=== PATIENT | female | born 1935 | race Caucasian/White ===

== ENCOUNTER → 2016-12-01 | Outpatient (CLI) | payer MEDICARE, OTHER ==
[~2016-12-01] VITALS: Ht 162.6 cm; Wt 56.7 kg
[~2016-12-01] MED LIST: ALPR0.25 PO; ASPI81CH43 PO; CLOP75TA28 PO; ESOM40CA39 PO; FURO20TA3 PO; LEVO25TA49 PO; MAGN400T23 PO; NITR0.4S29 SL; POTA-167 PO
== END | disposition home or self-care (01) ==
LOC: Rad HDHVI 10:00
PROVIDERS: ATTEND Internal Medicine Cardiovascular Disease
DX: I25.10 Atherosclerotic heart disease of native coronary artery without angina pectoris (principal); I10 Essential (primary) hypertension; I25.2 Old myocardial infarction; Z95.1 Presence of aortocoronary bypass graft; E78.00 Pure hypercholesterolemia, unspecified
CPT/HCPCS: 78452; 93017; 96374; A9500

== ENCOUNTER 2017-03-14 20:52 | Emergency (ER) | payer MEDICARE, OTHER ==
[~2017-03-14] VITALS: Ht 165.1 cm; Wt 56.7 kg
[2017-03-14 21:02] VITALS: BP 161/57
[2017-03-14 22:24] LABS: Basophils # (auto) 0 uL; Basophils % (auto) 0.2 % (0.0-2.0); Eosinophils # (auto) 0.1 uL; Eosinophils % (auto) 0.6 % (0.0-7.0); Hematocrit 41.7 % (36.0-46.0); Lymphocytes # (auto) 1.4 uL; Lymphocytes % (auto) 11.4 % (10.0-50.0); Mean Corpuscular Hemoglobin 30.8 pg (28.0-32.0); Mean Corpuscular Hgb Conc. 33.5 g/dL (32.0-36.0); Mean Corpuscular Volume 91.8 fL (80.0-100.0); Mean Platelet Volume 9.2 fL (7.4-10.4); Monocytes # (auto) 1.1 uL; Monocytes % (auto) 9.1 % (0.0-12.0); Neutrophils # (auto) 9.4 uL; Neutrophils % (auto) 78.7 % (37.0-80.0); Platelet Count (auto) 197 10^3/uL (140-450); Red Cell Distribution Width 14.2 % (11.6-16.0); SUSPECT VIEW TRANSMISSION; White Blood Cell 11.9 10^3/uL (4.4-10.8)
[2017-03-14 22:30] LABS: Chloride 106 mmol/L (98-107); Potassium 4.5 mmol/L (3.5-5.1); Sodium 143 mmol/L (136-145)
[2017-03-14 22:35] LABS: Albumin 4.3 g/dL (3.4-5.0); Alkaline Phosphatase 124 U/L (45-117); Anion Gap 14 (5-15); Aspartate Aminotransferase 32 U/L (15-37); BUN/Creatinine Ratio 21.8; Bilirubin, Total 0.4 mg/dL (0.2-1.0); Blood Urea Nitrogen 27 mg/dL (7-18); Calcium 9.3 mg/dL (8.5-10.1); Carbon Dioxide 23 mmol/L (21-32); GFR African American 53 mL/min; GFR Non-African American 44 mL/min; Glucose 87 mg/dL (74-106); INR 0.99 (0.9-1.15); Partial Thromboplastin Time 21.9 sec (22.64-33.71); Prothrombin Time 10.8 sec (9.37-12.3); Total Protein 8.4 g/dL (6.4-8.2)
[2017-03-14 23:47] LABS: B-Type Natriuretic Peptide 372.87 pg/mL (0-100)
== END 2017-03-15 01:12 | disposition left against medical advice (07) ==
LOC: ER 20:54
DX: R07.9 Chest pain, unspecified (principal); Z53.21 Procedure and treatment not carried out due to patient leaving prior to being seen by health care provider
CPT/HCPCS: 36415; 80053; 83880; 84443; 84484; 85025; 85610; 85730; 93005

== ENCOUNTER → 2017-03-16 | Outpatient (CLI) | payer MEDICARE, OTHER ==
[~2017-03-16] MED LIST changes: +CYANOCOBALAMIN (B-12) 1000 MCG/1 ML VIAL IM ONE; +CYANOCOBALAMIN (B-12) 1000 MCG/1 ML VIAL ONE; +KETOROLAC TROMETH 60MG/2ML VIAL IM ONE
[2017-03-16 16:50] VITALS: BP 178/87
[2017-03-16 17:35] VITALS: BP 173/73
== END | disposition home or self-care (01) ==
LOC: CHF HDHVI 16:31
PROVIDERS: ATTEND Internal Medicine Cardiovascular Disease
DX: D64.9 Anemia, unspecified (principal); M19.90 Unspecified osteoarthritis, unspecified site
CPT/HCPCS: 72131; 96372; G0463; J1885; J3420

== ENCOUNTER → 2017-03-20 | Outpatient (CLI) | payer MEDICARE, OTHER ==
[~2017-03-20] MED LIST changes: -CYANOCOBALAMIN (B-12) 1000 MCG/1 ML VIAL IM ONE; -CYANOCOBALAMIN (B-12) 1000 MCG/1 ML VIAL ONE; -KETOROLAC TROMETH 60MG/2ML VIAL IM ONE
== END | disposition home or self-care (01) ==
LOC: Rad HDHVI 12:09
PROVIDERS: ATTEND Internal Medicine Cardiovascular Disease
DX: M47.812 Spondylosis without myelopathy or radiculopathy, cervical region (principal); M48.02 Spinal stenosis, cervical region
CPT/HCPCS: 72125

== ENCOUNTER → 2017-04-08 | Outpatient (CLI) | payer MEDICARE, OTHER ==
[~2017-04-08] MED LIST changes: +BUMETANIDE (0.25MG/ML) 4 ML VIAL IV ONE; +BUMETANIDE (0.25MG/ML) 4 ML VIAL ONE; +CYANOCOBALAMIN (B-12) 1000 MCG/1 ML VIAL IM ONE; +CYANOCOBALAMIN (B-12) 1000 MCG/1 ML VIAL ONE; +KETOROLAC TROMETH 60MG/2ML VIAL IM ONE; +POTASSIUM CHL 10 Meq TABLET PO ONE
[2017-04-08 10:00] VITALS: BP 168/68
[2017-04-08 12:45] VITALS: BP 154/66
[2017-04-08 16:35] LABS: Basophils # (auto) 0 uL; Basophils % (auto) 0.3 % (0.0-2.0); CONDITION Y; Eosinophils # (auto) 0.1 uL; Eosinophils % (auto) 1.2 % (0.0-7.0); Hemoglobin 12.7 g/dL (12.2-16.2); Lymphocytes # (auto) 1.4 uL; Lymphocytes % (auto) 14.8 % (10.0-50.0); Mean Corpuscular Hemoglobin 30.7 pg (28.0-32.0); Mean Corpuscular Hgb Conc. 33.3 g/dL (32.0-36.0); Mean Platelet Volume 8.6 fL (7.4-10.4); Monocytes # (auto) 0.9 uL; Monocytes % (auto) 9.6 % (0.0-12.0); Neutrophils # (auto) 6.8 uL; Neutrophils % (auto) 74.1 % (37.0-80.0); Platelet Count (auto) 312 10^3/uL (140-450); Red Cell Distribution Width 14.6 % (11.6-16.0); White Blood Cell 9.2 10^3/uL (4.4-10.8)
[2017-04-08 16:47] LABS: Urine Bilirubin Negative (Negative); Urine Blood Negative /uL (Negative); Urine Color Colorless (Yellow); Urine Glucose Normal (Normal); Urine Ketone Negative (Negative); Urine Nitrite Negative (Negative); Urine RBC <1 /hpf (0 - 4); Urine Urobilinogen Normal (Negative); Urine pH 6.5 (5.0-8.0)
[2017-04-08 17:14] LABS: BUN/Creatinine Ratio 18.9; Calcium 8.7 mg/dL (8.5-10.1); Magnesium 3.3 mg/dL (1.6-2.6); Potassium 3.7 mmol/L (3.5-5.1)
== END | disposition home or self-care (01) ==
LOC: CHF HDHVI 10:44
PROVIDERS: ATTEND Internal Medicine Cardiovascular Disease
DX: I10 Essential (primary) hypertension (principal); E83.42 Hypomagnesemia; D64.9 Anemia, unspecified; N39.0 Urinary tract infection, site not specified
CPT/HCPCS: 36415; 80048; 81001; 83735; 85025; 87086; 93005; 96372; 96374; G0463; J1885; J3420; 96375

== ENCOUNTER → 2017-07-08 | Outpatient (CLI) | payer MEDICARE, OTHER ==
[~2017-07-08] MED LIST changes: -ASPI81CH43 PO; -BUMETANIDE (0.25MG/ML) 4 ML VIAL IV ONE; -BUMETANIDE (0.25MG/ML) 4 ML VIAL ONE; -CYANOCOBALAMIN (B-12) 1000 MCG/1 ML VIAL IM ONE; -CYANOCOBALAMIN (B-12) 1000 MCG/1 ML VIAL ONE; -ESOM40CA39 PO; -KETOROLAC TROMETH 60MG/2ML VIAL IM ONE; -POTASSIUM CHL 10 Meq TABLET PO ONE
[2017-07-08 12:31] LABS: BUN/Creatinine Ratio 19.6; Calcium 9.5 mg/dL (8.5-10.1); Potassium 3.8 mmol/L (3.5-5.1)
== END | disposition home or self-care (01) ==
LOC: Rad HDHVI 10:40
PROVIDERS: ATTEND Internal Medicine Cardiovascular Disease
DX: I10 Essential (primary) hypertension (principal); R06.01 Orthopnea
CPT/HCPCS: 36415; 80048; 93306

== ENCOUNTER → 2017-07-31 | Outpatient (CLI) | payer MEDICARE, OTHER ==
[~2017-07-31] MED LIST changes: +ASPI81TA27 PO; +CHOL20004 PO; +HYDR-4683 PO; +ISOS30TA4 PO; +MULT-902 OR; +TELM80TA PO; +TRAV0.00 EACHEYE; +UBIQ100C3 PO
[2017-07-31 11:25] VITALS: BP 147/66
[2017-07-31 12:58] LABS: Basophils # (auto) 0.1 uL; Basophils % (auto) 0.9 % (0.0-2.0); Eosinophils # (auto) 0.2 uL; Eosinophils % (auto) 3.2 % (0.0-7.0); Hematocrit 40.5 % (36.0-46.0); Hemoglobin 13.4 g/dL (12.2-16.2); Lymphocytes # (auto) 1.4 uL; Lymphocytes % (auto) 19.7 % (10.0-50.0); Mean Corpuscular Hemoglobin 31.2 pg (28.0-32.0); Mean Corpuscular Hgb Conc. 33.2 g/dL (32.0-36.0); Mean Corpuscular Volume 93.9 fL (80.0-100.0); Mean Platelet Volume 9.3 fL (6.9-10.8); Monocytes # (auto) 0.7 uL; Monocytes % (auto) 9.7 % (0.0-12.0); Neutrophils # (auto) 4.8 uL; Neutrophils % (auto) 66.5 % (37.0-80.0); Platelet Count (auto) 230 10^3/uL (140-450); Red Cell Distribution Width 13.7 % (11.8-14.3); White Blood Cell 7.3 10^3/uL (4.4-10.8)
[2017-07-31 13:05] LABS: BUN/Creatinine Ratio 26.5; Calcium 9.1 mg/dL (8.5-10.1); Potassium 3.8 mmol/L (3.5-5.1)
[2017-07-31 13:06] LABS: INR 1.02 (0.9-1.15); Partial Thromboplastin Time 23.9 sec (22.64-33.71); Prothrombin Time 11.1 sec (9.37-12.3)
== END | disposition home or self-care (01) ==
LOC: Rad HDHVI 11:04
PROVIDERS: ATTEND Internal Medicine Cardiovascular Disease
DX: Z01.818 Encounter for other preprocedural examination (principal); I51.7 Cardiomegaly; I70.0 Atherosclerosis of aorta; I10 Essential (primary) hypertension; R91.8 Other nonspecific abnormal finding of lung field; M48.54XA Collapsed vertebra, not elsewhere classified, thoracic region, initial encounter for fracture; M81.0 Age-related osteoporosis without current pathological fracture; R79.1 Abnormal coagulation profile; D64.9 Anemia, unspecified; Z95.1 Presence of aortocoronary bypass graft
CPT/HCPCS: 36415; 71020; 80048; 85025; 85610; 85730; 93005; G0463

== ENCOUNTER → 2017-08-11 | Outpatient (CLI) | payer MEDICARE, OTHER ==
[~2017-08-11] MED LIST changes: -MAGN400T23 PO
[2017-08-11 09:30] VITALS: BP 157/64
[2017-08-11 11:15] VITALS: BP 144/64
[2017-08-11 13:04] LABS: Magnesium 3.8 mg/dL (1.6-2.6); Potassium 4.3 mmol/L (3.5-5.1)
== END | disposition home or self-care (01) ==
LOC: CHF HDHVI 09:35
PROVIDERS: ATTEND Internal Medicine Cardiovascular Disease
DX: E87.6 Hypokalemia (principal); I11.0 Hypertensive heart disease with heart failure; I50.9 Heart failure, unspecified; I25.10 Atherosclerotic heart disease of native coronary artery without angina pectoris; R94.4 Abnormal results of kidney function studies; E83.42 Hypomagnesemia
CPT/HCPCS: 36415; 82565; 83735; 84132; 84520; 93701; 94620; G0463

== ENCOUNTER → 2017-08-31 | Outpatient (CLI) | payer MEDICARE, OTHER ==
[2017-08-31 11:00] VITALS: BP 157/60
[2017-08-31 12:20] VITALS: BP 155/65
== END | disposition home or self-care (01) ==
LOC: CHF HDHVI 10:58
PROVIDERS: ATTEND Internal Medicine Cardiovascular Disease
DX: I11.0 Hypertensive heart disease with heart failure (principal); I50.9 Heart failure, unspecified; E78.5 Hyperlipidemia, unspecified; E07.9 Disorder of thyroid, unspecified; Z95.1 Presence of aortocoronary bypass graft
CPT/HCPCS: G0463

== ENCOUNTER → 2017-09-10 | Outpatient (CLI) | payer MEDICARE, OTHER ==
[~2017-09-10] VITALS: Ht 33 cm; Wt 0.5 kg
[~2017-09-10] MED LIST changes: +FUROSEMIDE 40 MG/4 ML VIAL IV ONE; +FUROSEMIDE 40 MG/4 ML VIAL ONE; +POTASSIUM CHL 10 Meq TABLET PO ONE; +POTASSIUM CHL 20 Meq TABLET PO ONE
[2017-09-10 09:30] VITALS: BP 154/50
[2017-09-10 12:08] LABS: Basophils # (auto) 0.1 uL; Basophils % (auto) 1.2 % (0.0-2.0); Eosinophils # (auto) 0.2 uL; Eosinophils % (auto) 2.4 % (0.0-7.0); Hematocrit 40.1 % (36.0-46.0); Hemoglobin 13.2 g/dL (12.2-16.2); Lymphocytes # (auto) 1.5 uL; Mean Corpuscular Hemoglobin 30.7 pg (28.0-32.0); Mean Corpuscular Volume 93.1 fL (80.0-100.0); Mean Platelet Volume 8.7 fL (6.9-10.8); Monocytes # (auto) 0.9 uL; Monocytes % (auto) 11.6 % (0.0-12.0); Neutrophils # (auto) 4.8 uL; Neutrophils % (auto) 64.8 % (37.0-80.0); Nucleated Red Blood Cells % 0.3 %; Platelet Count (auto) 219 10^3/uL (140-450); Red Cell Distribution Width 13.7 % (11.8-14.3); White Blood Cell 7.5 10^3/uL (4.4-10.8)
[2017-09-10 12:21] LABS: BUN/Creatinine Ratio 17.1; Magnesium 2.7 mg/dL (1.6-2.6); Potassium 3.2 mmol/L (3.5-5.1)
== END | disposition home or self-care (01) ==
LOC: CHF HDHVI 08:13
PROVIDERS: ATTEND Internal Medicine Cardiovascular Disease
DX: I10 Essential (primary) hypertension (principal); E83.42 Hypomagnesemia; D64.9 Anemia, unspecified
CPT/HCPCS: 36415; 80048; 83735; 85025; J1940

== ENCOUNTER → 2017-09-15 | Outpatient (CLI) | payer MEDICARE, OTHER ==
[~2017-09-15] VITALS: Ht 30.5 cm; Wt 57.6 kg
[~2017-09-15] MED LIST changes: +CYANOCOBALAMIN (B-12) 1000 MCG/1 ML VIAL IM ONE; +CYANOCOBALAMIN (B-12) 1000 MCG/1 ML VIAL ONE; +FUROSEMIDE 20 MG/2 ML VIAL IV ONE; +FUROSEMIDE 20 MG/2 ML VIAL ONE; -FUROSEMIDE 40 MG/4 ML VIAL IV ONE; -FUROSEMIDE 40 MG/4 ML VIAL ONE; -POTASSIUM CHL 10 Meq TABLET PO ONE
[2017-09-15 13:00] VITALS: BP 116/43
[2017-09-15 13:50] VITALS: BP 110/53
[2017-09-15 16:28] LABS: Potassium 3.9 mmol/L (3.5-5.1)
== END | disposition home or self-care (01) ==
LOC: CHF HDHVI 13:05
PROVIDERS: ATTEND Internal Medicine Cardiovascular Disease
DX: E87.5 Hyperkalemia (principal); R94.4 Abnormal results of kidney function studies
CPT/HCPCS: 36415; 82565; 84132; 84520; 96372; 96374; G0463; J1940; J3420

== ENCOUNTER → 2017-09-17 | Outpatient (CLI) | payer MEDICARE, OTHER ==
[~2017-09-17] MED LIST changes: -CYANOCOBALAMIN (B-12) 1000 MCG/1 ML VIAL IM ONE; -CYANOCOBALAMIN (B-12) 1000 MCG/1 ML VIAL ONE; -FUROSEMIDE 20 MG/2 ML VIAL IV ONE; +FUROSEMIDE 40 MG/4 ML VIAL ONE; +POTASSIUM CHL 10 Meq TABLET PO ONE; +SODIUM CHLORIDE 0.9% 100 ML IV ONE
[2017-09-17 08:30] VITALS: BP 128/59
[2017-09-17 09:00] VITALS: BP 143/62
[2017-09-17 09:15] VITALS: BP 139/51
[2017-09-17 09:30] VITALS: BP 153/49
[2017-09-17 10:25] VITALS: BP 101/79
[2017-09-17 13:31] LABS: Potassium 3.8 mmol/L (3.5-5.1)
== END | disposition home or self-care (01) ==
LOC: CHF HDHVI 08:16
PROVIDERS: ATTEND Internal Medicine Cardiovascular Disease
DX: E87.5 Hyperkalemia (principal); R94.4 Abnormal results of kidney function studies; I25.10 Atherosclerotic heart disease of native coronary artery without angina pectoris; Z95.1 Presence of aortocoronary bypass graft
CPT/HCPCS: 36415; 82565; 84132; 84520; 96365; 96366; 96375; G0463; J1940

== ENCOUNTER → 2017-09-22 | Outpatient (CLI) | payer MEDICARE, OTHER ==
[~2017-09-22] MED LIST changes: +FUROSEMIDE INJECTION 60 MG in SODIUM CHL 0.9% 60 ML IV SCH; -SODIUM CHLORIDE 0.9% 100 ML IV ONE
[2017-09-22 12:41] LABS: BUN/Creatinine Ratio 25.6; Calcium 9.1 mg/dL (8.5-10.1); Potassium 3.5 mmol/L (3.5-5.1)
[2017-09-22 13:35] VITALS: BP 105/58
== END | disposition home or self-care (01) ==
LOC: CHF HDHVI 10:03
PROVIDERS: ATTEND Internal Medicine Cardiovascular Disease
DX: E83.42 Hypomagnesemia (principal); I10 Essential (primary) hypertension; I25.10 Atherosclerotic heart disease of native coronary artery without angina pectoris; R60.9 Edema, unspecified
CPT/HCPCS: 36415; 80048; 83735; 96365; 96366; G0463; J1940

== ENCOUNTER → 2017-09-24 | Outpatient (CLI) | payer MEDICARE, OTHER ==
[~2017-09-24] MED LIST changes: -FUROSEMIDE 20 MG/2 ML VIAL ONE; -FUROSEMIDE 40 MG/4 ML VIAL ONE; +FUROSEMIDE INJECTION 10 ML ONE; +FUROSEMIDE INJECTION 100 MG in SODIUM CHL 0.9% 100 ML IV SCH; -FUROSEMIDE INJECTION 60 MG in SODIUM CHL 0.9% 60 ML IV SCH
[2017-09-24 13:50] VITALS: BP 127/52
== END | disposition home or self-care (01) ==
LOC: CHF HDHVI 09:37
PROVIDERS: ATTEND Internal Medicine Cardiovascular Disease
DX: I27.21 Secondary pulmonary arterial hypertension (principal)
CPT/HCPCS: 96365; 96366; G0463; J1940

== ENCOUNTER → 2017-09-29 | Outpatient (CLI) | payer MEDICARE, OTHER ==
[~2017-09-29] VITALS: Ht 30.5 cm; Wt 55.3 kg
[~2017-09-29] MED LIST changes: +FUROSEMIDE 20 MG/2 ML VIAL ONE; +FUROSEMIDE 40 MG/4 ML VIAL ONE; -FUROSEMIDE INJECTION 10 ML ONE; -FUROSEMIDE INJECTION 100 MG in SODIUM CHL 0.9% 100 ML IV SCH; +FUROSEMIDE INJECTION 60 MG in SODIUM CHL 0.9% 60 ML IV SCH
[2017-09-29 08:30] VITALS: BP 128/52
[2017-09-29 08:45] VITALS: BP 131/45
[2017-09-29 09:00] VITALS: BP 130/49
[2017-09-29 11:20] VITALS: BP 119/41
== END | disposition home or self-care (01) ==
LOC: CHF HDHVI 07:49
PROVIDERS: ATTEND Internal Medicine Cardiovascular Disease
DX: I25.10 Atherosclerotic heart disease of native coronary artery without angina pectoris (principal); E87.70 Fluid overload, unspecified; I27.21 Secondary pulmonary arterial hypertension
CPT/HCPCS: 96365; 96366; G0463; J1642; J1940

== ENCOUNTER → 2017-10-01 | Outpatient (CLI) | payer MEDICARE, OTHER ==
[~2017-10-01] MED LIST changes: +FUROSEMIDE INJECTION 100 MG in SODIUM CHL 0.9% 100 ML IV SCH; -FUROSEMIDE INJECTION 60 MG in SODIUM CHL 0.9% 60 ML IV SCH; -POTASSIUM CHL 20 Meq TABLET PO ONE; +POTASSIUM CHL 20 Meq TABLET PO SCH
[2017-10-01 09:20] VITALS: BP 147/57
[2017-10-01 09:30] VITALS: BP 131/51
[2017-10-01 10:00] VITALS: BP 129/52
[2017-10-01 10:30] VITALS: BP 127/47
[2017-10-01 11:00] VITALS: BP 126/47
[2017-10-01 12:23] VITALS: BP 128/43
[2017-10-01 16:51] LABS: Potassium 3.6 mmol/L (3.5-5.1)
== END | disposition home or self-care (01) ==
LOC: CHF HDHVI 09:07
PROVIDERS: ATTEND Internal Medicine Cardiovascular Disease
DX: E87.5 Hyperkalemia (principal); R94.4 Abnormal results of kidney function studies; I27.21 Secondary pulmonary arterial hypertension; E87.70 Fluid overload, unspecified
CPT/HCPCS: 36415; 82565; 84132; 84520; 96365; 96366; G0463; J1940

== ENCOUNTER → 2017-10-08 | Outpatient (CLI) | payer MEDICARE, OTHER ==
[~2017-10-08] VITALS: Ht 30.5 cm; Wt 0.5 kg
[~2017-10-08] MED LIST changes: -FUROSEMIDE INJECTION 100 MG in SODIUM CHL 0.9% 100 ML IV SCH; +FUROSEMIDE IV SCH; +POTASSIUM CHL 20 Meq TABLET PO ONE; -POTASSIUM CHL 20 Meq TABLET PO SCH; +SODIUM CHL 0.9% IV SCH
[2017-10-08 12:50] VITALS: BP 108/70
[2017-10-08 16:03] LABS: Basophils # (auto) 0.1 uL; Basophils % (auto) 1.5 % (0.0-2.0); Eosinophils # (auto) 0.1 uL; Hematocrit 38.6 % (36.0-46.0); Hemoglobin 12.9 g/dL (12.2-16.2); Lymphocytes # (auto) 1.4 uL; Lymphocytes % (auto) 19.3 % (10.0-50.0); Mean Corpuscular Hemoglobin 30.6 pg (28.0-32.0); Mean Corpuscular Hgb Conc. 33.5 g/dL (32.0-36.0); Mean Corpuscular Volume 91.5 fL (80.0-100.0); Monocytes # (auto) 0.7 uL; Monocytes % (auto) 9.7 % (0.0-12.0); Neutrophils # (auto) 4.8 uL; Neutrophils % (auto) 67.5 % (37.0-80.0); Nucleated Red Blood Cells % 0.4 %; Platelet Count (auto) 201 10^3/uL (140-450); Red Blood Cells 4.22 10^6/uL (4.0-5.20); Red Cell Distribution Width 14.2 % (11.8-14.3); White Blood Cell 7.1 10^3/uL (4.4-10.8)
[2017-10-08 16:16] LABS: BUN/Creatinine Ratio 24.1; Calcium 9.3 mg/dL (8.5-10.1); Magnesium 3.1 mg/dL (1.6-2.6); Potassium 3.6 mmol/L (3.5-5.1)
[2017-10-08 16:24] LABS: INR 0.99 (0.9-1.15); Partial Thromboplastin Time 28.7 sec (22.64-33.71); Prothrombin Time 10.8 sec (9.37-12.3)
== END | disposition home or self-care (01) ==
LOC: CHF HDHVI 09:15
PROVIDERS: ATTEND Internal Medicine Cardiovascular Disease
DX: D64.9 Anemia, unspecified (principal); I10 Essential (primary) hypertension; R79.1 Abnormal coagulation profile; D55.9 Anemia due to enzyme disorder, unspecified
CPT/HCPCS: 36415; 80048; 82306; 83735; 85025; 85610; 85730; J1940

== ENCOUNTER → 2017-10-15 | Outpatient (CLI) | payer MEDICARE, OTHER ==
[~2017-10-15] MED LIST changes: +BUMETANIDE INJECTION 10 ML ONE; -FUROSEMIDE 20 MG/2 ML VIAL ONE; -FUROSEMIDE 40 MG/4 ML VIAL ONE; +FUROSEMIDE INJECTION 0 ML ONE; -FUROSEMIDE IV SCH; +METOLAZONE 5 MG TAB ONE; +METOLAZONE 5 MG TAB PO ONE; -SODIUM CHL 0.9% IV SCH
[2017-10-15 09:00] VITALS: BP 138/59
[2017-10-15 10:50] VITALS: BP 139/52
[2017-10-15 16:22] VITALS: BP 138/59
== END | disposition home or self-care (01) ==
LOC: CHF HDHVI 09:24
PROVIDERS: ATTEND Internal Medicine Cardiovascular Disease
DX: E87.0 Hyperosmolality and hypernatremia (principal)
CPT/HCPCS: 36415; 84295; 96374; G0463

== ENCOUNTER → 2017-10-19 | Outpatient (CLI) | payer MEDICARE, OTHER ==
[~2017-10-19] VITALS: Ht 165.1 cm; Wt 0.5 kg
[~2017-10-19] MED LIST changes: -BUMETANIDE INJECTION 10 ML ONE; +FUROSEMIDE 100 MG/10ML VIAL IV ONE; -FUROSEMIDE INJECTION 0 ML ONE; +FUROSEMIDE INJECTION 10 ML ONE; -METOLAZONE 5 MG TAB ONE; -METOLAZONE 5 MG TAB PO ONE; -POTASSIUM CHL 10 Meq TABLET PO ONE; +SODIUM CHLORIDE 0.9% 150 ML IV SCH
[2017-10-19 10:28] LABS: Basophils # (auto) 0 uL; Basophils % (auto) 0.7 % (0.0-2.0); Eosinophils # (auto) 0 uL; Eosinophils % (auto) 0.6 % (0.0-7.0); Hematocrit 35.7 % (36.0-46.0); Hemoglobin 12.2 g/dL (12.2-16.2); Lymphocytes # (auto) 0.9 uL; Lymphocytes % (auto) 13.1 % (10.0-50.0); Mean Corpuscular Hemoglobin 30.6 pg (28.0-32.0); Mean Corpuscular Hgb Conc. 34.2 g/dL (32.0-36.0); Mean Corpuscular Volume 89.6 fL (80.0-100.0); Monocytes # (auto) 0.8 uL; Monocytes % (auto) 11.9 % (0.0-12.0); Neutrophils # (auto) 5.2 uL; Neutrophils % (auto) 73.7 % (37.0-80.0); Platelet Count (auto) 223 10^3/uL (140-450); Red Blood Cells 3.98 10^6/uL (4.0-5.20); Red Cell Distribution Width 13.7 % (11.8-14.3); White Blood Cell 7.1 10^3/uL (4.4-10.8)
[2017-10-19 10:47] LABS: Potassium 2.3 mmol/L (3.5-5.1)
[2017-10-19 13:45] VITALS: BP 127/48
== END | disposition home or self-care (01) ==
LOC: CHF HDHVI 09:28
PROVIDERS: ATTEND Internal Medicine Cardiovascular Disease
DX: E87.5 Hyperkalemia (principal); R94.4 Abnormal results of kidney function studies; D64.9 Anemia, unspecified; I50.9 Heart failure, unspecified; I25.10 Atherosclerotic heart disease of native coronary artery without angina pectoris; I83.018 Varicose veins of right lower extremity with ulcer other part of lower leg; I83.028 Varicose veins of left lower extremity with ulcer other part of lower leg
CPT/HCPCS: 36415; 82565; 84132; 84520; 85025; 96365; 96366; G0463; J1940

== ENCOUNTER → 2017-10-22 | Outpatient (CLI) | payer MEDICARE, OTHER ==
[~2017-10-22] MED LIST changes: -FUROSEMIDE 100 MG/10ML VIAL IV ONE; +FUROSEMIDE 20 MG/2 ML VIAL ONE; +FUROSEMIDE 40 MG/4 ML VIAL ONE; -FUROSEMIDE INJECTION 10 ML ONE; +FUROSEMIDE IV SCH; +SODIUM CHL 0.9% IV SCH; -SODIUM CHLORIDE 0.9% 150 ML IV SCH
[2017-10-22 10:40] VITALS: BP 103/35
[2017-10-22 10:41] LABS: BUN/Creatinine Ratio 31.5; Calcium 8.6 mg/dL (8.5-10.1); Potassium 3.3 mmol/L (3.5-5.1)
[2017-10-22 12:40] VITALS: BP 103/40
== END | disposition home or self-care (01) ==
LOC: CHF HDHVI 09:12
PROVIDERS: ATTEND Internal Medicine Cardiovascular Disease
DX: I10 Essential (primary) hypertension (principal)
CPT/HCPCS: 36415; 80048; J1940; 96365; 96366; G0463

== ENCOUNTER → 2017-10-29 | Outpatient (CLI) | payer MEDICARE, OTHER ==
[2017-10-29] VITALS (7 sets, daily range): BP systolic 118–142; BP diastolic 41–58
[~2017-10-29] MED LIST changes: -FUROSEMIDE 20 MG/2 ML VIAL ONE
[2017-10-29 11:58] LABS: Basophils # (auto) 0.1 uL; Basophils % (auto) 1.4 % (0.0-2.0); Eosinophils # (auto) 0.1 uL; Eosinophils % (auto) 1.9 % (0.0-7.0); Hematocrit 36.5 % (36.0-46.0); Hemoglobin 11.8 g/dL (12.2-16.2); Lymphocytes # (auto) 1.2 uL; Mean Corpuscular Hgb Conc. 32.4 g/dL (32.0-36.0); Mean Corpuscular Volume 92.6 fL (80.0-100.0); Monocytes # (auto) 0.9 uL; Monocytes % (auto) 12.5 % (0.0-12.0); Neutrophils # (auto) 4.9 uL; Neutrophils % (auto) 68.2 % (37.0-80.0); Nucleated Red Blood Cells % 0.3 %; Platelet Count (auto) 232 10^3/uL (140-450); Red Blood Cells 3.94 10^6/uL (4.0-5.20); Red Cell Distribution Width 14.5 % (11.8-14.3); White Blood Cell 7.2 10^3/uL (4.4-10.8)
[2017-10-29 12:08] LABS: BUN/Creatinine Ratio 23.4; Calcium 8.6 mg/dL (8.5-10.1); Magnesium 3.2 mg/dL (1.6-2.6); Potassium 3.9 mmol/L (3.5-5.1)
== END | disposition home or self-care (01) ==
LOC: CHF HDHVI 09:07
PROVIDERS: ATTEND Internal Medicine Cardiovascular Disease
DX: E83.42 Hypomagnesemia (principal); D64.9 Anemia, unspecified; I11.9 Hypertensive heart disease without heart failure; I27.21 Secondary pulmonary arterial hypertension; I25.10 Atherosclerotic heart disease of native coronary artery without angina pectoris; J44.9 Chronic obstructive pulmonary disease, unspecified; J90 Pleural effusion, not elsewhere classified
CPT/HCPCS: 36415; 71046; 80048; 83735; 85025; 96365; 96366; G0463; J1940; J7040

== ENCOUNTER → 2017-11-02 | Outpatient (CLI) | payer MEDICARE, OTHER ==
[~2017-11-02] MED LIST changes: +CYANOCOBALAMIN (B-12) 1000 MCG/1 ML VIAL IM ONE; +CYANOCOBALAMIN (B-12) 1000 MCG/1 ML VIAL ONE; -FUROSEMIDE 40 MG/4 ML VIAL ONE; +FUROSEMIDE INJECTION 10 ML ONE; +POTASSIUM CHL 10 Meq TABLET PO ONE
[2017-11-02 12:39] LABS: Magnesium 2.9 mg/dL (1.6-2.6); Potassium 3.9 mmol/L (3.5-5.1)
[2017-11-02 12:50] VITALS: BP 125/48
== END | disposition home or self-care (01) ==
LOC: CHF HDHVI 09:08
PROVIDERS: ATTEND Internal Medicine Cardiovascular Disease
DX: I50.9 Heart failure, unspecified (principal); E87.5 Hyperkalemia; R94.4 Abnormal results of kidney function studies; E83.42 Hypomagnesemia; I25.10 Atherosclerotic heart disease of native coronary artery without angina pectoris; D64.9 Anemia, unspecified
CPT/HCPCS: 36415; 82565; 83735; 83880; 84132; 84520; 96365; 96366; 96372; G0463; J1940; J3420

== ENCOUNTER → 2017-11-05 | Outpatient (CLI) | payer MEDICARE, OTHER ==
[~2017-11-05] MED LIST changes: +ALBUTEROL SULF 2.5 MG/0.5ML(0.5%) NEB SOLN NEB ONE; +ALBUTEROL SULF 2.5 MG/0.5ML(0.5%) NEB SOLN ONE; -CYANOCOBALAMIN (B-12) 1000 MCG/1 ML VIAL IM ONE; -CYANOCOBALAMIN (B-12) 1000 MCG/1 ML VIAL ONE; -FUROSEMIDE INJECTION 10 ML ONE; -FUROSEMIDE IV SCH; -POTASSIUM CHL 10 Meq TABLET PO ONE; -POTASSIUM CHL 20 Meq TABLET PO ONE; -SODIUM CHL 0.9% IV SCH
[2017-11-05 10:40] VITALS: BP 143/54
[2017-11-05 11:20] VITALS: BP 133/56
== END | disposition home or self-care (01) ==
LOC: CHF HDHVI 10:37
PROVIDERS: ATTEND Internal Medicine Cardiovascular Disease
DX: I27.21 Secondary pulmonary arterial hypertension (principal); D64.9 Anemia, unspecified; R53.83 Other fatigue; R53.81 Other malaise; H40.9 Unspecified glaucoma; H35.30 Unspecified macular degeneration
CPT/HCPCS: 94640; G0463

== ENCOUNTER → 2017-11-12 | Outpatient (CLI) | payer MEDICARE, OTHER ==
[~2017-11-12] VITALS: Ht 30.5 cm; Wt 0.5 kg
[~2017-11-12] MED LIST changes: -ALBUTEROL SULF 2.5 MG/0.5ML(0.5%) NEB SOLN NEB ONE; -ALBUTEROL SULF 2.5 MG/0.5ML(0.5%) NEB SOLN ONE; +FUROSEMIDE 20 MG/2 ML VIAL ONE; +FUROSEMIDE 40 MG/4 ML VIAL ONE; +POTASSIUM CHL 10 Meq TABLET PO ONE; +POTASSIUM CHL 20 Meq TABLET PO ONE; +SODIUM CHLORIDE 0.9% 60 ML IV SCH
[2017-11-12] MEDS: FUROSEMIDE 20 MG/2 ML VIAL IV SCH (10:30)
[2017-11-12 11:00] VITALS: BP 140/53
[2017-11-12 11:30] VITALS: BP 140/52
[2017-11-12 12:00] VITALS: BP 124/43
[2017-11-12 12:11] LABS: Basophils # (auto) 0.1 uL; Basophils % (auto) 1.2 % (0.0-2.0); Eosinophils # (auto) 0.1 uL; Eosinophils % (auto) 1.5 % (0.0-7.0); Hemoglobin 12.3 g/dL (12.2-16.2); Lymphocytes # (auto) 1.3 uL; Lymphocytes % (auto) 18.1 % (10.0-50.0); Mean Corpuscular Hemoglobin 30.4 pg (28.0-32.0); Mean Corpuscular Hgb Conc. 33.2 g/dL (32.0-36.0); Mean Corpuscular Volume 91.7 fL (80.0-100.0); Monocytes # (auto) 0.8 uL; Monocytes % (auto) 10.9 % (0.0-12.0); Neutrophils % (auto) 68.3 % (37.0-80.0); Nucleated Red Blood Cells % 0.2 %; Platelet Count (auto) 178 10^3/uL (140-450); Red Blood Cells 4.03 10^6/uL (4.0-5.20); White Blood Cell 7.2 10^3/uL (4.4-10.8)
[2017-11-12 12:19] LABS: BUN/Creatinine Ratio 24.1; Calcium 9.3 mg/dL (8.5-10.1); Potassium 3.8 mmol/L (3.5-5.1)
[2017-11-12 12:30] VITALS: BP 118/41
[2017-11-12 13:00] VITALS: BP 121/48
[2017-11-12 13:30] VITALS: BP 125/49
== END | disposition home or self-care (01) ==
LOC: CHF HDHVI 09:51
PROVIDERS: ATTEND Internal Medicine Cardiovascular Disease
DX: E83.42 Hypomagnesemia (principal); D64.9 Anemia, unspecified; I10 Essential (primary) hypertension
CPT/HCPCS: 36415; 80048; 83735; 85025; 94640; 96365; 96366; G0463; J1940

== ENCOUNTER → 2017-11-20 | Outpatient (CLI) | payer MEDICARE, OTHER ==
[~2017-11-20] MED LIST changes: +FUROSEMIDE 20 MG/2 ML VIAL IV ONE; +SODIUM CHLORIDE 0.9% 54 ML IV ONE; -SODIUM CHLORIDE 0.9% 60 ML IV SCH
[2017-11-20 11:15] VITALS: BP 129/45
[2017-11-20 11:45] VITALS: BP 122/42
[2017-11-20 12:15] VITALS: BP 123/40
[2017-11-20 12:45] VITALS: BP 124/55
[2017-11-20 12:50] VITALS: BP 124/55
== END | disposition home or self-care (01) ==
LOC: CHF HDHVI 09:15
PROVIDERS: ATTEND Internal Medicine Cardiovascular Disease
DX: I27.21 Secondary pulmonary arterial hypertension (principal); I87.2 Venous insufficiency (chronic) (peripheral); M79.89 Other specified soft tissue disorders
CPT/HCPCS: 96365; 96366; G0463; J1940; J7030

== ENCOUNTER → 2017-11-26 | Outpatient (CLI) | payer MEDICARE, OTHER ==
[2017-11-26] VITALS (7 sets, daily range): BP systolic 116–138; BP diastolic 41–54
[~2017-11-26] VITALS: Ht 165.1 cm; Wt 57.2 kg
[~2017-11-26] MED LIST changes: -FUROSEMIDE 20 MG/2 ML VIAL IV ONE; -FUROSEMIDE 20 MG/2 ML VIAL ONE; -FUROSEMIDE 40 MG/4 ML VIAL ONE; +FUROSEMIDE INJECTION 10 ML ONE; +FUROSEMIDE INJECTION 100 MG in SODIUM CHL 0.9% 100 ML IV SCH; -POTASSIUM CHL 10 Meq TABLET PO ONE; -SODIUM CHLORIDE 0.9% 54 ML IV ONE
[2017-11-26 16:25] LABS: Basophils # (auto) 0.1 uL; Basophils % (auto) 1.4 % (0.0-2.0); Eosinophils # (auto) 0.1 uL; Hematocrit 37.4 % (36.0-46.0); Hemoglobin 12.3 g/dL (12.2-16.2); Lymphocytes # (auto) 1.2 uL; Lymphocytes % (auto) 17.6 % (10.0-50.0); Mean Corpuscular Hemoglobin 30.6 pg (28.0-32.0); Mean Corpuscular Volume 92.8 fL (80.0-100.0); Monocytes # (auto) 0.7 uL; Monocytes % (auto) 10.9 % (0.0-12.0); Neutrophils # (auto) 4.5 uL; Neutrophils % (auto) 68.1 % (37.0-80.0); Nucleated Red Blood Cells % 0.1 %; Platelet Count (auto) 196 10^3/uL (140-450); Red Blood Cells 4.03 10^6/uL (4.0-5.20); Red Cell Distribution Width 14.4 % (11.8-14.3); White Blood Cell 6.6 10^3/uL (4.4-10.8)
[2017-11-26 16:32] LABS: BUN/Creatinine Ratio 25.5; Calcium 8.9 mg/dL (8.5-10.1); Potassium 3.9 mmol/L (3.5-5.1)
== END | disposition home or self-care (01) ==
LOC: Rad HDHVI 09:09
PROVIDERS: ATTEND Internal Medicine Cardiovascular Disease
DX: E83.40 Disorders of magnesium metabolism, unspecified (principal); D64.9 Anemia, unspecified; I10 Essential (primary) hypertension
CPT/HCPCS: 36415; 80048; 85025; 93306; 93701; 96365; 96366; G0463; J1940

== ENCOUNTER → 2017-12-03 | Outpatient (CLI) | payer MEDICARE, OTHER ==
[~2017-12-03] VITALS: Ht 30.5 cm; Wt 56.4 kg
[~2017-12-03] MED LIST changes: +FUROSEMIDE 100 MG/10ML VIAL IV ONE; -FUROSEMIDE INJECTION 100 MG in SODIUM CHL 0.9% 100 ML IV SCH; +POTASSIUM CHL 10 Meq TABLET PO ONE; +SODIUM CHLORIDE 0.9% 1,000 ML IV SCH
[2017-12-03 12:02] LABS: Basophils # (auto) 0.1 uL; Basophils % (auto) 1.3 % (0.0-2.0); Eosinophils # (auto) 0.1 uL; Eosinophils % (auto) 2.1 % (0.0-7.0); Hematocrit 39.1 % (36.0-46.0); Hemoglobin 12.9 g/dL (12.2-16.2); Lymphocytes # (auto) 1.5 uL; Lymphocytes % (auto) 22.9 % (10.0-50.0); Mean Corpuscular Hemoglobin 30.5 pg (28.0-32.0); Mean Corpuscular Hgb Conc. 33.1 g/dL (32.0-36.0); Mean Corpuscular Volume 92.1 fL (80.0-100.0); Monocytes # (auto) 0.8 uL; Neutrophils % (auto) 61.7 % (37.0-80.0); Nucleated Red Blood Cells % 0.2 %; Platelet Count (auto) 186 10^3/uL (140-450); Red Blood Cells 4.24 10^6/uL (4.0-5.20); Red Cell Distribution Width 13.9 % (11.8-14.3); White Blood Cell 6.5 10^3/uL (4.4-10.8)
[2017-12-03 12:22] LABS: Potassium 3.9 mmol/L (3.5-5.1)
[2017-12-03 13:25] VITALS: BP 122/52
== END | disposition home or self-care (01) ==
LOC: CHF HDHVI 09:13
PROVIDERS: ATTEND Internal Medicine Cardiovascular Disease
DX: D64.9 Anemia, unspecified (principal); E87.5 Hyperkalemia; R94.4 Abnormal results of kidney function studies
CPT/HCPCS: 36415; 82565; 84132; 84520; 85025; 94618; 96365; 96366; G0463; J1940

== ENCOUNTER → 2017-12-10 | Outpatient (CLI) | payer MEDICARE, OTHER ==
[~2017-12-10] MED LIST changes: -FUROSEMIDE 100 MG/10ML VIAL IV ONE; +FUROSEMIDE INJECTION 100 MG in SODIUM CHL 0.9% 100 ML IV SCH; -SODIUM CHLORIDE 0.9% 1,000 ML IV SCH
[2017-12-10 13:25] VITALS: BP 127/48
[2017-12-10 16:52] LABS: Potassium 3.9 mmol/L (3.5-5.1)
== END | disposition home or self-care (01) ==
LOC: CHF HDHVI 09:22
PROVIDERS: ATTEND Internal Medicine Cardiovascular Disease
DX: E87.6 Hypokalemia (principal); R94.4 Abnormal results of kidney function studies; I27.21 Secondary pulmonary arterial hypertension; E87.70 Fluid overload, unspecified
CPT/HCPCS: 36415; 82565; 84132; 84520; 96365; 96366; G0463; J1940

== ENCOUNTER → 2017-12-17 | Outpatient (CLI) | payer MEDICARE, OTHER ==
[2017-12-17 10:00] VITALS: BP 127/51
[2017-12-17 10:30] VITALS: BP 129/51
[2017-12-17 11:00] VITALS: BP 123/46
[2017-12-17 11:30] VITALS: BP 119/45
[2017-12-17 12:00] VITALS: BP 117/50
[2017-12-17 12:06] LABS: Basophils # (auto) 0.1 uL; Basophils % (auto) 0.9 % (0.0-2.0); Eosinophils # (auto) 0.1 uL; Eosinophils % (auto) 1.6 % (0.0-7.0); Hematocrit 39.3 % (36.0-46.0); Hemoglobin 12.9 g/dL (12.2-16.2); Lymphocytes # (auto) 1.2 uL; Lymphocytes % (auto) 15.5 % (10.0-50.0); Mean Corpuscular Hemoglobin 30.1 pg (28.0-32.0); Mean Corpuscular Hgb Conc. 32.8 g/dL (32.0-36.0); Mean Corpuscular Volume 91.6 fL (80.0-100.0); Monocytes # (auto) 0.9 uL; Monocytes % (auto) 12.4 % (0.0-12.0); Neutrophils # (auto) 5.3 uL; Neutrophils % (auto) 69.6 % (37.0-80.0); Nucleated Red Blood Cells % 0.1 %; Platelet Count (auto) 186 10^3/uL (140-450); Red Blood Cells 4.29 10^6/uL (4.0-5.20); Red Cell Distribution Width 14.1 % (11.8-14.3); White Blood Cell 7.6 10^3/uL (4.4-10.8)
[2017-12-17 12:15] LABS: BUN/Creatinine Ratio 23.4; Calcium 8.9 mg/dL (8.5-10.1); Potassium 3.6 mmol/L (3.5-5.1)
[2017-12-17 12:45] VITALS: BP 133/57
== END | disposition home or self-care (01) ==
LOC: CHF HDHVI 09:11
PROVIDERS: ATTEND Internal Medicine Cardiovascular Disease
DX: D64.9 Anemia, unspecified (principal); I10 Essential (primary) hypertension; E87.70 Fluid overload, unspecified
CPT/HCPCS: 36415; 80048; 85025; 96365; 96366; G0463; J1940

== ENCOUNTER → 2017-12-24 | Outpatient (CLI) | payer MEDICARE, OTHER ==
[~2017-12-24] MED LIST changes: +FUROSEMIDE 100 MG/10ML VIAL IV ONE; -FUROSEMIDE INJECTION 100 MG in SODIUM CHL 0.9% 100 ML IV SCH; +MAGNESIUM CITRATE SOLUTION 300 ML BTL ONE; +MAGNESIUM CITRATE SOLUTION 300 ML BTL PO ONE
[2017-12-24 10:00] VITALS: BP 127/45
[2017-12-24 10:30] VITALS: BP 136/46
[2017-12-24 11:00] VITALS: BP 104/38
[2017-12-24 11:30] VITALS: BP 116/44
[2017-12-24 12:10] LABS: Potassium 4.1 mmol/L (3.5-5.1)
[2017-12-24 13:25] VITALS: BP 109/40
== END | disposition home or self-care (01) ==
LOC: CHF HDHVI 09:24
PROVIDERS: ATTEND Internal Medicine Cardiovascular Disease
DX: E87.6 Hypokalemia (principal); I11.0 Hypertensive heart disease with heart failure; I50.23 Acute on chronic systolic (congestive) heart failure; R94.4 Abnormal results of kidney function studies; I27.21 Secondary pulmonary arterial hypertension; R53.83 Other fatigue; K59.00 Constipation, unspecified; E55.9 Vitamin D deficiency, unspecified; E53.8 Deficiency of other specified B group vitamins
CPT/HCPCS: 36415; 82565; 84132; 84520; 96365; 96366; G0463; J1940

== ENCOUNTER → 2017-12-30 | Outpatient (CLI) | payer MEDICARE, OTHER ==
[2017-12-30] VITALS (7 sets, daily range): BP systolic 103–123; BP diastolic 34–46
[~2017-12-30] MED LIST changes: +CYANOCOBALAMIN (B-12) 1000 MCG/1 ML VIAL IM ONE; +CYANOCOBALAMIN (B-12) 1000 MCG/1 ML VIAL ONE; +KETOROLAC TROMETH 60MG/2ML VIAL IM ONE; -MAGNESIUM CITRATE SOLUTION 300 ML BTL ONE; -MAGNESIUM CITRATE SOLUTION 300 ML BTL PO ONE
== END | disposition home or self-care (01) ==
LOC: CHF HDHVI 09:02
PROVIDERS: ATTEND Internal Medicine Cardiovascular Disease
DX: I50.33 Acute on chronic diastolic (congestive) heart failure (principal); E87.6 Hypokalemia; R94.4 Abnormal results of kidney function studies; E55.9 Vitamin D deficiency, unspecified; D51.9 Vitamin B12 deficiency anemia, unspecified; M19.90 Unspecified osteoarthritis, unspecified site; I25.10 Atherosclerotic heart disease of native coronary artery without angina pectoris; M54.2 Cervicalgia; R53.83 Other fatigue; R53.81 Other malaise
CPT/HCPCS: 36415; 82306; 82565; 82607; 83880; 84132; 84520; 96365; 96366; 96372; G0463; J1885; J1940; J3420

== ENCOUNTER → 2018-01-06 | Outpatient (CLI) | payer MEDICARE, OTHER ==
[~2018-01-06] MED LIST changes: -CYANOCOBALAMIN (B-12) 1000 MCG/1 ML VIAL IM ONE; -CYANOCOBALAMIN (B-12) 1000 MCG/1 ML VIAL ONE; +FUROSEMIDE INJECTION 100 MG in SODIUM CHL 0.9% 100 ML IV SCH; +SODIUM CHLORIDE 0.9% 1,000 ML IV SCH
[2018-01-06 12:28] LABS: Basophils # (auto) 0.1 uL; Basophils % (auto) 1.3 % (0.0-2.0); Eosinophils # (auto) 0.2 uL; Eosinophils % (auto) 3.8 % (0.0-7.0); Hematocrit 37.3 % (36.0-46.0); Hemoglobin 12.4 g/dL (12.2-16.2); Lymphocytes # (auto) 1.1 uL; Lymphocytes % (auto) 17.6 % (10.0-50.0); Mean Corpuscular Hemoglobin 30.5 pg (28.0-32.0); Mean Corpuscular Hgb Conc. 33.3 g/dL (32.0-36.0); Mean Corpuscular Volume 91.5 fL (80.0-100.0); Monocytes # (auto) 0.8 uL; Monocytes % (auto) 12.2 % (0.0-12.0); Neutrophils # (auto) 4.2 uL; Neutrophils % (auto) 65.1 % (37.0-80.0); Nucleated Red Blood Cells % 0.4 %; Platelet Count (auto) 182 10^3/uL (140-450); Red Blood Cells 4.07 10^6/uL (4.0-5.20); Red Cell Distribution Width 14.2 % (11.8-14.3); White Blood Cell 6.4 10^3/uL (4.4-10.8)
[2018-01-06 12:33] LABS: BUN/Creatinine Ratio 20.3; Calcium 8.7 mg/dL (8.5-10.1); Magnesium 3.1 mg/dL (1.6-2.6); Potassium 3.9 mmol/L (3.5-5.1)
[2018-01-06 13:10] VITALS: BP 117/41
== END | disposition home or self-care (01) ==
LOC: CHF HDHVI 09:12
PROVIDERS: ATTEND Internal Medicine Cardiovascular Disease
DX: I11.0 Hypertensive heart disease with heart failure (principal); I50.9 Heart failure, unspecified; D64.9 Anemia, unspecified; E83.40 Disorders of magnesium metabolism, unspecified; I25.10 Atherosclerotic heart disease of native coronary artery without angina pectoris; I27.21 Secondary pulmonary arterial hypertension; M54.2 Cervicalgia; M54.9 Dorsalgia, unspecified
CPT/HCPCS: 36415; 80048; 83735; 85025; 96365; 96366; 96372; G0463; J1885; J1940

== ENCOUNTER → 2018-01-14 | Outpatient (CLI) | payer MEDICARE, OTHER ==
[~2018-01-14] MED LIST changes: -FUROSEMIDE 100 MG/10ML VIAL IV ONE; +FUROSEMIDE 20 MG/2 ML VIAL ONE; +FUROSEMIDE 40 MG TAB ONE; +FUROSEMIDE 40 MG TAB PO SCH; +FUROSEMIDE 40 MG/4 ML VIAL ONE; -FUROSEMIDE INJECTION 10 ML ONE; -FUROSEMIDE INJECTION 100 MG in SODIUM CHL 0.9% 100 ML IV SCH; -POTASSIUM CHL 20 Meq TABLET PO ONE; -SODIUM CHLORIDE 0.9% 1,000 ML IV SCH
[2018-01-14 10:30] VITALS: BP 135/52
[2018-01-14 11:00] VITALS: BP 126/46
[2018-01-14 11:30] VITALS: BP 115/40
[2018-01-14 12:00] VITALS: BP 101/34
[2018-01-14 12:03] LABS: Basophils # (auto) 0.1 uL; Eosinophils # (auto) 0.2 uL; Eosinophils % (auto) 2.8 % (0.0-7.0); Hematocrit 36.3 % (36.0-46.0); Lymphocytes # (auto) 1.2 uL; Lymphocytes % (auto) 18.4 % (10.0-50.0); Mean Corpuscular Hemoglobin 30.5 pg (28.0-32.0); Mean Corpuscular Volume 92.4 fL (80.0-100.0); Monocytes # (auto) 0.9 uL; Monocytes % (auto) 12.7 % (0.0-12.0); Neutrophils # (auto) 4.4 uL; Neutrophils % (auto) 65.1 % (37.0-80.0); Nucleated Red Blood Cells % 0.2 %; Platelet Count (auto) 193 10^3/uL (140-450); Red Blood Cells 3.93 10^6/uL (4.0-5.20); Red Cell Distribution Width 14.3 % (11.8-14.3); White Blood Cell 6.8 10^3/uL (4.4-10.8)
[2018-01-14 12:23] LABS: Albumin 3.9 g/dL (3.4-5.0); BUN/Creatinine Ratio 20.8; Bilirubin, Total 0.6 mg/dL (0.2-1.0); Calcium 8.7 mg/dL (8.5-10.1); Magnesium 3.3 mg/dL (1.6-2.6); Potassium 4.1 mmol/L (3.5-5.1); Total Protein 7.8 g/dL (6.4-8.2)
[2018-01-14 13:30] VITALS: BP 124/47
== END | disposition home or self-care (01) ==
LOC: CHF HDHVI 09:49
PROVIDERS: ATTEND Internal Medicine Cardiovascular Disease
DX: I11.0 Hypertensive heart disease with heart failure (principal); I50.33 Acute on chronic diastolic (congestive) heart failure; D64.9 Anemia, unspecified; D51.9 Vitamin B12 deficiency anemia, unspecified; E55.9 Vitamin D deficiency, unspecified
CPT/HCPCS: 36415; 80053; 83735; 85025; 96365; 96366; 96372; G0463; J1885; J1940

== ENCOUNTER → 2018-01-19 | Outpatient (CLI) | payer MEDICARE, OTHER ==
[~2018-01-19] MED LIST changes: +CYANOCOBALAMIN (B-12) 1000 MCG/1 ML VIAL IM ONE; -FUROSEMIDE 20 MG/2 ML VIAL ONE; -FUROSEMIDE 40 MG TAB ONE; -FUROSEMIDE 40 MG TAB PO SCH; -FUROSEMIDE 40 MG/4 ML VIAL ONE; +FUROSEMIDE INJECTION 10 ML ONE; +FUROSEMIDE INJECTION 100 MG in SODIUM CHL 0.9% 100 ML IV SCH; +KETOROLAC TROMETH 30 MG/ML 1ML VIAL IM ONE; +KETOROLAC TROMETH 30 MG/ML 1ML VIAL IV ONE; +POTASSIUM CHL 20 Meq TABLET PO ONE
[2018-01-19 10:40] VITALS: BP 97/50
[2018-01-19 11:30] VITALS: BP 88/32
[2018-01-19 12:30] VITALS: BP 102/37
[2018-01-19 13:00] VITALS: BP 101/32
[2018-01-19 13:30] VITALS: BP 112/59
== END | disposition home or self-care (01) ==
LOC: CHF HDHVI 09:18
PROVIDERS: ATTEND Internal Medicine Cardiovascular Disease
DX: I50.9 Heart failure, unspecified (principal); I70.0 Atherosclerosis of aorta; M41.87 Other forms of scoliosis, lumbosacral region; M46.07 Spinal enthesopathy, lumbosacral region
CPT/HCPCS: 72100; 96365; 96366; 96372; 96375; G0463; J1885

== ENCOUNTER → 2018-02-04 | Outpatient (CLI) | payer MEDICARE, OTHER ==
[~2018-02-04] MED LIST changes: +BUMETANIDE (0.25MG/ML) 4 ML VIAL IV ONE; +BUMETANIDE (0.25MG/ML) 4 ML VIAL ONE; -CYANOCOBALAMIN (B-12) 1000 MCG/1 ML VIAL IM ONE; -FUROSEMIDE INJECTION 10 ML ONE; -FUROSEMIDE INJECTION 100 MG in SODIUM CHL 0.9% 100 ML IV SCH; -ISOS30TA4 PO; -KETOROLAC TROMETH 30 MG/ML 1ML VIAL IM ONE; -KETOROLAC TROMETH 30 MG/ML 1ML VIAL IV ONE; -KETOROLAC TROMETH 60MG/2ML VIAL IM ONE; -NITR0.4S29 SL; -TELM80TA PO
[2018-02-04 10:50] VITALS: BP 121/52
[2018-02-04 12:28] LABS: BUN/Creatinine Ratio 31.1; Calcium 9.1 mg/dL (8.5-10.1); Potassium 4.8 mmol/L (3.5-5.1)
== END | disposition home or self-care (01) ==
LOC: CHF HDHVI 09:28
PROVIDERS: ATTEND Internal Medicine Cardiovascular Disease
DX: E70.0 Classical phenylketonuria (principal); I11.0 Hypertensive heart disease with heart failure; I50.23 Acute on chronic systolic (congestive) heart failure; I25.10 Atherosclerotic heart disease of native coronary artery without angina pectoris
CPT/HCPCS: 36415; 80048; 96374; G0463

== ENCOUNTER → 2018-02-10 | Outpatient (CLI) | payer MEDICARE, OTHER ==
[~2018-02-10] MED LIST changes: -BUMETANIDE (0.25MG/ML) 4 ML VIAL ONE; +BUMETANIDE INJECTION 10 ML ONE; -POTASSIUM CHL 10 Meq TABLET PO ONE; -POTASSIUM CHL 20 Meq TABLET PO ONE
[2018-02-10 09:55] VITALS: BP 129/40
[2018-02-10 12:00] VITALS: BP 112/43
[2018-02-10 12:08] LABS: Basophils # (auto) 0.1 uL; Basophils % (auto) 0.7 % (0.0-2.0); Eosinophils # (auto) 0.2 uL; Eosinophils % (auto) 2.4 % (0.0-7.0); Hematocrit 34.8 % (36.0-46.0); Hemoglobin 11.7 g/dL (12.2-16.2); Lymphocytes # (auto) 1.1 uL; Lymphocytes % (auto) 15.5 % (10.0-50.0); Mean Corpuscular Hemoglobin 30.6 pg (28.0-32.0); Mean Corpuscular Hgb Conc. 33.6 g/dL (32.0-36.0); Mean Corpuscular Volume 91.1 fL (80.0-100.0); Monocytes # (auto) 0.7 uL; Monocytes % (auto) 9.4 % (0.0-12.0); Neutrophils # (auto) 5.3 uL; Nucleated Red Blood Cells % 0.1 %; Platelet Count (auto) 260 10^3/uL (140-450); Red Blood Cells 3.82 10^6/uL (4.0-5.20); Red Cell Distribution Width 14.1 % (11.8-14.3); White Blood Cell 7.4 10^3/uL (4.4-10.8)
[2018-02-10 12:30] LABS: Albumin 3.7 g/dL (3.4-5.0); BUN/Creatinine Ratio 27.8; Bilirubin, Total 0.6 mg/dL (0.2-1.0); Calcium 9.2 mg/dL (8.5-10.1); Potassium 4.3 mmol/L (3.5-5.1); Total Protein 7.6 g/dL (6.4-8.2)
== END | disposition home or self-care (01) ==
LOC: CHF HDHVI 10:03
PROVIDERS: ATTEND Internal Medicine Cardiovascular Disease
DX: I13.0 Hypertensive heart and chronic kidney disease with heart failure and stage 1 through stage 4 chronic kidney disease, or unspecified chronic kidney disease (principal); N18.3 Chronic kidney disease, stage 3 (moderate); I50.43 Acute on chronic combined systolic (congestive) and diastolic (congestive) heart failure; D64.9 Anemia, unspecified; I25.10 Atherosclerotic heart disease of native coronary artery without angina pectoris; M81.0 Age-related osteoporosis without current pathological fracture; G89.29 Other chronic pain; M48.50XA Collapsed vertebra, not elsewhere classified, site unspecified, initial encounter for fracture; M54.9 Dorsalgia, unspecified; R60.9 Edema, unspecified; Z95.1 Presence of aortocoronary bypass graft; Z98.61 Coronary angioplasty status; Z68.23 Body mass index [BMI] 23.0-23.9, adult
CPT/HCPCS: 36415; 80053; 85025; 93701; 96374; G0463

== ENCOUNTER → 2018-02-17 | Outpatient (CLI) | payer MEDICARE, OTHER ==
[~2018-02-17] VITALS: Ht 30.5 cm; Wt 58.5 kg
[~2018-02-17] MED LIST changes: -BUMETANIDE (0.25MG/ML) 4 ML VIAL IV ONE; -BUMETANIDE INJECTION 10 ML ONE; +FUROSEMIDE 100 MG/10ML VIAL IV ONE; +FUROSEMIDE INJECTION 10 ML ONE; +POTASSIUM CHL 10 Meq TABLET PO ONE; +POTASSIUM CHL 20 Meq TABLET PO ONE; +SODIUM CHLORIDE 0.9% 1,000 ML IV SCH
[2018-02-17 10:15] VITALS: BP 123/41
[2018-02-17 10:30] VITALS: BP 116/69
[2018-02-17 10:45] VITALS: BP 117/69
[2018-02-17 11:00] VITALS: BP 107/37
[2018-02-17 11:30] VITALS: BP 109/36
[2018-02-17 12:12] LABS: Potassium 4.4 mmol/L (3.5-5.1)
[2018-02-17 13:15] VITALS: BP 113/38
== END | disposition home or self-care (01) ==
LOC: CHF HDHVI 09:27
PROVIDERS: ATTEND Internal Medicine Cardiovascular Disease
DX: I13.0 Hypertensive heart and chronic kidney disease with heart failure and stage 1 through stage 4 chronic kidney disease, or unspecified chronic kidney disease (principal); N18.3 Chronic kidney disease, stage 3 (moderate); I50.43 Acute on chronic combined systolic (congestive) and diastolic (congestive) heart failure; E87.70 Fluid overload, unspecified; F41.9 Anxiety disorder, unspecified; I25.10 Atherosclerotic heart disease of native coronary artery without angina pectoris; J44.9 Chronic obstructive pulmonary disease, unspecified; E78.5 Hyperlipidemia, unspecified; I25.2 Old myocardial infarction; E78.00 Pure hypercholesterolemia, unspecified; M48.02 Spinal stenosis, cervical region; G89.29 Other chronic pain; Z79.899 Other long term (current) drug therapy; Z98.61 Coronary angioplasty status; Z95.1 Presence of aortocoronary bypass graft; Z86.73 Personal history of transient ischemic attack (TIA), and cerebral infarction without residual deficits; Z79.01 Long term (current) use of anticoagulants; Z68.23 Body mass index [BMI] 23.0-23.9, adult
CPT/HCPCS: 36415; 82565; 84132; 84520; 96365; 96366; G0463; J1940; J7030

== ENCOUNTER → 2018-02-22 | Outpatient (CLI) | payer MEDICARE, OTHER ==
[2018-02-22] VITALS (7 sets, daily range): BP systolic 102–127; BP diastolic 36–59
[~2018-02-22] MED LIST changes: -FUROSEMIDE 100 MG/10ML VIAL IV ONE; +FUROSEMIDE 40 MG/4 ML VIAL IV ONE; +FUROSEMIDE INJECTION 100 MG in SODIUM CHL 0.9% 100 ML IV SCH; +KETOROLAC TROMETH 60MG/2ML VIAL IM ONE; -SODIUM CHLORIDE 0.9% 1,000 ML IV SCH
[2018-02-22 12:13] LABS: Potassium 4.1 mmol/L (3.5-5.1)
== END | disposition home or self-care (01) ==
LOC: CHF HDHVI 09:29
PROVIDERS: ATTEND Internal Medicine Cardiovascular Disease
DX: I13.0 Hypertensive heart and chronic kidney disease with heart failure and stage 1 through stage 4 chronic kidney disease, or unspecified chronic kidney disease (principal); I50.23 Acute on chronic systolic (congestive) heart failure; N18.3 Chronic kidney disease, stage 3 (moderate); I25.10 Atherosclerotic heart disease of native coronary artery without angina pectoris; D51.9 Vitamin B12 deficiency anemia, unspecified; J44.9 Chronic obstructive pulmonary disease, unspecified; E87.70 Fluid overload, unspecified; R60.0 Localized edema; E78.5 Hyperlipidemia, unspecified; E78.00 Pure hypercholesterolemia, unspecified; Z79.01 Long term (current) use of anticoagulants; Z98.61 Coronary angioplasty status; Z95.1 Presence of aortocoronary bypass graft
CPT/HCPCS: 36415; 82565; 84132; 84520; 96365; 96366; 96372; 96376; G0463; J1885; J1940; 96367; 96374; 96375

== ENCOUNTER → 2018-02-25 | Outpatient (CLI) | payer MEDICARE, OTHER ==
[~2018-02-25] MED LIST changes: +CYANOCOBALAMIN (B-12) 1000 MCG/1 ML VIAL IM ONE; +CYANOCOBALAMIN (B-12) 1000 MCG/1 ML VIAL ONE; +FUROSEMIDE 100 MG/10ML VIAL IV ONE; -FUROSEMIDE 40 MG/4 ML VIAL IV ONE; -FUROSEMIDE INJECTION 100 MG in SODIUM CHL 0.9% 100 ML IV SCH; +SODIUM CHLORIDE 0.9% 1,000 ML IV SCH; +cefTRIAXone 1GM/10ml IVPUSH 10 ML IV ONE; +cefTRIAXone 1GM/10ml IVPUSH 10 ML IV SCH
[2018-02-25 12:00] VITALS: BP 137/50
== END | disposition home or self-care (01) ==
LOC: CHF HDHVI 09:03
PROVIDERS: ATTEND Internal Medicine Cardiovascular Disease
DX: I13.0 Hypertensive heart and chronic kidney disease with heart failure and stage 1 through stage 4 chronic kidney disease, or unspecified chronic kidney disease (principal); N18.3 Chronic kidney disease, stage 3 (moderate); I50.43 Acute on chronic combined systolic (congestive) and diastolic (congestive) heart failure; D51.9 Vitamin B12 deficiency anemia, unspecified; I25.10 Atherosclerotic heart disease of native coronary artery without angina pectoris; E78.5 Hyperlipidemia, unspecified; F41.9 Anxiety disorder, unspecified; J44.9 Chronic obstructive pulmonary disease, unspecified; I25.2 Old myocardial infarction; G89.29 Other chronic pain; M48.02 Spinal stenosis, cervical region; E78.00 Pure hypercholesterolemia, unspecified; Z79.01 Long term (current) use of anticoagulants; Z95.1 Presence of aortocoronary bypass graft; Z98.61 Coronary angioplasty status; Z68.23 Body mass index [BMI] 23.0-23.9, adult; Z79.899 Other long term (current) drug therapy; Z86.73 Personal history of transient ischemic attack (TIA), and cerebral infarction without residual deficits
CPT/HCPCS: 96365; 96366; 96368; 96372; 96376; G0463; J1885; J1940; J3420; 96367

== ENCOUNTER → 2018-03-01 | Outpatient (CLI) | payer MEDICARE, OTHER ==
[~2018-03-01] VITALS: Ht 30.5 cm; Wt 59.0 kg
[~2018-03-01] MED LIST changes: -CYANOCOBALAMIN (B-12) 1000 MCG/1 ML VIAL IM ONE; -CYANOCOBALAMIN (B-12) 1000 MCG/1 ML VIAL ONE; -FUROSEMIDE 100 MG/10ML VIAL IV ONE; +FUROSEMIDE INJECTION 100 MG in SODIUM CHL 0.9% 100 ML IV SCH; -SODIUM CHLORIDE 0.9% 1,000 ML IV SCH; -cefTRIAXone 1GM/10ml IVPUSH 10 ML IV ONE; -cefTRIAXone 1GM/10ml IVPUSH 10 ML IV SCH
[2018-03-01 10:00] VITALS: BP 121/37
[2018-03-01 10:30] VITALS: BP 114/33
[2018-03-01 11:00] VITALS: BP 136/38
[2018-03-01 11:30] VITALS: BP 125/40
[2018-03-01 12:26] LABS: Basophils # (auto) 0.1 uL; Basophils % (auto) 1.2 % (0.0-2.0); Eosinophils # (auto) 0.2 uL; Eosinophils % (auto) 3.2 % (0.0-7.0); Hematocrit 34.9 % (36.0-46.0); Hemoglobin 11.5 g/dL (12.2-16.2); Lymphocytes # (auto) 1.2 uL; Lymphocytes % (auto) 16.5 % (10.0-50.0); Mean Corpuscular Hemoglobin 30.7 pg (28.0-32.0); Mean Corpuscular Hgb Conc. 32.9 g/dL (32.0-36.0); Mean Corpuscular Volume 93.3 fL (80.0-100.0); Monocytes % (auto) 12.8 % (0.0-12.0); Neutrophils % (auto) 66.3 % (37.0-80.0); Nucleated Red Blood Cells % 0.2 %; Platelet Count (auto) 222 10^3/uL (140-450); Red Blood Cells 3.74 10^6/uL (4.0-5.20); Red Cell Distribution Width 14.7 % (11.8-14.3); White Blood Cell 7.5 10^3/uL (4.4-10.8)
[2018-03-01 12:38] LABS: Potassium 4.3 mmol/L (3.5-5.1)
[2018-03-01 12:40] VITALS: BP 113/35
== END | disposition home or self-care (01) ==
LOC: CHF HDHVI 09:37
PROVIDERS: ATTEND Internal Medicine Cardiovascular Disease
DX: I13.0 Hypertensive heart and chronic kidney disease with heart failure and stage 1 through stage 4 chronic kidney disease, or unspecified chronic kidney disease (principal); N18.3 Chronic kidney disease, stage 3 (moderate); I50.43 Acute on chronic combined systolic (congestive) and diastolic (congestive) heart failure; D64.9 Anemia, unspecified; I25.10 Atherosclerotic heart disease of native coronary artery without angina pectoris; G89.29 Other chronic pain; I27.21 Secondary pulmonary arterial hypertension; R60.9 Edema, unspecified; M76.61 Achilles tendinitis, right leg; M19.071 Primary osteoarthritis, right ankle and foot; I25.2 Old myocardial infarction; E78.5 Hyperlipidemia, unspecified; J44.9 Chronic obstructive pulmonary disease, unspecified; F41.9 Anxiety disorder, unspecified; E78.00 Pure hypercholesterolemia, unspecified; M48.02 Spinal stenosis, cervical region; Z95.1 Presence of aortocoronary bypass graft; Z98.61 Coronary angioplasty status; Z86.73 Personal history of transient ischemic attack (TIA), and cerebral infarction without residual deficits; Z79.01 Long term (current) use of anticoagulants; Z79.899 Other long term (current) drug therapy; Z68.23 Body mass index [BMI] 23.0-23.9, adult
CPT/HCPCS: 36415; 73610; 73630; 82565; 84132; 84520; 85025; 96365; 96366; G0463; J1885; J1940; J7040; 96372

== ENCOUNTER → 2018-03-02 | Outpatient (CLI) | payer MEDICARE, OTHER ==
[~2018-03-02] MED LIST changes: -FUROSEMIDE INJECTION 10 ML ONE; -FUROSEMIDE INJECTION 100 MG in SODIUM CHL 0.9% 100 ML IV SCH; -KETOROLAC TROMETH 60MG/2ML VIAL IM ONE; -POTASSIUM CHL 10 Meq TABLET PO ONE; -POTASSIUM CHL 20 Meq TABLET PO ONE
[2018-03-02 12:00] VITALS: BP 133/37
[2018-03-02 12:30] VITALS: BP 130/40
== END | disposition home or self-care (01) ==
LOC: Rad HDHVI 11:07
PROVIDERS: ATTEND Internal Medicine Cardiovascular Disease
DX: I82.402 Acute embolism and thrombosis of unspecified deep veins of left lower extremity (principal); I27.21 Secondary pulmonary arterial hypertension; I25.10 Atherosclerotic heart disease of native coronary artery without angina pectoris; I13.0 Hypertensive heart and chronic kidney disease with heart failure and stage 1 through stage 4 chronic kidney disease, or unspecified chronic kidney disease; N18.3 Chronic kidney disease, stage 3 (moderate); I50.9 Heart failure, unspecified; Z79.01 Long term (current) use of anticoagulants; Z79.899 Other long term (current) drug therapy
CPT/HCPCS: 93970; G0463

== ENCOUNTER → 2018-03-04 | Outpatient (CLI) | payer MEDICARE, OTHER ==
[~2018-03-04] MED LIST changes: +BUMETANIDE (0.25MG/ML) 4 ML VIAL IV ONE; +BUMETANIDE INJECTION 10 ML ONE; +POTASSIUM CHL 20 Meq TABLET PO ONE
[2018-03-04 08:45] VITALS: BP 133/52
[2018-03-04 11:33] VITALS: BP 115/35
== END | disposition home or self-care (01) ==
LOC: CHF HDHVI 08:30
PROVIDERS: ATTEND Internal Medicine Cardiovascular Disease
DX: I27.21 Secondary pulmonary arterial hypertension (principal); R60.9 Edema, unspecified; I25.10 Atherosclerotic heart disease of native coronary artery without angina pectoris; I13.0 Hypertensive heart and chronic kidney disease with heart failure and stage 1 through stage 4 chronic kidney disease, or unspecified chronic kidney disease; N18.3 Chronic kidney disease, stage 3 (moderate); I50.43 Acute on chronic combined systolic (congestive) and diastolic (congestive) heart failure; J44.9 Chronic obstructive pulmonary disease, unspecified; E78.5 Hyperlipidemia, unspecified; I25.2 Old myocardial infarction; M19.071 Primary osteoarthritis, right ankle and foot; E78.00 Pure hypercholesterolemia, unspecified; Z98.61 Coronary angioplasty status; Z79.01 Long term (current) use of anticoagulants
CPT/HCPCS: 96374; G0463

== ENCOUNTER → 2018-03-11 | Outpatient (CLI) | payer MEDICARE, OTHER ==
[2018-03-11 08:45] VITALS: BP 122/39
[2018-03-11 10:30] VITALS: BP 128/56
[2018-03-11 12:01] LABS: Basophils # (auto) 0.1 uL; Basophils % (auto) 1.6 % (0.0-2.0); Eosinophils # (auto) 0.2 uL; Eosinophils % (auto) 2.6 % (0.0-7.0); Hematocrit 35.5 % (36.0-46.0); Hemoglobin 11.7 g/dL (12.2-16.2); Lymphocytes # (auto) 1.2 uL; Mean Corpuscular Hemoglobin 30.5 pg (28.0-32.0); Mean Corpuscular Hgb Conc. 32.9 g/dL (32.0-36.0); Mean Corpuscular Volume 92.6 fL (80.0-100.0); Monocytes # (auto) 0.6 uL; Monocytes % (auto) 8.9 % (0.0-12.0); Neutrophils # (auto) 4.9 uL; Neutrophils % (auto) 69.9 % (37.0-80.0); Nucleated Red Blood Cells % 0.4 %; Platelet Count (auto) 211 10^3/uL (140-450); Red Blood Cells 3.84 10^6/uL (4.0-5.20); Red Cell Distribution Width 14.4 % (11.8-14.3)
[2018-03-11 12:14] LABS: BUN/Creatinine Ratio 20.1; Calcium 8.8 mg/dL (8.5-10.1); Magnesium 3.2 mg/dL (1.6-2.6)
== END | disposition home or self-care (01) ==
LOC: CHF HDHVI 08:24
PROVIDERS: ATTEND Internal Medicine Cardiovascular Disease
DX: I13.0 Hypertensive heart and chronic kidney disease with heart failure and stage 1 through stage 4 chronic kidney disease, or unspecified chronic kidney disease (principal); I50.43 Acute on chronic combined systolic (congestive) and diastolic (congestive) heart failure; N18.3 Chronic kidney disease, stage 3 (moderate); D64.9 Anemia, unspecified; I25.10 Atherosclerotic heart disease of native coronary artery without angina pectoris; J44.9 Chronic obstructive pulmonary disease, unspecified; E78.5 Hyperlipidemia, unspecified; I25.2 Old myocardial infarction; E78.00 Pure hypercholesterolemia, unspecified; Z79.01 Long term (current) use of anticoagulants; Z98.61 Coronary angioplasty status; Z79.899 Other long term (current) drug therapy; Z68.23 Body mass index [BMI] 23.0-23.9, adult; Z95.1 Presence of aortocoronary bypass graft; Z86.73 Personal history of transient ischemic attack (TIA), and cerebral infarction without residual deficits
CPT/HCPCS: 36415; 80048; 83735; 85025; 96374; G0463

== ENCOUNTER → 2018-03-18 | Outpatient (CLI) | payer MEDICARE, OTHER ==
[~2018-03-18] VITALS: Ht 30.5 cm; Wt 56.7 kg
[~2018-03-18] MED LIST changes: +CYANOCOBALAMIN (B-12) 1000 MCG/1 ML VIAL IM ONE; +CYANOCOBALAMIN (B-12) 1000 MCG/1 ML VIAL ONE; +POTASSIUM CHL 10 Meq TABLET PO ONE
[2018-03-18 09:20] VITALS: BP 124/47
[2018-03-18 10:00] VITALS: BP 138/47
== END | disposition home or self-care (01) ==
LOC: CHF HDHVI 09:17
PROVIDERS: ATTEND Internal Medicine Cardiovascular Disease
DX: I13.0 Hypertensive heart and chronic kidney disease with heart failure and stage 1 through stage 4 chronic kidney disease, or unspecified chronic kidney disease (principal); I50.43 Acute on chronic combined systolic (congestive) and diastolic (congestive) heart failure; N18.3 Chronic kidney disease, stage 3 (moderate); E87.70 Fluid overload, unspecified; I27.0 Primary pulmonary hypertension; R53.83 Other fatigue; I25.10 Atherosclerotic heart disease of native coronary artery without angina pectoris; J44.9 Chronic obstructive pulmonary disease, unspecified; E78.5 Hyperlipidemia, unspecified; Z79.01 Long term (current) use of anticoagulants; I25.2 Old myocardial infarction; E78.00 Pure hypercholesterolemia, unspecified; M17.11 Unilateral primary osteoarthritis, right knee; D51.9 Vitamin B12 deficiency anemia, unspecified; M81.0 Age-related osteoporosis without current pathological fracture; Z68.23 Body mass index [BMI] 23.0-23.9, adult; Z95.1 Presence of aortocoronary bypass graft; Z98.61 Coronary angioplasty status
CPT/HCPCS: 96372; 96374; G0463; J3420

== ENCOUNTER → 2018-03-25 | Outpatient (CLI) | payer MEDICARE, OTHER ==
[~2018-03-25] VITALS: Ht 30.5 cm; Wt 57.3 kg
[~2018-03-25] MED LIST changes: -CYANOCOBALAMIN (B-12) 1000 MCG/1 ML VIAL IM ONE; -CYANOCOBALAMIN (B-12) 1000 MCG/1 ML VIAL ONE; -POTASSIUM CHL 10 Meq TABLET PO ONE
[2018-03-25 09:05] VITALS: BP 125/43
[2018-03-25 10:25] VITALS: BP 124/45
[2018-03-25 11:58] LABS: Basophils # (auto) 0.1 uL; Basophils % (auto) 1.2 % (0.0-2.0); Eosinophils # (auto) 0.2 uL; Eosinophils % (auto) 3.3 % (0.0-7.0); Hematocrit 37.2 % (36.0-46.0); Lymphocytes # (auto) 1.2 uL; Lymphocytes % (auto) 19.3 % (10.0-50.0); Mean Corpuscular Hemoglobin 30.5 pg (28.0-32.0); Mean Corpuscular Hgb Conc. 32.4 g/dL (32.0-36.0); Mean Corpuscular Volume 94.2 fL (80.0-100.0); Monocytes # (auto) 0.8 uL; Monocytes % (auto) 12.3 % (0.0-12.0); Neutrophils % (auto) 63.9 % (37.0-80.0); Nucleated Red Blood Cells % 0.1 %; Platelet Count (auto) 172 10^3/uL (140-450); Red Blood Cells 3.94 10^6/uL (4.0-5.20); Red Cell Distribution Width 14.6 % (11.8-14.3); White Blood Cell 6.3 10^3/uL (4.4-10.8)
[2018-03-25 12:13] LABS: Albumin 3.9 g/dL (3.4-5.0); Bilirubin, Total 0.5 mg/dL (0.2-1.0); Magnesium 3.1 mg/dL (1.6-2.6); Potassium 4.2 mmol/L (3.5-5.1); Total Protein 7.6 g/dL (6.4-8.2)
== END | disposition home or self-care (01) ==
LOC: CHF HDHVI 09:10
PROVIDERS: ATTEND Internal Medicine Cardiovascular Disease
DX: I25.10 Atherosclerotic heart disease of native coronary artery without angina pectoris (principal); I50.43 Acute on chronic combined systolic (congestive) and diastolic (congestive) heart failure; I13.0 Hypertensive heart and chronic kidney disease with heart failure and stage 1 through stage 4 chronic kidney disease, or unspecified chronic kidney disease; N18.3 Chronic kidney disease, stage 3 (moderate); I25.2 Old myocardial infarction; J44.9 Chronic obstructive pulmonary disease, unspecified; D64.9 Anemia, unspecified; R70.0 Elevated erythrocyte sedimentation rate; E78.5 Hyperlipidemia, unspecified; M81.0 Age-related osteoporosis without current pathological fracture; M17.11 Unilateral primary osteoarthritis, right knee; E78.00 Pure hypercholesterolemia, unspecified; E03.9 Hypothyroidism, unspecified; Z79.01 Long term (current) use of anticoagulants; Z79.899 Other long term (current) drug therapy; Z68.23 Body mass index [BMI] 23.0-23.9, adult; Z95.1 Presence of aortocoronary bypass graft; Z86.73 Personal history of transient ischemic attack (TIA), and cerebral infarction without residual deficits
CPT/HCPCS: 36415; 80053; 83735; 85025; 85652; 93701; 96374; G0463

== ENCOUNTER → 2018-04-01 | Outpatient (CLI) | payer MEDICARE, OTHER ==
[~2018-04-01] MED LIST changes: +BUMETANIDE (0.25MG/ML) 4 ML VIAL ONE; -BUMETANIDE INJECTION 10 ML ONE; +KETOROLAC TROMETH 60MG/2ML VIAL IM ONE
[2018-04-01 10:00] VITALS: BP 130/46
[2018-04-01 11:03] VITALS: BP 102/33
[2018-04-01 11:59] LABS: Basophils # (auto) 0.1 uL; Basophils % (auto) 1.3 % (0.0-2.0); Eosinophils # (auto) 0.1 uL; Eosinophils % (auto) 2.4 % (0.0-7.0); Hematocrit 35.9 % (36.0-46.0); Hemoglobin 11.9 g/dL (12.2-16.2); Lymphocytes % (auto) 17.7 % (10.0-50.0); Mean Corpuscular Hemoglobin 30.5 pg (28.0-32.0); Mean Corpuscular Volume 92.3 fL (80.0-100.0); Monocytes # (auto) 0.7 uL; Neutrophils # (auto) 3.7 uL; Neutrophils % (auto) 65.6 % (37.0-80.0); Nucleated Red Blood Cells % 0.2 %; Platelet Count (auto) 171 10^3/uL (140-450); Red Blood Cells 3.89 10^6/uL (4.0-5.20); Red Cell Distribution Width 14.5 % (11.8-14.3); White Blood Cell 5.6 10^3/uL (4.4-10.8)
[2018-04-01 12:16] LABS: Albumin 3.8 g/dL (3.4-5.0); BUN/Creatinine Ratio 20.7; Bilirubin, Total 0.6 mg/dL (0.2-1.0); Calcium 8.9 mg/dL (8.5-10.1); Potassium 4.4 mmol/L (3.5-5.1); Total Protein 7.5 g/dL (6.4-8.2)
== END | disposition home or self-care (01) ==
LOC: CHF HDHVI 09:24
PROVIDERS: ATTEND Internal Medicine Cardiovascular Disease
DX: I13.0 Hypertensive heart and chronic kidney disease with heart failure and stage 1 through stage 4 chronic kidney disease, or unspecified chronic kidney disease (principal); I50.43 Acute on chronic combined systolic (congestive) and diastolic (congestive) heart failure; N18.3 Chronic kidney disease, stage 3 (moderate); D51.9 Vitamin B12 deficiency anemia, unspecified; E03.9 Hypothyroidism, unspecified; I25.10 Atherosclerotic heart disease of native coronary artery without angina pectoris; J44.9 Chronic obstructive pulmonary disease, unspecified; E78.5 Hyperlipidemia, unspecified; E87.70 Fluid overload, unspecified; I25.2 Old myocardial infarction; R53.83 Other fatigue; E78.00 Pure hypercholesterolemia, unspecified; I27.21 Secondary pulmonary arterial hypertension; M19.071 Primary osteoarthritis, right ankle and foot; F41.9 Anxiety disorder, unspecified; M10.9 Gout, unspecified; Z79.899 Other long term (current) drug therapy; Z95.1 Presence of aortocoronary bypass graft; Z68.23 Body mass index [BMI] 23.0-23.9, adult; Z79.01 Long term (current) use of anticoagulants; Z98.61 Coronary angioplasty status
CPT/HCPCS: 36415; 80053; 84443; 85025; 96372; 96374; G0463; J1885

== ENCOUNTER → 2018-04-29 | Outpatient (CLI) | payer MEDICARE, OTHER ==
[~2018-04-29] VITALS: Ht 1 cm; Wt 0.5 kg
[~2018-04-29] MED LIST changes: +ACETAMINOPHEN 325 MG TAB PO ONE; +ACETAMINOPHEN 500 MG TAB PO ONE; +ASPirin 81 mg TAB ONE; +ASPirin 81 mg TAB PO ONE; +KETOROLAC TROMETH 30 MG/ML 1ML VIAL IV ONE; +LEVO125T66 PO; +LOSA25TA8 PO; +MAGNESIUM CITRATE SOLUTION 300 ML BTL ONE; +MAGNESIUM CITRATE SOLUTION 300 ML BTL PO ONE; +POTA20TA53 PO; -POTASSIUM CHL 20 Meq TABLET PO ONE; +TORS20TA20 PO
[2018-04-29 10:00] VITALS: BP 125/57
[2018-04-29 12:29] VITALS: BP 109/36
[2018-04-29 16:10] LABS: Potassium 4.6 mmol/L (3.5-5.1)
[2018-04-29 16:15] LABS: Albumin 3.7 g/dL (3.4-5.0); BUN/Creatinine Ratio 22.2; Calcium 8.6 mg/dL (8.5-10.1); Magnesium 3.4 mg/dL (1.6-2.6)
[2018-04-29 16:18] LABS: Bilirubin, Total 0.6 mg/dL (0.2-1.0); Total Protein 7.6 g/dL (6.4-8.2)
[2018-04-29 16:22] LABS: Basophils # (auto) 0.1 uL; Eosinophils # (auto) 0.1 uL; Eosinophils % (auto) 0.7 % (0.0-7.0); Hemoglobin 11.7 g/dL (12.2-16.2); Lymphocytes # (auto) 0.8 uL; Lymphocytes % (auto) 10.5 % (10.0-50.0); Mean Corpuscular Hemoglobin 30.8 pg (28.0-32.0); Mean Corpuscular Hgb Conc. 33.4 g/dL (32.0-36.0); Mean Corpuscular Volume 92.4 fL (80.0-100.0); Monocytes % (auto) 13.3 % (0.0-12.0); Neutrophils # (auto) 5.7 uL; Neutrophils % (auto) 74.5 % (37.0-80.0); Nucleated Red Blood Cells % 0.2 %; Platelet Count (auto) 194 10^3/uL (140-450); Red Blood Cells 3.78 10^6/uL (4.0-5.20); Red Cell Distribution Width 14.1 % (11.8-14.3); White Blood Cell 7.6 10^3/uL (4.4-10.8)
== END | disposition home or self-care (01) ==
LOC: CHF HDHVI 10:12
PROVIDERS: ATTEND Internal Medicine Cardiovascular Disease
DX: I70.0 Atherosclerosis of aorta (principal); D51.9 Vitamin B12 deficiency anemia, unspecified; E83.40 Disorders of magnesium metabolism, unspecified; R70.0 Elevated erythrocyte sedimentation rate; E51.9 Thiamine deficiency, unspecified; I13.0 Hypertensive heart and chronic kidney disease with heart failure and stage 1 through stage 4 chronic kidney disease, or unspecified chronic kidney disease; N18.3 Chronic kidney disease, stage 3 (moderate); I50.43 Acute on chronic combined systolic (congestive) and diastolic (congestive) heart failure; I27.21 Secondary pulmonary arterial hypertension; G89.29 Other chronic pain; I25.2 Old myocardial infarction; I25.10 Atherosclerotic heart disease of native coronary artery without angina pectoris; E78.5 Hyperlipidemia, unspecified; E78.00 Pure hypercholesterolemia, unspecified; E03.9 Hypothyroidism, unspecified; F41.9 Anxiety disorder, unspecified; Z79.82 Long term (current) use of aspirin; Z79.01 Long term (current) use of anticoagulants; Z95.5 Presence of coronary angioplasty implant and graft
CPT/HCPCS: 36415; 71046; 80053; 82306; 82607; 83735; 83880; 85025; 85652; J1885; 96372; 96374; 96375; G0463

== ENCOUNTER 2018-05-03 17:33 | Inpatient (IN) | payer MEDICARE, OTHER ==
[~2018-05-03] VITALS: Ht 165.1 cm; Wt 51.0 kg
[~2018-05-03 17:33] MED LIST changes: -LEVO125T66 PO; -LOSA25TA8 PO; -POTA20TA53 PO; -TORS20TA20 PO
[2018-05-03] MEDS ORDERED: NITROGLYCERIN 0.4 MG SL TAB SL PRN (18:15)
[2018-05-03] MEDS ORDERED: MORPHINE SULF INJ 2 MG/ML SYRINGE 1ML IV PRN (18:15)
[2018-05-03] MEDS ORDERED: MILRINONE 20MG/100ML 100 ML IV SCH (18:15)
[2018-05-03 19:51] VITALS: BP 120/49
[2018-05-03] MEDS: HYDROcodone-ACET 5/325MG TAB PO PRN (20:34)
[2018-05-03] MEDS: ADEMPAS 2 MG PO SCH (21:37)
[2018-05-03 21:57] LABS: Basophils # (auto) 0.1 uL; Basophils % (auto) 0.9 % (0.0-2.0); Eosinophils # (auto) 0.2 uL; Eosinophils % (auto) 2.3 % (0.0-7.0); Hemoglobin 11.1 g/dL (12.2-16.2); Lymphocytes # (auto) 1.1 uL; Lymphocytes % (auto) 14.4 % (10.0-50.0); Mean Corpuscular Hemoglobin 30.7 pg (28.0-32.0); Mean Corpuscular Hgb Conc. 33.6 g/dL (32.0-36.0); Mean Corpuscular Volume 91.4 fL (80.0-100.0); Monocytes # (auto) 0.9 uL; Monocytes % (auto) 12.1 % (0.0-12.0); Neutrophils # (auto) 5.2 uL; Neutrophils % (auto) 70.3 % (37.0-80.0); Platelet Count (auto) 203 10^3/uL (140-450); Red Blood Cells 3.61 10^6/uL (4.0-5.20); Red Cell Distribution Width 14.3 % (11.8-14.3); White Blood Cell 7.4 10^3/uL (4.4-10.8)
[2018-05-03 22:00] VITALS: BP 107/47
[2018-05-03] MEDS ORDERED: LACTULOSE 20Gm/30ML SOLN PO ONE (22:00)
[2018-05-03] MEDS: MILRINONE 20MG/100ML 100 ML IV SCH (22:04)
[2018-05-03] MEDS: FUROSEMIDE INJECTION 250 MG in SODIUM CHL 0.9% 225 ML IV SCH (22:04)
[2018-05-03 22:14] LABS: BUN/Creatinine Ratio 21.8; Calcium 7.9 mg/dL (8.5-10.1); Magnesium 3.2 mg/dL (1.6-2.6); Potassium 4.1 mmol/L (3.5-5.1)
[2018-05-03 22:16] LABS: Bilirubin, Total 0.3 mg/dL (0.2-1.0); Total Protein 6.6 g/dL (6.4-8.2)
[2018-05-03] MEDS ORDERED: POTA20TA53 PO (23:32)
[2018-05-03] MEDS ORDERED: TORS20TA20 PO (23:32)
[2018-05-03] MEDS ORDERED: LOSA25TA8 PO (23:32)
[2018-05-03] MEDS ORDERED: LEVO125T66 PO (23:32)
[2018-05-04 05:00] VITALS: BP 125/52
[2018-05-04] MEDS: ADEMPAS 2 MG PO SCH ×3 (05:49→20:05)
[2018-05-04] MEDS: HYDROcodone-ACET 5/325MG TAB PO PRN ×4 (05:50→23:07)
[2018-05-04] MEDS: LEVOTHYROXINE SODIUM 50 MCG TAB PO SCH (05:50)
[2018-05-04 09:00] VITALS: BP 109/47
[2018-05-04] MEDS: ASPirin 81 mg TAB PO SCH (09:37)
[2018-05-04] MEDS: CLOPIDOGREL BISULFATE 75 MG TAB PO SCH (09:37)
[2018-05-04] MEDS: fentaNYL 50MCG/HR 50 MCG/HR PAT TD SCH (09:39)
[2018-05-04] MEDS: DEXILANT 60MG PO SCH (09:40)
[2018-05-04 11:56] VITALS: BP 127/60
[2018-05-04] MEDS: MILRINONE 20MG/100ML 100 ML IV SCH (12:37)
[2018-05-04 17:00] VITALS: BP 127/53
[2018-05-04] MEDS: POTASSIUM CHL 20 Meq TABLET PO SCH (19:56)
[2018-05-04] MEDS: FUROSEMIDE INJECTION 250 MG in SODIUM CHL 0.9% 225 ML IV SCH (19:56)
[2018-05-04 22:00] VITALS: BP 113/55
[2018-05-04] MEDS ORDERED: FAMOTIDINE 20 MG TAB PO SCH (22:00)
[2018-05-05 04:52] VITALS: BP 120/60
[2018-05-05] MEDS: MILRINONE 20MG/100ML 100 ML IV SCH ×2 (05:07→21:05)
[2018-05-05] MEDS: ADEMPAS 2 MG PO SCH ×3 (05:34→21:05)
[2018-05-05] MEDS: LEVOTHYROXINE SODIUM 50 MCG TAB PO SCH (05:34)
[2018-05-05] MEDS: POTASSIUM CHL 20 Meq TABLET PO SCH ×3 (05:34→21:05)
[2018-05-05 07:20] LABS: Albumin 3.2 g/dL (3.4-5.0); BUN/Creatinine Ratio 15.4; Bilirubin, Total 0.5 mg/dL (0.2-1.0); Calcium 7.8 mg/dL (8.5-10.1); Total Protein 7.1 g/dL (6.4-8.2)
[2018-05-05 07:48] LABS: Potassium 2.5 mmol/L (3.5-5.1)
[2018-05-05 08:00] VITALS: BP 127/53
[2018-05-05 08:30] VITALS: BP 114/58
[2018-05-05] MEDS: CLOPIDOGREL BISULFATE 75 MG TAB PO SCH (08:34)
[2018-05-05] MEDS: FAMOTIDINE 20 MG TAB PO SCH (08:34)
[2018-05-05] MEDS: POTASSIUM CHL 20MEQ/100ML 100 ML IV SCH ×3 (08:34→12:57)
[2018-05-05] MEDS: ASPirin 81 mg TAB PO SCH (08:34)
[2018-05-05] MEDS: HYDROcodone-ACET 5/325MG TAB PO PRN ×2 (08:38→20:19)
[2018-05-05] MEDS: DEXILANT 60MG PO SCH (10:00)
[2018-05-05 12:30] VITALS: BP 111/59
[2018-05-05 14:00] LABS: Albumin 3.3 g/dL (3.4-5.0); BUN/Creatinine Ratio 14.8; Bilirubin, Total 0.5 mg/dL (0.2-1.0); Calcium 8.1 mg/dL (8.5-10.1); Potassium 3.1 mmol/L (3.5-5.1); Total Protein 7.3 g/dL (6.4-8.2)
[2018-05-05 16:40] VITALS: BP 119/56
[2018-05-05] MEDS: FUROSEMIDE INJECTION 250 MG in SODIUM CHL 0.9% 225 ML IV SCH (20:12)
[2018-05-05 22:00] VITALS: BP 112/53
[2018-05-06 05:01] VITALS: BP 128/51
[2018-05-06] MEDS: ADEMPAS 2 MG PO SCH ×3 (06:30→21:58)
[2018-05-06] MEDS: POTASSIUM CHL 20 Meq TABLET PO SCH ×3 (06:30→21:59)
[2018-05-06] MEDS: LEVOTHYROXINE SODIUM 50 MCG TAB PO SCH (06:32)
[2018-05-06 07:50] LABS: BUN/Creatinine Ratio 13.4; Calcium 8.8 mg/dL (8.5-10.1)
[2018-05-06 09:00] VITALS: BP 123/51
[2018-05-06] MEDS: DEXILANT 60MG PO SCH (10:00)
[2018-05-06] MEDS: ASPirin 81 mg TAB PO SCH (10:25)
[2018-05-06] MEDS: FAMOTIDINE 20 MG TAB PO SCH (10:25)
[2018-05-06] MEDS: CLOPIDOGREL BISULFATE 75 MG TAB PO SCH (10:27)
[2018-05-06 13:00] VITALS: BP 130/59
[2018-05-06] MEDS ORDERED: POTASSIUM CHL 20 Meq TABLET PO ONE (14:00)
[2018-05-06] MEDS: MILRINONE 20MG/100ML 100 ML IV SCH (14:24)
[2018-05-06 17:00] VITALS: BP 104/57
[2018-05-06] MEDS ORDERED: FAMOTIDINE 20 MG TAB PO ONE (17:30)
[2018-05-06 20:00] VITALS: BP 110/55
[2018-05-06 22:00] VITALS: BP 110/55
[2018-05-06] MEDS: HYDROcodone-ACET 5/325MG TAB PO PRN (23:20)
[2018-05-07] VITALS (7 sets, daily range): BP systolic 110–126; BP diastolic 55–61
[2018-05-07] MEDS: FUROSEMIDE INJECTION 250 MG in SODIUM CHL 0.9% 225 ML IV SCH ×2 (00:42→22:58)
[2018-05-07] MEDS: MILRINONE 20MG/100ML 100 ML IV SCH ×2 (05:31→18:33)
[2018-05-07] MEDS: POTASSIUM CHL 20 Meq TABLET PO SCH ×3 (05:58→22:03)
[2018-05-07] MEDS: ADEMPAS 2 MG PO SCH ×3 (05:58→22:03)
[2018-05-07] MEDS: LEVOTHYROXINE SODIUM 50 MCG TAB PO SCH (06:34)
[2018-05-07 07:34] LABS: Potassium 3.3 mmol/L (3.5-5.1)
[2018-05-07] MEDS: HYDROcodone-ACET 5/325MG TAB PO PRN ×2 (09:27→22:04)
[2018-05-07] MEDS: FAMOTIDINE 20 MG TAB PO SCH (09:28)
[2018-05-07] MEDS: ASPirin 81 mg TAB PO SCH (09:28)
[2018-05-07] MEDS: CLOPIDOGREL BISULFATE 75 MG TAB PO SCH (09:28)
[2018-05-07] MEDS: DEXILANT 60MG PO SCH (10:00)
[2018-05-07] MEDS ORDERED: DOCUSATE SOD 100 MG CAP PO ONE (12:45)
[2018-05-07] MEDS: fentaNYL 50MCG/HR 50 MCG/HR PAT TD SCH (13:40)
[2018-05-07] MEDS: DOCUSATE SOD 100 MG CAP PO SCH (22:03)
[2018-05-08 04:56] VITALS: BP 127/53
[2018-05-08] MEDS: ADEMPAS 2 MG PO SCH ×3 (06:15→22:18)
[2018-05-08] MEDS: POTASSIUM CHL 20 Meq TABLET PO SCH ×3 (06:15→22:18)
[2018-05-08] MEDS: LEVOTHYROXINE SODIUM 50 MCG TAB PO SCH (06:31)
[2018-05-08 06:45] LABS: BUN/Creatinine Ratio 15.9; Calcium 7.9 mg/dL (8.5-10.1)
[2018-05-08 06:51] LABS: Potassium 2.9 mmol/L (3.5-5.1)
[2018-05-08] MEDS ORDERED: POTASSIUM CHL 20 Meq TABLET PO ONE ×2 (07:30→09:30)
[2018-05-08 08:00] VITALS: BP 111/55
[2018-05-08 09:47] VITALS: BP 116/52
[2018-05-08] MEDS: DEXILANT 60MG PO SCH (09:51)
[2018-05-08] MEDS: DOCUSATE SOD 100 MG CAP PO SCH ×2 (09:52→22:18)
[2018-05-08] MEDS: CLOPIDOGREL BISULFATE 75 MG TAB PO SCH (09:52)
[2018-05-08] MEDS: FAMOTIDINE 20 MG TAB PO SCH (09:52)
[2018-05-08] MEDS: HYDROcodone-ACET 5/325MG TAB PO PRN (09:53)
[2018-05-08] MEDS: ASPirin 81 mg TAB PO SCH (09:54)
[2018-05-08] MEDS: MILRINONE 20MG/100ML 100 ML IV SCH (10:03)
[2018-05-08 13:00] VITALS: BP 106/60
[2018-05-08 16:43] VITALS: BP 127/70
[2018-05-08 21:48] VITALS: BP 120/54
[2018-05-09] MEDS: MILRINONE 20MG/100ML 100 ML IV SCH ×2 (04:41→20:42)
[2018-05-09 04:43] VITALS: BP 115/55
[2018-05-09] MEDS: ADEMPAS 2 MG PO SCH ×3 (06:06→22:51)
[2018-05-09] MEDS: POTASSIUM CHL 20 Meq TABLET PO SCH ×3 (06:07→22:52)
[2018-05-09] MEDS: LEVOTHYROXINE SODIUM 50 MCG TAB PO SCH (06:09)
[2018-05-09 06:36] LABS: BUN/Creatinine Ratio 15.8; Calcium 9.3 mg/dL (8.5-10.1); Potassium 4.2 mmol/L (3.5-5.1)
[2018-05-09 08:00] VITALS: BP 115/64
[2018-05-09] MEDS: DEXILANT 60MG PO SCH (10:00)
[2018-05-09] MEDS: CLOPIDOGREL BISULFATE 75 MG TAB PO SCH (10:02)
[2018-05-09] MEDS: DOCUSATE SOD 100 MG CAP PO SCH ×2 (10:02→22:51)
[2018-05-09] MEDS: FAMOTIDINE 20 MG TAB PO SCH (10:02)
[2018-05-09] MEDS: ASPirin 81 mg TAB PO SCH (10:02)
[2018-05-09 12:24] VITALS: BP 109/50
[2018-05-09 16:46] VITALS: BP 119/63
[2018-05-09] MEDS ORDERED: SUCRALFATE 1 GM TAB PO SCH (18:00)
[2018-05-09] MEDS: SUCRALFATE 1 GM/10 ML ORAL SUSP PO SCH ×2 (18:17→22:51)
[2018-05-09] MEDS: HYDROcodone-ACET 5/325MG TAB PO PRN (20:41)
[2018-05-09 21:42] VITALS: BP 133/63
[2018-05-10 04:43] VITALS: BP 121/52
[2018-05-10] MEDS: POTASSIUM CHL 20 Meq TABLET PO SCH ×3 (06:53→21:55)
[2018-05-10] MEDS: SUCRALFATE 1 GM/10 ML ORAL SUSP PO SCH ×4 (06:53→21:44)
[2018-05-10] MEDS: ADEMPAS 2 MG PO SCH ×3 (06:53→21:54)
[2018-05-10] MEDS: LEVOTHYROXINE SODIUM 50 MCG TAB PO SCH (06:53)
[2018-05-10 07:25] LABS: Calcium 8.9 mg/dL (8.5-10.1); Potassium 4.5 mmol/L (3.5-5.1)
[2018-05-10 09:00] VITALS: BP 110/50
[2018-05-10] MEDS: FAMOTIDINE 20 MG TAB PO SCH (09:04)
[2018-05-10] MEDS: CLOPIDOGREL BISULFATE 75 MG TAB PO SCH (09:04)
[2018-05-10] MEDS: DOCUSATE SOD 100 MG CAP PO SCH ×2 (09:04→21:44)
[2018-05-10] MEDS: ASPirin 81 mg TAB PO SCH (09:04)
[2018-05-10] MEDS: fentaNYL 50MCG/HR 50 MCG/HR PAT TD SCH (09:05)
[2018-05-10] MEDS: DEXILANT 60MG PO SCH (09:13)
[2018-05-10 13:00] VITALS: BP 128/57
[2018-05-10 17:52] VITALS: BP 134/70
[2018-05-10 21:30] VITALS: BP 122/49
[2018-05-10] MEDS: MILRINONE 20MG/100ML 100 ML IV SCH (21:45)
[2018-05-11] MEDS: MILRINONE 20MG/100ML 100 ML IV SCH (04:41)
[2018-05-11 05:00] VITALS: BP 130/51
[2018-05-11] MEDS: LEVOTHYROXINE SODIUM 50 MCG TAB PO SCH (06:41)
[2018-05-11] MEDS: POTASSIUM CHL 20 Meq TABLET PO SCH (06:41)
[2018-05-11] MEDS: SUCRALFATE 1 GM/10 ML ORAL SUSP PO SCH (06:41)
[2018-05-11] MEDS: ADEMPAS 2 MG PO SCH (06:42)
[2018-05-11 07:41] VITALS: BP 114/55
[2018-05-11] MEDS: FAMOTIDINE 20 MG TAB PO SCH (08:32)
[2018-05-11] MEDS: DOCUSATE SOD 100 MG CAP PO SCH (08:32)
[2018-05-11] MEDS: CLOPIDOGREL BISULFATE 75 MG TAB PO SCH (08:32)
[2018-05-11] MEDS: ASPirin 81 mg TAB PO SCH (08:32)
[2018-05-11] MEDS: HYDROcodone-ACET 5/325MG TAB PO PRN (08:43)
== END 2018-05-11 11:15 | disposition home or self-care (01) | DRG 291 ==
LOC: EAST 17:33 → TELE-EAST 05-05 23:21
PROVIDERS: ADMIT Internal Medicine Cardiovascular Disease; ATTEND Internal Medicine Cardiovascular Disease
DX: I13.0 Hypertensive heart and chronic kidney disease with heart failure and stage 1 through stage 4 chronic kidney disease, or unspecified chronic kidney disease (principal); I50.43 Acute on chronic combined systolic (congestive) and diastolic (congestive) heart failure; N17.9 Acute kidney failure, unspecified; D64.9 Anemia, unspecified; E87.6 Hypokalemia; N18.9 Chronic kidney disease, unspecified; E78.5 Hyperlipidemia, unspecified; I25.10 Atherosclerotic heart disease of native coronary artery without angina pectoris; I27.20 Pulmonary hypertension, unspecified; M81.0 Age-related osteoporosis without current pathological fracture; Z95.5 Presence of coronary angioplasty implant and graft; Z95.1 Presence of aortocoronary bypass graft; M40.209 Unspecified kyphosis, site unspecified; I50.810 Right heart failure, unspecified; Z79.82 Long term (current) use of aspirin
CPT/HCPCS: 36415; 80048; 80053; 83735; 83880; 84443; 85025; 93005; 97110; 97116; 97163; 97530; A6257; G0463; J3480

== ENCOUNTER → 2018-05-03 | Outpatient (CLI) | payer MEDICARE, OTHER ==
[~2018-05-03] MED LIST changes: -ACETAMINOPHEN 325 MG TAB PO ONE; -ACETAMINOPHEN 500 MG TAB PO ONE; -ASPirin 81 mg TAB ONE; -ASPirin 81 mg TAB PO ONE; -BUMETANIDE (0.25MG/ML) 4 ML VIAL IV ONE; -BUMETANIDE (0.25MG/ML) 4 ML VIAL ONE; -KETOROLAC TROMETH 30 MG/ML 1ML VIAL IV ONE; -KETOROLAC TROMETH 60MG/2ML VIAL IM ONE; -MAGNESIUM CITRATE SOLUTION 300 ML BTL ONE; -MAGNESIUM CITRATE SOLUTION 300 ML BTL PO ONE
[2018-05-03 11:50] VITALS: BP 135/56
[2018-05-03 16:06] LABS: Eosinophils # (auto) 0.1 uL; Hemoglobin 12.2 g/dL (12.2-16.2); Lymphocytes # (auto) 0.9 uL; Monocytes # (auto) 0.9 uL; Red Blood Cells 4.02 10^6/uL (4.0-5.20)
[2018-05-03 16:11] LABS: Basophils # (auto) 0.1 uL; Basophils % (auto) 0.7 % (0.0-2.0); Eosinophils % (auto) 1.2 % (0.0-7.0); Hematocrit 36.9 % (36.0-46.0); Mean Corpuscular Hemoglobin 30.2 pg (28.0-32.0); Mean Corpuscular Volume 91.7 fL (80.0-100.0); Monocytes % (auto) 12.1 % (0.0-12.0); Neutrophils # (auto) 5.9 uL; Platelet Count (auto) 214 10^3/uL (140-450); Red Cell Distribution Width 14.7 % (11.8-14.3); White Blood Cell 7.8 10^3/uL (4.4-10.8)
[2018-05-03 16:21] LABS: Albumin 3.9 g/dL (3.4-5.0); BUN/Creatinine Ratio 23.2; Bilirubin, Total 0.5 mg/dL (0.2-1.0); Calcium 8.8 mg/dL (8.5-10.1); Potassium 4.5 mmol/L (3.5-5.1)
[2018-05-03 17:25] VITALS: BP 112/41
== END | disposition home or self-care (01) ==
LOC: CHF HDHVI 11:47
PROVIDERS: ATTEND Internal Medicine Cardiovascular Disease
DX: I50.23 Acute on chronic systolic (congestive) heart failure (principal); D64.9 Anemia, unspecified; E03.9 Hypothyroidism, unspecified; I10 Essential (primary) hypertension
CPT/HCPCS: 36415; 80053; 83880; 84443; 85025; 96523; G0463

== ENCOUNTER → 2018-05-20 | Outpatient (CLI) | payer MEDICARE, OTHER ==
[~2018-05-20] MED LIST changes: +CYANOCOBALAMIN (B-12) 1000 MCG/1 ML VIAL IM ONE; +CYANOCOBALAMIN (B-12) 1000 MCG/1 ML VIAL ONE; +LEVO125T66 PO; -LEVO25TA49 PO; +LOSA25TA8 PO; -POTA-167 PO; +POTA20TA53 PO; +TORS20TA20 PO
[2018-05-20 10:15] VITALS: BP 108/43
[2018-05-20 12:05] VITALS: BP 114/52
[2018-05-20 16:03] LABS: BUN/Creatinine Ratio 25.1; Calcium 8.8 mg/dL (8.5-10.1); Magnesium 3.5 mg/dL (1.6-2.6); Potassium 4.5 mmol/L (3.5-5.1)
[2018-05-20 16:07] LABS: Basophils # (auto) 0.1 uL; Basophils % (auto) 0.9 % (0.0-2.0); Eosinophils # (auto) 0.1 uL; Eosinophils % (auto) 1.2 % (0.0-7.0); Hematocrit 37.8 % (36.0-46.0); Hemoglobin 12.6 g/dL (12.2-16.2); Lymphocytes % (auto) 12.3 % (10.0-50.0); Mean Corpuscular Hemoglobin 30.3 pg (28.0-32.0); Mean Corpuscular Hgb Conc. 33.2 g/dL (32.0-36.0); Mean Corpuscular Volume 91.3 fL (80.0-100.0); Monocytes # (auto) 0.6 uL; Monocytes % (auto) 7.9 % (0.0-12.0); Neutrophils # (auto) 6.1 uL; Neutrophils % (auto) 77.7 % (37.0-80.0); Nucleated Red Blood Cells % 0.6 %; Platelet Count (auto) 258 10^3/uL (140-450); Red Blood Cells 4.14 10^6/uL (4.0-5.20); Red Cell Distribution Width 14.5 % (11.8-14.3); White Blood Cell 7.9 10^3/uL (4.4-10.8)
== END | disposition home or self-care (01) ==
LOC: CHF HDHVI 10:13
PROVIDERS: ATTEND Internal Medicine Cardiovascular Disease
DX: D51.9 Vitamin B12 deficiency anemia, unspecified (principal); E83.40 Disorders of magnesium metabolism, unspecified; I27.21 Secondary pulmonary arterial hypertension; R53.83 Other fatigue; G89.29 Other chronic pain; I25.10 Atherosclerotic heart disease of native coronary artery without angina pectoris; I13.0 Hypertensive heart and chronic kidney disease with heart failure and stage 1 through stage 4 chronic kidney disease, or unspecified chronic kidney disease; I50.43 Acute on chronic combined systolic (congestive) and diastolic (congestive) heart failure; N18.3 Chronic kidney disease, stage 3 (moderate); M81.0 Age-related osteoporosis without current pathological fracture; E78.5 Hyperlipidemia, unspecified; E03.9 Hypothyroidism, unspecified; I25.2 Old myocardial infarction; E78.00 Pure hypercholesterolemia, unspecified; J44.9 Chronic obstructive pulmonary disease, unspecified; Z68.23 Body mass index [BMI] 23.0-23.9, adult; Z79.01 Long term (current) use of anticoagulants; Z98.61 Coronary angioplasty status
CPT/HCPCS: 36415; 80048; 83735; 85025; 93701; 96372; G0463; J3420

== ENCOUNTER → 2018-05-27 | Outpatient (CLI) | payer MEDICARE, OTHER ==
[~2018-05-27] MED LIST changes: -CYANOCOBALAMIN (B-12) 1000 MCG/1 ML VIAL IM ONE; -CYANOCOBALAMIN (B-12) 1000 MCG/1 ML VIAL ONE
[2018-05-27 11:20] VITALS: BP 114/55
[2018-05-27 16:33] LABS: Potassium 4.4 mmol/L (3.5-5.1)
== END | disposition home or self-care (01) ==
LOC: CHF HDHVI 09:51
PROVIDERS: ATTEND Internal Medicine Cardiovascular Disease
DX: I25.10 Atherosclerotic heart disease of native coronary artery without angina pectoris (principal); I50.9 Heart failure, unspecified; E87.6 Hypokalemia; R94.4 Abnormal results of kidney function studies; D64.9 Anemia, unspecified
CPT/HCPCS: 36415; 82565; 84132; 84520; G0463

== ENCOUNTER → 2018-06-02 | Outpatient (CLI) | payer MEDICARE, OTHER ==
[~2018-06-02] MED LIST changes: +FUROSEMIDE INJECTION 10 ML ONE; +FUROSEMIDE INJECTION 100 MG in SODIUM CHL 0.9% 100 ML IV SCH; +POTASSIUM CHL 10 Meq TABLET PO ONE; +POTASSIUM CHL 20 Meq TABLET PO ONE
[2018-06-02 12:30] VITALS: BP 119/59
[2018-06-02 12:45] VITALS: BP 116/44
[2018-06-02 16:01] LABS: Basophils # (auto) 0.1 uL; Basophils % (auto) 0.8 % (0.0-2.0); Eosinophils # (auto) 0.1 uL; Eosinophils % (auto) 0.9 % (0.0-7.0); Hematocrit 34.8 % (36.0-46.0); Hemoglobin 11.6 g/dL (12.2-16.2); Lymphocytes # (auto) 0.9 uL; Lymphocytes % (auto) 12.1 % (10.0-50.0); Mean Corpuscular Hemoglobin 30.6 pg (28.0-32.0); Mean Corpuscular Hgb Conc. 33.2 g/dL (32.0-36.0); Mean Corpuscular Volume 92.2 fL (80.0-100.0); Monocytes # (auto) 0.8 uL; Monocytes % (auto) 10.7 % (0.0-12.0); Neutrophils # (auto) 5.3 uL; Neutrophils % (auto) 75.5 % (37.0-80.0); Nucleated Red Blood Cells % 0.4 %; Platelet Count (auto) 185 10^3/uL (140-450); Red Blood Cells 3.78 10^6/uL (4.0-5.20); Red Cell Distribution Width 15.9 % (11.8-14.3); White Blood Cell 7.1 10^3/uL (4.4-10.8)
[2018-06-02 16:12] LABS: BUN/Creatinine Ratio 31.7; Calcium 9.1 mg/dL (8.5-10.1); Magnesium 3.4 mg/dL (1.6-2.6); Potassium 5.2 mmol/L (3.5-5.1)
[2018-06-02 16:17] VITALS: BP 113/47
== END | disposition home or self-care (01) ==
LOC: CHF HDHVI 11:58
PROVIDERS: ATTEND Internal Medicine Cardiovascular Disease
DX: I13.0 Hypertensive heart and chronic kidney disease with heart failure and stage 1 through stage 4 chronic kidney disease, or unspecified chronic kidney disease (principal); N18.3 Chronic kidney disease, stage 3 (moderate); I50.43 Acute on chronic combined systolic (congestive) and diastolic (congestive) heart failure; E83.40 Disorders of magnesium metabolism, unspecified; D64.9 Anemia, unspecified; I27.21 Secondary pulmonary arterial hypertension; E87.70 Fluid overload, unspecified; G89.29 Other chronic pain; R53.83 Other fatigue; I25.10 Atherosclerotic heart disease of native coronary artery without angina pectoris; E87.6 Hypokalemia; J44.9 Chronic obstructive pulmonary disease, unspecified; E78.5 Hyperlipidemia, unspecified; E03.9 Hypothyroidism, unspecified; I25.2 Old myocardial infarction; E78.00 Pure hypercholesterolemia, unspecified; M81.0 Age-related osteoporosis without current pathological fracture; F41.9 Anxiety disorder, unspecified; Z95.1 Presence of aortocoronary bypass graft; Z98.61 Coronary angioplasty status; Z79.01 Long term (current) use of anticoagulants; Z95.810 Presence of automatic (implantable) cardiac defibrillator; Z68.23 Body mass index [BMI] 23.0-23.9, adult; Z79.82 Long term (current) use of aspirin
CPT/HCPCS: 36415; 80048; 83735; 85025; 96365; 96366; G0463; J1940

== ENCOUNTER 2018-06-08 17:51 | Inpatient (IN) | payer MEDICARE, OTHER ==
[~2018-06-08] VITALS: Ht 165.1 cm; Wt 55.1 kg
[~2018-06-08 17:51] MED LIST changes: -FUROSEMIDE 40 MG/4 ML VIAL ONE; -FUROSEMIDE INJECTION 250 MG in SODIUM CHL 0.9% 225 ML IV SCH
[2018-06-08] MEDS ORDERED: MORPHINE SULF INJ 2 MG/ML SYRINGE 1ML IV PRN (18:30)
[2018-06-08] MEDS ORDERED: FUROSEMIDE INJECTION 250 MG in D5W 5% 225 ML IV SCH (18:30)
[2018-06-08] MEDS ORDERED: NITROGLYCERIN 0.4 MG SL TAB SL PRN (18:30)
[2018-06-08] MEDS ORDERED: FUROSEMIDE INJECTION 250 MG in SODIUM CHL 0.9% 225 ML IV SCH (19:15)
[2018-06-08 20:00] VITALS: BP 99/46
[2018-06-08 20:55] LABS: Urine Bacteria FEW /hpf (None Seen); Urine Blood Negative /uL (Negative); Urine Hyaline Cast FEW /lpf (0 - 2); Urine Specific Gravity 1.009 (1.001-1.035); Urine WBC 9 /hpf (0 - 5)
[2018-06-08] MEDS: DOBUTamine 1000MCG/ML 250 ML IV SCH (21:15)
[2018-06-08 22:00] VITALS: BP 99/46
[2018-06-08] MEDS: ADEMPAS 2 MG PO SCH (22:32)
[2018-06-09 05:00] VITALS: BP 106/41
[2018-06-09] MEDS: ADEMPAS 2 MG PO SCH ×3 (06:11→22:22)
[2018-06-09] MEDS: LEVOTHYROXINE SODIUM 100 MCG TAB PO SCH (06:40)
[2018-06-09] MEDS: LEVOTHYROXINE SODIUM 25 MCG TAB PO SCH (06:40)
[2018-06-09 06:42] LABS: Basophils # (auto) 0.1 uL; Basophils % (auto) 1.1 % (0.0-2.0); Eosinophils # (auto) 0.2 uL; Eosinophils % (auto) 2.7 % (0.0-7.0); Hematocrit 31.8 % (36.0-46.0); Hemoglobin 10.9 g/dL (12.2-16.2); Lymphocytes # (auto) 1.3 uL; Lymphocytes % (auto) 19.4 % (10.0-50.0); Mean Corpuscular Hemoglobin 31.3 pg (28.0-32.0); Mean Corpuscular Hgb Conc. 34.3 g/dL (32.0-36.0); Mean Corpuscular Volume 91.2 fL (80.0-100.0); Monocytes # (auto) 0.8 uL; Monocytes % (auto) 11.6 % (0.0-12.0); Neutrophils # (auto) 4.2 uL; Neutrophils % (auto) 65.2 % (37.0-80.0); Nucleated Red Blood Cells % 0.1 %; Platelet Count (auto) 177 10^3/uL (140-450); Red Blood Cells 3.49 10^6/uL (4.0-5.20); Red Cell Distribution Width 16.1 % (11.8-14.3); White Blood Cell 6.5 10^3/uL (4.4-10.8)
[2018-06-09 06:52] LABS: Albumin 2.9 g/dL (3.4-5.0); Calcium 8.1 mg/dL (8.5-10.1); Magnesium 2.7 mg/dL (1.6-2.6)
[2018-06-09 06:53] LABS: BUN/Creatinine Ratio 31.8
[2018-06-09 06:56] LABS: Bilirubin, Total 0.6 mg/dL (0.2-1.0)
[2018-06-09 07:39] LABS: Potassium 2.9 mmol/L (3.5-5.1)
[2018-06-09 09:00] VITALS: BP 111/44
[2018-06-09] MEDS: ASPirin 81 mg TAB PO SCH (09:52)
[2018-06-09] MEDS: CLOPIDOGREL BISULFATE 75 MG TAB PO SCH (09:52)
[2018-06-09] MEDS: DEXILANT 60MG PO SCH (09:52)
[2018-06-09] MEDS: DOBUTamine 1000MCG/ML 250 ML IV SCH (15:34)
[2018-06-09] MEDS ORDERED: POTASSIUM EFFERVESENT TAB 25 MEQ PO ONE (16:15)
[2018-06-09] MEDS ORDERED: FUROSEMIDE INJECTION 100 MG in D5W 5% 90 ML IV SCH (16:30)
[2018-06-09 17:00] VITALS: BP 122/47
[2018-06-09] MEDS: LIDOCAINE 5% TOPICAL PATCH TOP SCH (18:58)
[2018-06-09] MEDS: HYDROcodone-ACET 10/325MG TAB PO PRN (19:02)
[2018-06-09 20:00] VITALS: BP 118/36
[2018-06-09] MEDS: POTASSIUM EFFERVESENT TAB 25 MEQ PO SCH (22:23)
[2018-06-09] MEDS: DOCUSATE SOD 100 MG CAP PO SCH (22:23)
[2018-06-10] MEDS: HYDROcodone-ACET 10/325MG TAB PO PRN ×3 (01:00→23:32)
[2018-06-10 05:37] VITALS: BP 121/35
[2018-06-10] MEDS: ADEMPAS 2 MG PO SCH ×3 (06:09→22:25)
[2018-06-10] MEDS: LEVOTHYROXINE SODIUM 25 MCG TAB PO SCH (06:10)
[2018-06-10] MEDS: LEVOTHYROXINE SODIUM 100 MCG TAB PO SCH (06:10)
[2018-06-10 09:00] VITALS: BP 111/46
[2018-06-10] MEDS: POTASSIUM EFFERVESENT TAB 25 MEQ PO SCH ×2 (09:26→22:24)
[2018-06-10] MEDS: DOCUSATE SOD 100 MG CAP PO SCH ×2 (09:27→22:22)
[2018-06-10] MEDS: ASPirin 81 mg TAB PO SCH (09:27)
[2018-06-10] MEDS: DEXILANT 60MG PO SCH (09:27)
[2018-06-10] MEDS: CLOPIDOGREL BISULFATE 75 MG TAB PO SCH (09:27)
[2018-06-10] MEDS: fentaNYL 100MCG/HR 100 MCG/HR PAT TD SCH (09:30)
[2018-06-10] MEDS: LIDOCAINE 5% TOPICAL PATCH TOP SCH (09:31)
[2018-06-10] MEDS: DOBUTamine 1000MCG/ML 250 ML IV SCH ×2 (09:31→23:36)
[2018-06-10 13:00] VITALS: BP 121/55
[2018-06-10] MEDS: FUROSEMIDE INJECTION 100 MG in D5W 5% 90 ML IV SCH (16:47)
[2018-06-10 17:00] VITALS: BP 111/51
[2018-06-10] MEDS: MILK OF MAGNESIA 30ML SUSP PO PRN (17:18)
[2018-06-10 17:50] LABS: Basophils # (auto) 0 uL; Basophils % (auto) 0.4 % (0.0-2.0); Eosinophils # (auto) 0.1 uL; Hematocrit 35.7 % (36.0-46.0); Hemoglobin 12.1 g/dL (12.2-16.2); Lymphocytes # (auto) 1.2 uL; Lymphocytes % (auto) 12.8 % (10.0-50.0); Mean Corpuscular Hemoglobin 30.3 pg (28.0-32.0); Mean Corpuscular Hgb Conc. 33.9 g/dL (32.0-36.0); Mean Corpuscular Volume 89.5 fL (80.0-100.0); Monocytes # (auto) 0.9 uL; Monocytes % (auto) 10.5 % (0.0-12.0); Neutrophils # (auto) 6.8 uL; Neutrophils % (auto) 75.3 % (37.0-80.0); Nucleated Red Blood Cells % 0.1 %; Platelet Count (auto) 195 10^3/uL (140-450); Red Blood Cells 3.99 10^6/uL (4.0-5.20); Red Cell Distribution Width 15.7 % (11.8-14.3)
[2018-06-10 18:04] LABS: Albumin 2.8 g/dL (3.4-5.0); BUN/Creatinine Ratio 23.7; Calcium 7.5 mg/dL (8.5-10.1)
[2018-06-10 18:07] LABS: Bilirubin, Total 0.7 mg/dL (0.2-1.0); Total Protein 6.3 g/dL (6.4-8.2)
[2018-06-10 18:08] LABS: Potassium 2.4 mmol/L (3.5-5.1)
[2018-06-10] MEDS ORDERED: POTASSIUM CHL 20 Meq TABLET PO ONE (18:45)
[2018-06-10 20:00] VITALS: BP 109/43
[2018-06-10 22:00] VITALS: BP_SYST 109
[2018-06-11 05:14] VITALS: BP 108/46
[2018-06-11] MEDS: ADEMPAS 2 MG PO SCH ×3 (05:38→22:11)
[2018-06-11] MEDS: LEVOTHYROXINE SODIUM 25 MCG TAB PO SCH (06:22)
[2018-06-11] MEDS: LEVOTHYROXINE SODIUM 100 MCG TAB PO SCH (06:22)
[2018-06-11] MEDS: POTASSIUM CHL 20 Meq TABLET PO SCH ×4 (08:01→22:07)
[2018-06-11 09:00] VITALS: BP 114/49
[2018-06-11] MEDS: DOCUSATE SOD 100 MG CAP PO SCH ×2 (10:10→22:06)
[2018-06-11] MEDS: ASPirin 81 mg TAB PO SCH (10:10)
[2018-06-11] MEDS: DEXILANT 60MG PO SCH (10:11)
[2018-06-11] MEDS: LIDOCAINE 5% TOPICAL PATCH TOP SCH (10:11)
[2018-06-11] MEDS: CLOPIDOGREL BISULFATE 75 MG TAB PO SCH (10:11)
[2018-06-11 13:00] VITALS: BP 116/46
[2018-06-11] MEDS: FUROSEMIDE INJECTION 100 MG in D5W 5% 90 ML IV SCH (15:34)
[2018-06-11] MEDS: DOBUTamine 1000MCG/ML 250 ML IV SCH (15:35)
[2018-06-11 17:00] VITALS: BP 113/73
[2018-06-11 17:42] LABS: Potassium 3.2 mmol/L (3.5-5.1)
[2018-06-11 17:44] LABS: BUN/Creatinine Ratio 18.6
[2018-06-11 20:00] VITALS: BP 103/51
[2018-06-11] MEDS: fentaNYL 100MCG/HR 100 MCG/HR PAT TD SCH (20:57)
[2018-06-11 22:00] VITALS: BP 103/51
[2018-06-12] VITALS (7 sets, daily range): BP systolic 100–125; BP diastolic 48–74
[2018-06-12] MEDS: MILK OF MAGNESIA 30ML SUSP PO PRN (01:25)
[2018-06-12] MEDS: POTASSIUM CHL 20 Meq TABLET PO SCH ×3 (01:25→23:49)
[2018-06-12] MEDS: HYDROcodone-ACET 10/325MG TAB PO PRN (01:25)
[2018-06-12] MEDS: DOBUTamine 1000MCG/ML 250 ML IV SCH ×2 (04:30→20:21)
[2018-06-12] MEDS: LEVOTHYROXINE SODIUM 25 MCG TAB PO SCH (05:50)
[2018-06-12] MEDS: LEVOTHYROXINE SODIUM 100 MCG TAB PO SCH (05:50)
[2018-06-12] MEDS: ADEMPAS 2 MG PO SCH ×3 (05:51→22:00)
[2018-06-12] MEDS: CLOPIDOGREL BISULFATE 75 MG TAB PO SCH (09:54)
[2018-06-12] MEDS: ASPirin 81 mg TAB PO SCH (09:54)
[2018-06-12] MEDS: DOCUSATE SOD 100 MG CAP PO SCH ×2 (09:54→22:00)
[2018-06-12] MEDS: DEXILANT 60MG PO SCH ×2 (09:55→10:00)
[2018-06-12] MEDS: LIDOCAINE 5% TOPICAL PATCH TOP SCH (09:57)
[2018-06-12 10:47] LABS: BUN/Creatinine Ratio 15.8; Calcium 8.2 mg/dL (8.5-10.1); Potassium 4.2 mmol/L (3.5-5.1)
[2018-06-12] MEDS: FUROSEMIDE INJECTION 100 MG in D5W 5% 90 ML IV SCH (12:00)
[2018-06-13] VITALS (7 sets, daily range): BP systolic 99–115; BP diastolic 41–76
[2018-06-13] MEDS: FUROSEMIDE INJECTION 100 MG in D5W 5% 90 ML IV SCH (04:42)
[2018-06-13] MEDS: ADEMPAS 2 MG PO SCH ×3 (06:00→22:30)
[2018-06-13] MEDS: LEVOTHYROXINE SODIUM 25 MCG TAB PO SCH (07:06)
[2018-06-13] MEDS: LEVOTHYROXINE SODIUM 100 MCG TAB PO SCH (07:06)
[2018-06-13] MEDS: LIDOCAINE 5% TOPICAL PATCH TOP SCH (09:03)
[2018-06-13] MEDS: DOCUSATE SOD 100 MG CAP PO SCH ×2 (09:03→22:30)
[2018-06-13] MEDS: ASPirin 81 mg TAB PO SCH (09:03)
[2018-06-13] MEDS: POTASSIUM CHL 20 Meq TABLET PO SCH ×2 (09:03→22:30)
[2018-06-13] MEDS: CLOPIDOGREL BISULFATE 75 MG TAB PO SCH (09:03)
[2018-06-13] MEDS: DEXILANT 60MG PO SCH ×2 (09:07→10:00)
[2018-06-13] MEDS: DOBUTamine 1000MCG/ML 250 ML IV SCH (12:13)
[2018-06-13] MEDS: Ensure Enlive Chocolate 8oz Bottle PO SCH (17:44)
[2018-06-14] MEDS: FUROSEMIDE INJECTION 100 MG in D5W 5% 90 ML IV SCH ×2 (00:42→20:45)
[2018-06-14 05:13] VITALS: BP 100/52
[2018-06-14] MEDS: ADEMPAS 2 MG PO SCH ×3 (06:00→21:22)
[2018-06-14] MEDS: LEVOTHYROXINE SODIUM 100 MCG TAB PO SCH (07:00)
[2018-06-14] MEDS: LEVOTHYROXINE SODIUM 25 MCG TAB PO SCH (07:00)
[2018-06-14 07:26] LABS: Albumin 2.8 g/dL (3.4-5.0); BUN/Creatinine Ratio 18.7; Bilirubin, Total 0.5 mg/dL (0.2-1.0); Potassium 3.4 mmol/L (3.5-5.1); Total Protein 6.3 g/dL (6.4-8.2)
[2018-06-14 10:02] VITALS: BP 103/44
[2018-06-14] MEDS: DOBUTamine 1000MCG/ML 250 ML IV SCH ×2 (10:57→23:31)
[2018-06-14] MEDS: POTASSIUM CHL 20 Meq TABLET PO SCH ×2 (10:58→21:22)
[2018-06-14] MEDS: DOCUSATE SOD 100 MG CAP PO SCH ×2 (10:58→21:21)
[2018-06-14] MEDS: Ensure Enlive Chocolate 8oz Bottle PO SCH ×3 (10:58→18:00)
[2018-06-14] MEDS: LIDOCAINE 5% TOPICAL PATCH TOP SCH ×2 (10:59→11:00)
[2018-06-14] MEDS: ASPirin 81 mg TAB PO SCH (10:59)
[2018-06-14] MEDS: PANTOPRAZOLE 40 MG TAB PO SCH (10:59)
[2018-06-14] MEDS: CLOPIDOGREL BISULFATE 75 MG TAB PO SCH (11:06)
[2018-06-14 13:00] VITALS: BP 106/44
[2018-06-14 16:00] VITALS: BP 105/50
[2018-06-14] MEDS: Ensure Enlive Strawberry 8oz Bottle PO SCH (18:00)
[2018-06-14 20:00] VITALS: BP 111/54
[2018-06-14] MEDS: fentaNYL 100MCG/HR 100 MCG/HR PAT TD SCH (21:09)
[2018-06-14 21:29] VITALS: BP_SYST 110; BP_SYST 111; BP_DIAS 54; BP_DIAS 74
[2018-06-15 05:06] VITALS: BP 97/60
[2018-06-15] MEDS: ADEMPAS 2 MG PO SCH ×3 (05:37→21:27)
[2018-06-15] MEDS: LEVOTHYROXINE SODIUM 100 MCG TAB PO SCH (06:43)
[2018-06-15] MEDS: LEVOTHYROXINE SODIUM 25 MCG TAB PO SCH (06:43)
[2018-06-15 08:40] VITALS: BP 102/46
[2018-06-15] MEDS: Ensure Enlive Strawberry 8oz Bottle PO SCH ×2 (09:56→18:00)
[2018-06-15] MEDS: ASPirin 81 mg TAB PO SCH (09:56)
[2018-06-15] MEDS: Ensure Enlive Chocolate 8oz Bottle PO SCH ×3 (09:56→18:00)
[2018-06-15] MEDS: DOCUSATE SOD 100 MG CAP PO SCH ×2 (09:57→21:27)
[2018-06-15] MEDS: POTASSIUM CHL 20 Meq TABLET PO SCH (09:57)
[2018-06-15] MEDS: PANTOPRAZOLE 40 MG TAB PO SCH (09:57)
[2018-06-15] MEDS: CLOPIDOGREL BISULFATE 75 MG TAB PO SCH (09:57)
[2018-06-15 13:00] VITALS: BP 117/49
[2018-06-15] MEDS ORDERED: PANTOPRAZOLE 40 MG/10 ML VIAL IV ONE ×2 (13:00→13:30)
[2018-06-15] MEDS: DOBUTamine 1000MCG/ML 250 ML IV SCH ×2 (13:26→19:44)
[2018-06-15] MEDS: MILK OF MAGNESIA 30ML SUSP PO PRN (13:29)
[2018-06-15] MEDS: FUROSEMIDE INJECTION 100 MG in D5W 5% 90 ML IV SCH (16:42)
[2018-06-15 17:11] VITALS: BP 107/50
[2018-06-15 20:00] VITALS: BP 104/50
[2018-06-15] MEDS: POTASSIUM CHLORIDE 8 MEQ TAB PO SCH (21:27)
[2018-06-15 22:00] VITALS: BP 104/50
[2018-06-15] MEDS ORDERED: POTASSIUM CHLORIDE 8 MEQ TAB PO SCH (22:00)
[2018-06-16 05:00] VITALS: BP 112/51
[2018-06-16] MEDS: ADEMPAS 2 MG PO SCH ×3 (05:41→22:09)
[2018-06-16] MEDS: POTASSIUM CHLORIDE 8 MEQ TAB PO SCH ×4 (05:41→22:10)
[2018-06-16] MEDS: LEVOTHYROXINE SODIUM 100 MCG TAB PO SCH (06:45)
[2018-06-16] MEDS: LEVOTHYROXINE SODIUM 25 MCG TAB PO SCH (06:45)
[2018-06-16 09:00] VITALS: BP 108/45
[2018-06-16] MEDS: PANTOPRAZOLE 40 MG TAB PO SCH (09:55)
[2018-06-16] MEDS: Ensure Enlive Chocolate 8oz Bottle PO SCH ×3 (09:55→18:01)
[2018-06-16] MEDS: LIDOCAINE 5% TOPICAL PATCH TOP SCH (09:55)
[2018-06-16] MEDS: DOCUSATE SOD 100 MG CAP PO SCH ×2 (09:55→22:10)
[2018-06-16] MEDS: Ensure Enlive Strawberry 8oz Bottle PO SCH ×2 (09:55→18:01)
[2018-06-16] MEDS: ASPirin 81 mg TAB PO SCH (09:56)
[2018-06-16] MEDS: CLOPIDOGREL BISULFATE 75 MG TAB PO SCH (09:56)
[2018-06-16] MEDS ORDERED: PATIENTS OWN MEDICATION PO SCH (10:00)
[2018-06-16] MEDS: FUROSEMIDE INJECTION 100 MG in D5W 5% 90 ML IV SCH (13:57)
[2018-06-16 14:00] LABS: Prothrombin Time 10.7 sec (9.27-12.13)
[2018-06-16 14:20] VITALS: BP 104/39
[2018-06-16] MEDS ORDERED: LIDOCAINE 1% (LOCAL ANESTH.) PF 5ml SDV ID ONE (16:00)
[2018-06-16 17:00] VITALS: BP 112/40
[2018-06-16] MEDS ORDERED: POTASSIUM EFFERVESENT TAB 25 MEQ PO ONE (17:30)
[2018-06-16] MEDS: DOBUTamine 1000MCG/ML 250 ML IV SCH (18:02)
[2018-06-16 18:05] LABS: Basophils # (auto) 0.1 uL; Basophils % (auto) 1.4 % (0.0-2.0); Eosinophils # (auto) 0.2 uL; Eosinophils % (auto) 2.7 % (0.0-7.0); Hematocrit 36.3 % (36.0-46.0); Lymphocytes # (auto) 1.2 uL; Lymphocytes % (auto) 14.3 % (10.0-50.0); Mean Corpuscular Hemoglobin 30.5 pg (28.0-32.0); Mean Corpuscular Hgb Conc. 33.1 g/dL (32.0-36.0); Mean Corpuscular Volume 92.1 fL (80.0-100.0); Monocytes # (auto) 0.8 uL; Monocytes % (auto) 9.4 % (0.0-12.0); Neutrophils # (auto) 6.1 uL; Neutrophils % (auto) 72.2 % (37.0-80.0); Platelet Count (auto) 223 10^3/uL (140-450); Red Blood Cells 3.94 10^6/uL (4.0-5.20); Red Cell Distribution Width 16.4 % (11.8-14.3); White Blood Cell 8.4 10^3/uL (4.4-10.8)
[2018-06-16 18:19] LABS: Alanine Aminotransferase 34 U/L (13-56); Albumin 2.9 g/dL (3.4-5.0); Anion Gap 9 (5-15); Aspartate Aminotransferase 35 U/L (15-37); BUN/Creatinine Ratio 23.5; Blood Urea Nitrogen 35 mg/dL (7-18); Calcium 8.1 mg/dL (8.5-10.1); Carbon Dioxide 31 mmol/L (21-32); Chloride 100 mmol/L (98-107); GFR African American 43 mL/min; GFR Non-African American 36 mL/min; Glucose 107 mg/dL (74-106); Potassium 3.5 mmol/L (3.5-5.1); Sodium 140 mmol/L (136-145)
[2018-06-16 18:22] LABS: Alkaline Phosphatase 139 U/L (45-117); Bilirubin, Total 0.4 mg/dL (0.2-1.0); Total Protein 6.9 g/dL (6.4-8.2)
[2018-06-16 22:00] VITALS: BP 110/53
[2018-06-16] MEDS: SODIUM CHLOR 0.9% PF (SALINE LOCK) 10ML VIAL/SYR IV SCH (22:09)
[2018-06-17 05:07] VITALS: BP 103/44
[2018-06-17] MEDS: POTASSIUM CHLORIDE 8 MEQ TAB PO SCH ×4 (06:12→22:30)
[2018-06-17] MEDS: ADEMPAS 2 MG PO SCH ×3 (06:12→22:29)
[2018-06-17] MEDS: LEVOTHYROXINE SODIUM 100 MCG TAB PO SCH (06:12)
[2018-06-17] MEDS: LEVOTHYROXINE SODIUM 25 MCG TAB PO SCH (06:13)
[2018-06-17 09:00] VITALS: BP 101/74
[2018-06-17] MEDS: PANTOPRAZOLE 40 MG TAB PO SCH (09:22)
[2018-06-17] MEDS: DOCUSATE SOD 100 MG CAP PO SCH ×2 (09:22→22:30)
[2018-06-17] MEDS: Ensure Enlive Strawberry 8oz Bottle PO SCH ×2 (09:22→18:16)
[2018-06-17] MEDS: LIDOCAINE 5% TOPICAL PATCH TOP SCH (09:22)
[2018-06-17] MEDS: ASPirin 81 mg TAB PO SCH (09:22)
[2018-06-17] MEDS: Ensure Enlive Chocolate 8oz Bottle PO SCH ×3 (09:22→18:16)
[2018-06-17] MEDS: CLOPIDOGREL BISULFATE 75 MG TAB PO SCH (09:22)
[2018-06-17] MEDS: SODIUM CHLOR 0.9% PF (SALINE LOCK) 10ML VIAL/SYR IV SCH ×2 (10:00→22:29)
[2018-06-17] MEDS: FUROSEMIDE INJECTION 100 MG in D5W 5% 90 ML IV SCH (11:15)
[2018-06-17] MEDS: DOBUTamine 1000MCG/ML 250 ML IV SCH (11:16)
[2018-06-17 13:00] VITALS: BP 114/43
[2018-06-17 17:31] VITALS: BP 113/30
[2018-06-17 17:51] LABS: BUN/Creatinine Ratio 23.6; Calcium 7.8 mg/dL (8.5-10.1); Potassium 3.6 mmol/L (3.5-5.1)
[2018-06-17] MEDS: fentaNYL 100MCG/HR 100 MCG/HR PAT TD SCH (20:52)
[2018-06-17 22:00] VITALS: BP 110/46
[2018-06-18] MEDS: DOBUTamine 1000MCG/ML 250 ML IV SCH ×2 (01:18→18:51)
[2018-06-18] MEDS: FUROSEMIDE INJECTION 100 MG in D5W 5% 90 ML IV SCH ×2 (04:55→23:51)
[2018-06-18 05:43] VITALS: BP 104/46
[2018-06-18] MEDS: POTASSIUM CHLORIDE 8 MEQ TAB PO SCH ×4 (06:14→23:50)
[2018-06-18] MEDS: LEVOTHYROXINE SODIUM 100 MCG TAB PO SCH (06:14)
[2018-06-18] MEDS: ADEMPAS 2 MG PO SCH ×4 (06:14→23:50)
[2018-06-18] MEDS: LEVOTHYROXINE SODIUM 25 MCG TAB PO SCH (06:15)
[2018-06-18] MEDS: Ensure Enlive Chocolate 8oz Bottle PO SCH ×3 (08:00→18:00)
[2018-06-18] MEDS: Ensure Enlive Strawberry 8oz Bottle PO SCH ×2 (08:00→18:00)
[2018-06-18 09:00] VITALS: BP 93/43
[2018-06-18] MEDS: CLOPIDOGREL BISULFATE 75 MG TAB PO SCH (09:18)
[2018-06-18] MEDS: PANTOPRAZOLE 40 MG TAB PO SCH (09:18)
[2018-06-18] MEDS: DOCUSATE SOD 100 MG CAP PO SCH ×2 (09:18→23:50)
[2018-06-18] MEDS: LIDOCAINE 5% TOPICAL PATCH TOP SCH (09:18)
[2018-06-18] MEDS: ASPirin 81 mg TAB PO SCH (09:18)
[2018-06-18] MEDS: SODIUM CHLOR 0.9% PF (SALINE LOCK) 10ML VIAL/SYR IV SCH ×2 (09:23→23:50)
[2018-06-18 13:00] VITALS: BP 114/57
[2018-06-18 17:56] VITALS: BP 114/46
[2018-06-18 23:25] VITALS: BP 117/32
[2018-06-19 05:14] VITALS: BP 120/30
[2018-06-19] MEDS: POTASSIUM CHLORIDE 8 MEQ TAB PO SCH ×5 (06:00→21:55)
[2018-06-19] MEDS: ADEMPAS 2 MG PO SCH ×3 (06:00→21:56)
[2018-06-19] MEDS: LEVOTHYROXINE SODIUM 100 MCG TAB PO SCH (06:25)
[2018-06-19] MEDS: LEVOTHYROXINE SODIUM 25 MCG TAB PO SCH (06:25)
[2018-06-19] MEDS: Ensure Enlive Strawberry 8oz Bottle PO SCH ×2 (08:00→17:40)
[2018-06-19] MEDS: Ensure Enlive Chocolate 8oz Bottle PO SCH ×3 (08:13→14:16)
[2018-06-19 09:00] VITALS: BP 110/77
[2018-06-19] MEDS: LIDOCAINE 5% TOPICAL PATCH TOP SCH (10:42)
[2018-06-19] MEDS: PANTOPRAZOLE 40 MG TAB PO SCH (10:42)
[2018-06-19] MEDS: DOCUSATE SOD 100 MG CAP PO SCH ×2 (10:42→21:55)
[2018-06-19] MEDS: CLOPIDOGREL BISULFATE 75 MG TAB PO SCH (10:42)
[2018-06-19] MEDS: ASPirin 81 mg TAB PO SCH (10:42)
[2018-06-19] MEDS: DOBUTamine 1000MCG/ML 250 ML IV SCH (10:43)
[2018-06-19] MEDS: SODIUM CHLOR 0.9% PF (SALINE LOCK) 10ML VIAL/SYR IV SCH ×2 (10:45→21:56)
[2018-06-19 13:00] VITALS: BP 109/72
[2018-06-19 17:00] VITALS: BP 101/60
[2018-06-19 22:00] VITALS: BP 105/66
[2018-06-20] MEDS: FUROSEMIDE INJECTION 100 MG in D5W 5% 90 ML IV SCH ×2 (04:30→16:50)
[2018-06-20] MEDS: DOBUTamine 1000MCG/ML 250 ML IV SCH ×2 (04:31→18:02)
[2018-06-20 05:38] VITALS: BP 112/42
[2018-06-20] MEDS: LEVOTHYROXINE SODIUM 100 MCG TAB PO SCH (06:50)
[2018-06-20] MEDS: POTASSIUM CHLORIDE 8 MEQ TAB PO SCH ×4 (06:51→22:45)
[2018-06-20] MEDS: ADEMPAS 2 MG PO SCH ×3 (06:51→22:45)
[2018-06-20] MEDS: LEVOTHYROXINE SODIUM 25 MCG TAB PO SCH (06:51)
[2018-06-20] MEDS: Ensure Enlive Chocolate 8oz Bottle PO SCH ×2 (07:58→12:00)
[2018-06-20] MEDS: Ensure Enlive Strawberry 8oz Bottle PO SCH ×2 (07:58→18:01)
[2018-06-20 09:00] VITALS: BP 108/47
[2018-06-20] MEDS: SODIUM CHLOR 0.9% PF (SALINE LOCK) 10ML VIAL/SYR IV SCH ×2 (09:48→22:54)
[2018-06-20] MEDS: PANTOPRAZOLE 40 MG TAB PO SCH (09:49)
[2018-06-20] MEDS: CLOPIDOGREL BISULFATE 75 MG TAB PO SCH (09:49)
[2018-06-20] MEDS: DOCUSATE SOD 100 MG CAP PO SCH ×2 (09:49→22:45)
[2018-06-20] MEDS: LIDOCAINE 5% TOPICAL PATCH TOP SCH (09:49)
[2018-06-20] MEDS: ASPirin 81 mg TAB PO SCH (09:49)
[2018-06-20 10:53] LABS: Basophils # (auto) 0.1 uL; Basophils % (auto) 1.4 % (0.0-2.0); Eosinophils # (auto) 0.4 uL; Eosinophils % (auto) 4.6 % (0.0-7.0); Hematocrit 34.4 % (36.0-46.0); Hemoglobin 11.1 g/dL (12.2-16.2); Lymphocytes # (auto) 1.4 uL; Lymphocytes % (auto) 17.9 % (10.0-50.0); Mean Corpuscular Hemoglobin 29.6 pg (28.0-32.0); Mean Corpuscular Hgb Conc. 32.4 g/dL (32.0-36.0); Mean Corpuscular Volume 91.3 fL (80.0-100.0); Monocytes # (auto) 0.9 uL; Monocytes % (auto) 10.7 % (0.0-12.0); Neutrophils # (auto) 5.3 uL; Neutrophils % (auto) 65.4 % (37.0-80.0); Platelet Count (auto) 222 10^3/uL (140-450); Red Blood Cells 3.77 10^6/uL (4.0-5.20); Red Cell Distribution Width 16.2 % (11.8-14.3); White Blood Cell 8.1 10^3/uL (4.4-10.8)
[2018-06-20 11:16] LABS: Albumin 2.8 g/dL (3.4-5.0); Bilirubin, Total 0.4 mg/dL (0.2-1.0); Potassium 3.4 mmol/L (3.5-5.1); Total Protein 6.5 g/dL (6.4-8.2)
[2018-06-20 12:00] VITALS: BP 112/47
[2018-06-20] MEDS ORDERED: POTASSIUM EFFERVESENT TAB 25 MEQ PO ONE (13:00)
[2018-06-20 16:00] VITALS: BP 108/35
[2018-06-20] MEDS: HYDROcodone-ACET 10/325MG TAB PO PRN (16:47)
[2018-06-20 22:00] VITALS: BP 110/35
[2018-06-20] MEDS: fentaNYL 100MCG/HR 100 MCG/HR PAT TD SCH (22:50)
[2018-06-21 05:51] VITALS: BP 114/41
[2018-06-21] MEDS: POTASSIUM CHLORIDE 8 MEQ TAB PO SCH ×4 (06:31→21:55)
[2018-06-21] MEDS: ADEMPAS 2 MG PO SCH ×3 (06:31→21:55)
[2018-06-21] MEDS: LEVOTHYROXINE SODIUM 25 MCG TAB PO SCH (06:32)
[2018-06-21] MEDS: LEVOTHYROXINE SODIUM 100 MCG TAB PO SCH (06:32)
[2018-06-21 08:00] VITALS: BP 119/45
[2018-06-21] MEDS: Ensure Enlive Strawberry 8oz Bottle PO SCH ×2 (09:06→18:30)
[2018-06-21] MEDS: SODIUM CHLOR 0.9% PF (SALINE LOCK) 10ML VIAL/SYR IV SCH ×2 (10:00→21:55)
[2018-06-21] MEDS: DOCUSATE SOD 100 MG CAP PO SCH ×2 (10:01→21:55)
[2018-06-21] MEDS: ASPirin 81 mg TAB PO SCH (10:01)
[2018-06-21] MEDS: CLOPIDOGREL BISULFATE 75 MG TAB PO SCH (10:01)
[2018-06-21] MEDS: PANTOPRAZOLE 40 MG TAB PO SCH (10:01)
[2018-06-21] MEDS: LIDOCAINE 5% TOPICAL PATCH TOP SCH (10:02)
[2018-06-21] MEDS: DOBUTamine 1000MCG/ML 250 ML IV SCH (10:02)
[2018-06-21 12:00] VITALS: BP 115/44
[2018-06-21] MEDS: FUROSEMIDE INJECTION 100 MG in D5W 5% 90 ML IV SCH (12:01)
[2018-06-21 16:00] VITALS: BP 130/55
[2018-06-21] MEDS ORDERED: POTASSIUM CHL 20 Meq TABLET PO ONE (19:15)
[2018-06-21 22:00] VITALS: BP 117/36
[2018-06-21] MEDS ORDERED: FAMOTIDINE 20 MG TAB PO PRN (23:45)
[2018-06-22] MEDS: DOBUTamine 1000MCG/ML 250 ML IV SCH ×2 (01:54→18:05)
[2018-06-22 05:26] VITALS: BP 110/33
[2018-06-22] MEDS: ADEMPAS 2 MG PO SCH ×3 (06:40→21:39)
[2018-06-22] MEDS: POTASSIUM CHLORIDE 8 MEQ TAB PO SCH ×4 (06:41→21:39)
[2018-06-22] MEDS: LEVOTHYROXINE SODIUM 25 MCG TAB PO SCH (06:41)
[2018-06-22] MEDS: LEVOTHYROXINE SODIUM 100 MCG TAB PO SCH (06:41)
[2018-06-22] MEDS: FUROSEMIDE INJECTION 100 MG in D5W 5% 90 ML IV SCH (07:20)
[2018-06-22 08:41] VITALS: BP 103/30
[2018-06-22] MEDS: SODIUM CHLOR 0.9% PF (SALINE LOCK) 10ML VIAL/SYR IV SCH ×2 (08:45→21:38)
[2018-06-22] MEDS: Ensure Enlive Strawberry 8oz Bottle PO SCH ×2 (08:45→17:59)
[2018-06-22] MEDS: DOCUSATE SOD 100 MG CAP PO SCH ×2 (08:45→21:39)
[2018-06-22] MEDS: CLOPIDOGREL BISULFATE 75 MG TAB PO SCH (08:45)
[2018-06-22] MEDS: LIDOCAINE 5% TOPICAL PATCH TOP SCH (08:45)
[2018-06-22] MEDS: PANTOPRAZOLE 40 MG TAB PO SCH (08:45)
[2018-06-22] MEDS: ASPirin 81 mg TAB PO SCH (08:45)
[2018-06-22 09:25] VITALS: BP 103/30
[2018-06-22 13:00] VITALS: BP 106/41
[2018-06-22 17:00] VITALS: BP 110/30
[2018-06-22 22:00] VITALS: BP 118/51
[2018-06-23] MEDS: FUROSEMIDE INJECTION 100 MG in D5W 5% 90 ML IV SCH ×2 (02:57→22:24)
[2018-06-23 05:00] VITALS: BP 106/55
[2018-06-23] MEDS: LEVOTHYROXINE SODIUM 100 MCG TAB PO SCH (06:39)
[2018-06-23] MEDS: POTASSIUM CHLORIDE 8 MEQ TAB PO SCH ×4 (06:39→22:31)
[2018-06-23] MEDS: LEVOTHYROXINE SODIUM 25 MCG TAB PO SCH (06:39)
[2018-06-23] MEDS: ADEMPAS 2 MG PO SCH ×3 (06:39→22:32)
[2018-06-23 07:57] VITALS: BP 104/48
[2018-06-23 08:00] VITALS: BP 118/51
[2018-06-23] MEDS: PANTOPRAZOLE 40 MG TAB PO SCH (08:57)
[2018-06-23] MEDS: LIDOCAINE 5% TOPICAL PATCH TOP SCH (08:58)
[2018-06-23] MEDS: DOCUSATE SOD 100 MG CAP PO SCH ×2 (08:58→22:31)
[2018-06-23] MEDS: Ensure Enlive Strawberry 8oz Bottle PO SCH ×2 (08:58→18:37)
[2018-06-23] MEDS: ASPirin 81 mg TAB PO SCH (08:58)
[2018-06-23] MEDS: CLOPIDOGREL BISULFATE 75 MG TAB PO SCH (08:58)
[2018-06-23] MEDS: SODIUM CHLOR 0.9% PF (SALINE LOCK) 10ML VIAL/SYR IV SCH ×2 (08:58→22:34)
[2018-06-23] MEDS: MILK OF MAGNESIA 30ML SUSP PO PRN (09:42)
[2018-06-23] MEDS: DOBUTamine 1000MCG/ML 250 ML IV SCH (11:05)
[2018-06-23 11:55] VITALS: BP 103/46
[2018-06-23 17:00] VITALS: BP 115/55
[2018-06-23 22:00] VITALS: BP 120/41
[2018-06-23] MEDS: fentaNYL 100MCG/HR 100 MCG/HR PAT TD SCH (22:44)
[2018-06-24] MEDS: DOBUTamine 1000MCG/ML 250 ML IV SCH (04:08)
[2018-06-24 04:43] VITALS: BP 114/45
[2018-06-24] MEDS: POTASSIUM CHLORIDE 8 MEQ TAB PO SCH ×2 (06:53→12:20)
[2018-06-24] MEDS: LEVOTHYROXINE SODIUM 25 MCG TAB PO SCH (06:54)
[2018-06-24] MEDS: LEVOTHYROXINE SODIUM 100 MCG TAB PO SCH (06:55)
[2018-06-24] MEDS: ADEMPAS 2 MG PO SCH ×2 (06:55→14:00)
[2018-06-24] MEDS: Ensure Enlive Strawberry 8oz Bottle PO SCH (08:00)
[2018-06-24 09:00] VITALS: BP 111/36
[2018-06-24] MEDS: DOCUSATE SOD 100 MG CAP PO SCH (09:39)
[2018-06-24] MEDS: SODIUM CHLOR 0.9% PF (SALINE LOCK) 10ML VIAL/SYR IV SCH (09:39)
[2018-06-24] MEDS: CLOPIDOGREL BISULFATE 75 MG TAB PO SCH (09:39)
[2018-06-24] MEDS: LIDOCAINE 5% TOPICAL PATCH TOP SCH (09:39)
[2018-06-24] MEDS: ASPirin 81 mg TAB PO SCH (09:39)
[2018-06-24] MEDS: PANTOPRAZOLE 40 MG TAB PO SCH (09:39)
[2018-06-24 13:00] VITALS: BP 116/36
[2018-06-24] MEDS: fentaNYL 100MCG/HR 100 MCG/HR PAT TD SCH (16:34)
== END 2018-06-24 16:32 | disposition home health service (06) | DRG 682 ==
LOC: TELE-EAST 17:51
PROVIDERS: ADMIT Internal Medicine Cardiovascular Disease; ATTEND Internal Medicine Cardiovascular Disease
PROC: 05HF33Z Insertion of Infusion Device into Left Cephalic Vein, Percutaneous Approach (ICD-10-PCS; principal; 2018-06-08)
DX: N17.9 Acute kidney failure, unspecified (principal); I50.33 Acute on chronic diastolic (congestive) heart failure; M48.50XA Collapsed vertebra, not elsewhere classified, site unspecified, initial encounter for fracture; I11.0 Hypertensive heart disease with heart failure; I50.811 Acute right heart failure; I25.10 Atherosclerotic heart disease of native coronary artery without angina pectoris; E87.6 Hypokalemia; I87.2 Venous insufficiency (chronic) (peripheral); I27.20 Pulmonary hypertension, unspecified; I25.5 Ischemic cardiomyopathy; D64.9 Anemia, unspecified; G89.29 Other chronic pain; M41.9 Scoliosis, unspecified; M81.0 Age-related osteoporosis without current pathological fracture; Z95.1 Presence of aortocoronary bypass graft; Z95.5 Presence of coronary angioplasty implant and graft; Z88.1 Allergy status to other antibiotic agents; Z88.8 Allergy status to other drugs, medicaments and biological substances
CPT/HCPCS: 36415; 36569; 71045; 80048; 80053; 81001; 82565; 83735; 83880; 84484; 85025; 85610; 96365; 97110; 97116; 97163; 97530; A6257; C9113; G0463; J7060

== ENCOUNTER → 2018-06-08 | Outpatient (CLI) | payer MEDICARE, OTHER ==
[~2018-06-08] MED LIST changes: +FUROSEMIDE 40 MG/4 ML VIAL ONE; -FUROSEMIDE INJECTION 10 ML ONE; -FUROSEMIDE INJECTION 100 MG in SODIUM CHL 0.9% 100 ML IV SCH; +FUROSEMIDE INJECTION 250 MG in SODIUM CHL 0.9% 225 ML IV SCH; -POTASSIUM CHL 10 Meq TABLET PO ONE; -POTASSIUM CHL 20 Meq TABLET PO ONE
[2018-06-08 15:48] LABS: Basophils # (auto) 0.1 uL; Basophils % (auto) 0.8 % (0.0-2.0); Eosinophils # (auto) 0 uL; Eosinophils % (auto) 0.5 % (0.0-7.0); Hematocrit 35.2 % (36.0-46.0); Hemoglobin 11.7 g/dL (12.2-16.2); Lymphocytes # (auto) 1.1 uL; Lymphocytes % (auto) 16.1 % (10.0-50.0); Mean Corpuscular Hemoglobin 30.4 pg (28.0-32.0); Mean Corpuscular Hgb Conc. 33.2 g/dL (32.0-36.0); Mean Corpuscular Volume 91.6 fL (80.0-100.0); Monocytes # (auto) 0.8 uL; Monocytes % (auto) 11.9 % (0.0-12.0); Neutrophils # (auto) 4.9 uL; Neutrophils % (auto) 70.7 % (37.0-80.0); Nucleated Red Blood Cells % 0.1 %; Platelet Count (auto) 201 10^3/uL (140-450); Red Blood Cells 3.84 10^6/uL (4.0-5.20); Red Cell Distribution Width 15.9 % (11.8-14.3); White Blood Cell 6.9 10^3/uL (4.4-10.8)
[2018-06-08 16:02] LABS: Albumin 3.7 g/dL (3.4-5.0); BUN/Creatinine Ratio 30.8; Bilirubin, Total 0.6 mg/dL (0.2-1.0); Calcium 8.9 mg/dL (8.5-10.1); Magnesium 3.4 mg/dL (1.6-2.6); Total Protein 7.4 g/dL (6.4-8.2)
[2018-06-08 16:07] LABS: Potassium 5.7 mmol/L (3.5-5.1)
[2018-06-08 16:50] VITALS: BP 112/49
== END | disposition home or self-care (01) ==
LOC: CHF HDHVI 13:17
PROVIDERS: ATTEND Internal Medicine Cardiovascular Disease
DX: I27.21 Secondary pulmonary arterial hypertension (principal); E83.40 Disorders of magnesium metabolism, unspecified; D64.9 Anemia, unspecified; I13.0 Hypertensive heart and chronic kidney disease with heart failure and stage 1 through stage 4 chronic kidney disease, or unspecified chronic kidney disease; I50.43 Acute on chronic combined systolic (congestive) and diastolic (congestive) heart failure; N18.3 Chronic kidney disease, stage 3 (moderate); I25.10 Atherosclerotic heart disease of native coronary artery without angina pectoris; I25.2 Old myocardial infarction; J44.9 Chronic obstructive pulmonary disease, unspecified; E78.5 Hyperlipidemia, unspecified; E03.9 Hypothyroidism, unspecified; F41.9 Anxiety disorder, unspecified; Z79.01 Long term (current) use of anticoagulants; Z79.82 Long term (current) use of aspirin; Z95.1 Presence of aortocoronary bypass graft; Z95.810 Presence of automatic (implantable) cardiac defibrillator
CPT/HCPCS: 36415; 80053; 82565; 83735; 83880; 85025; 96365; G0463

== ENCOUNTER 2018-06-25 01:39 | Inpatient (IN) | payer MEDICARE, OTHER ==
[~2018-06-25] VITALS: Ht 157.5 cm; Wt 55.3 kg
[2018-06-25 02:00] VITALS: BP 112/85
[2018-06-25] MEDS ORDERED: HYDROcodone-ACET 10/325MG TAB PO ONE (04:53)
[2018-06-25] MEDS ORDERED: HYDROcodone-ACET 10/325MG TAB ONE (04:55)
[2018-06-25 08:00] VITALS: BP 99/40
[2018-06-25] MEDS: HYDROmorphone HCL 2 MG/ML VL IV PRN ×3 (08:25→22:34)
[2018-06-25 08:39] VITALS: BP 99/40
[2018-06-25] MEDS ORDERED: FUROSEMIDE 40 MG/4 ML VIAL IV SCH (10:00)
[2018-06-25] MEDS: PANTOPRAZOLE 40 MG TAB PO SCH (10:00)
[2018-06-25] MEDS: FUROSEMIDE 40 MG/4 ML VIAL IV SCH ×2 (10:00→18:00)
[2018-06-25] MEDS: DOBUTamine 1000MCG/ML 250 ML IV SCH ×2 (10:16→22:34)
[2018-06-25] MEDS: DOCUSATE SOD 100 MG CAP PO SCH ×2 (10:17→22:33)
[2018-06-25] MEDS: SODIUM CHLOR 0.9% PF (SALINE LOCK) 10ML VIAL/SYR IV SCH ×2 (10:17→22:33)
[2018-06-25] MEDS: FAMOTIDINE 20 MG TAB PO SCH ×2 (10:17→22:33)
[2018-06-25] MEDS: ASPirin 81 mg TAB PO SCH (10:17)
[2018-06-25] MEDS: ENOXAPARIN SOD 30 MG/0.3 ML SYRINGE SC SCH (10:18)
[2018-06-25] MEDS: LIDOCAINE 5% TOPICAL PATCH TOP SCH (10:20)
[2018-06-25] MEDS: fentaNYL 100MCG/HR 100 MCG/HR PAT TD SCH (10:20)
[2018-06-25] MEDS: POTASSIUM CHLORIDE 8 MEQ TAB PO SCH ×3 (12:00→22:33)
[2018-06-25 13:08] VITALS: BP 99/78
[2018-06-25] MEDS: ADEMPAS 2 MG PO SCH ×2 (14:00→22:00)
[2018-06-25 17:21] VITALS: BP 130/73
[2018-06-25] MEDS: Ensure Enlive Strawberry 8oz Bottle PO SCH (18:51)
[2018-06-25 22:00] VITALS: BP 103/54
[2018-06-26] VITALS (9 sets, daily range): BP systolic 99–137; BP diastolic 30–58
[2018-06-26] MEDS: FUROSEMIDE 40 MG/4 ML VIAL IV SCH ×2 (05:00→18:00)
[2018-06-26] MEDS: POTASSIUM CHLORIDE 8 MEQ TAB PO SCH ×4 (05:00→21:45)
[2018-06-26] MEDS: ADEMPAS 2 MG PO SCH ×3 (06:00→21:44)
[2018-06-26] MEDS: LEVOTHYROXINE SODIUM 50 MCG TAB PO SCH (07:00)
[2018-06-26 09:08] LABS: BUN/Creatinine Ratio 24.2; Calcium 7.7 mg/dL (8.5-10.1); Potassium 3.7 mmol/L (3.5-5.1)
[2018-06-26 10:18] LABS: Basophils # (auto) 0.1 uL; Basophils % (auto) 0.6 % (0.0-2.0); Eosinophils # (auto) 0 uL; Eosinophils % (auto) 0.2 % (0.0-7.0); Hematocrit 26.4 % (36.0-46.0); Hemoglobin 8.6 g/dL (12.2-16.2); Lymphocytes # (auto) 0.7 uL; Lymphocytes % (auto) 5.6 % (10.0-50.0); Mean Corpuscular Hemoglobin 30.3 pg (28.0-32.0); Mean Corpuscular Hgb Conc. 32.8 g/dL (32.0-36.0); Mean Corpuscular Volume 92.4 fL (80.0-100.0); Monocytes # (auto) 0.9 uL; Monocytes % (auto) 7.6 % (0.0-12.0); Neutrophils # (auto) 10.5 uL; Platelet Count (auto) 212 10^3/uL (140-450); Red Blood Cells 2.85 10^6/uL (4.0-5.20); Red Cell Distribution Width 16.4 % (11.8-14.3); White Blood Cell 12.3 10^3/uL (4.4-10.8)
[2018-06-26 10:20] LABS: INR 1.04 (0.9-1.15); Prothrombin Time 11.1 sec (9.27-12.13)
[2018-06-26] MEDS: ASPirin 81 mg TAB PO SCH (12:34)
[2018-06-26] MEDS: DOCUSATE SOD 100 MG CAP PO SCH ×2 (12:34→21:44)
[2018-06-26] MEDS: Ensure Enlive Strawberry 8oz Bottle PO SCH ×2 (12:34→18:36)
[2018-06-26] MEDS: SODIUM CHLOR 0.9% PF (SALINE LOCK) 10ML VIAL/SYR IV SCH (12:34)
[2018-06-26] MEDS: ENOXAPARIN SOD 30 MG/0.3 ML SYRINGE SC SCH (12:35)
[2018-06-26] MEDS: PANTOPRAZOLE 40 MG TAB PO SCH (12:35)
[2018-06-26] MEDS: LIDOCAINE 5% TOPICAL PATCH TOP SCH (12:35)
[2018-06-26] MEDS ORDERED: EPOETIN ALFA 10,000 UNIT/1 ML VIAL SC ONE (12:45)
[2018-06-26] MEDS: DOBUTamine 1000MCG/ML 250 ML IV SCH (21:17)
[2018-06-27 05:21] VITALS: BP 106/42
[2018-06-27 05:25] LABS: Basophils # (auto) 0.1 uL; Basophils % (auto) 0.5 % (0.0-2.0); Eosinophils # (auto) 0.1 uL; Eosinophils % (auto) 1.3 % (0.0-7.0); Hematocrit 28.4 % (36.0-46.0); Hemoglobin 9.7 g/dL (12.2-16.2); Lymphocytes # (auto) 0.9 uL; Lymphocytes % (auto) 8.7 % (10.0-50.0); Mean Corpuscular Hemoglobin 31.2 pg (28.0-32.0); Mean Corpuscular Volume 91.5 fL (80.0-100.0); Monocytes % (auto) 9.6 % (0.0-12.0); Neutrophils # (auto) 8.3 uL; Neutrophils % (auto) 79.9 % (37.0-80.0); Platelet Count (auto) 188 10^3/uL (140-450); Red Cell Distribution Width 16.1 % (11.8-14.3); White Blood Cell 10.4 10^3/uL (4.4-10.8)
[2018-06-27] MEDS: LEVOTHYROXINE SODIUM 50 MCG TAB PO SCH (05:55)
[2018-06-27] MEDS: POTASSIUM CHLORIDE 8 MEQ TAB PO SCH ×4 (05:55→22:00)
[2018-06-27] MEDS: ADEMPAS 2 MG PO SCH ×3 (05:55→22:08)
[2018-06-27] MEDS: FUROSEMIDE 40 MG/4 ML VIAL IV SCH ×2 (05:56→17:22)
[2018-06-27] MEDS: SODIUM CHLOR 0.9% PF (SALINE LOCK) 10ML VIAL/SYR IV SCH ×3 (05:56→22:08)
[2018-06-27 08:00] VITALS: BP 103/49
[2018-06-27] MEDS: Ensure Enlive Strawberry 8oz Bottle PO SCH ×2 (08:00→17:22)
[2018-06-27 09:07] VITALS: BP 103/49
[2018-06-27] MEDS: PANTOPRAZOLE 40 MG TAB PO SCH (11:00)
[2018-06-27] MEDS: DOCUSATE SOD 100 MG CAP PO SCH ×2 (11:00→22:08)
[2018-06-27] MEDS: ASPirin 81 mg TAB PO SCH (11:00)
[2018-06-27] MEDS: ENOXAPARIN SOD 30 MG/0.3 ML SYRINGE SC SCH (11:00)
[2018-06-27] MEDS: LIDOCAINE 5% TOPICAL PATCH TOP SCH (12:19)
[2018-06-27] MEDS: DOBUTamine 1000MCG/ML 250 ML IV SCH (12:20)
[2018-06-27] MEDS: HYDROcodone-ACET 10/325MG TAB PO PRN ×2 (12:21→22:23)
[2018-06-27 14:07] VITALS: BP 105/47
[2018-06-27 16:40] VITALS: BP 93/47
[2018-06-27 21:36] VITALS: BP 105/58
[2018-06-28 04:37] VITALS: BP 102/57
[2018-06-28] MEDS: DOBUTamine 1000MCG/ML 250 ML IV SCH ×2 (05:32→23:00)
[2018-06-28] MEDS: FUROSEMIDE 40 MG/4 ML VIAL IV SCH ×2 (06:06→17:59)
[2018-06-28] MEDS: POTASSIUM CHLORIDE 8 MEQ TAB PO SCH ×4 (06:06→21:11)
[2018-06-28] MEDS: ADEMPAS 2 MG PO SCH ×3 (06:07→23:01)
[2018-06-28] MEDS: HYDROcodone-ACET 10/325MG TAB PO PRN (06:15)
[2018-06-28] MEDS: LEVOTHYROXINE SODIUM 50 MCG TAB PO SCH (07:13)
[2018-06-28 07:16] LABS: Calcium 8.1 mg/dL (8.5-10.1); Potassium 4.4 mmol/L (3.5-5.1)
[2018-06-28] MEDS: Ensure Enlive Strawberry 8oz Bottle PO SCH ×2 (08:00→18:00)
[2018-06-28 08:15] VITALS: BP 102/45
[2018-06-28 08:23] VITALS: BP 102/45
[2018-06-28] MEDS: LIDOCAINE 5% TOPICAL PATCH TOP SCH ×2 (10:00→23:00)
[2018-06-28] MEDS: fentaNYL 100MCG/HR 100 MCG/HR PAT TD SCH (10:00)
[2018-06-28] MEDS: ENOXAPARIN SOD 30 MG/0.3 ML SYRINGE SC SCH (10:30)
[2018-06-28] MEDS: ASPirin 81 mg TAB PO SCH (10:30)
[2018-06-28] MEDS: DOCUSATE SOD 100 MG CAP PO SCH ×2 (10:30→21:11)
[2018-06-28] MEDS: PANTOPRAZOLE 40 MG TAB PO SCH (10:31)
[2018-06-28 12:29] VITALS: BP 107/43
[2018-06-28] MEDS: SODIUM CHLOR 0.9% PF (SALINE LOCK) 10ML VIAL/SYR IV SCH ×2 (12:35→23:01)
[2018-06-28 17:02] VITALS: BP 100/51
[2018-06-28 18:57] LABS: Urine Bacteria MANY /hpf (None Seen); Urine Blood Negative /uL (Negative); Urine Specific Gravity 1.015 (1.001-1.035); Urine WBC 25 /hpf (0 - 5)
[2018-06-28 22:00] VITALS: BP 123/46
[2018-06-29] VITALS (28 sets, daily range): BP systolic 110–138; BP diastolic 38–58
[2018-06-29] MEDS: HYDROmorphone HCL 2 MG/ML VL IV PRN ×4 (00:40→16:45)
[2018-06-29] MEDS: HYDROcodone-ACET 10/325MG TAB PO PRN (04:27)
[2018-06-29] MEDS: POTASSIUM CHLORIDE 8 MEQ TAB PO SCH ×4 (05:56→21:39)
[2018-06-29] MEDS: LEVOTHYROXINE SODIUM 50 MCG TAB PO SCH (05:56)
[2018-06-29] MEDS: ADEMPAS 2 MG PO SCH ×3 (05:57→21:40)
[2018-06-29] MEDS: FUROSEMIDE 40 MG/4 ML VIAL IV SCH ×2 (05:57→17:50)
[2018-06-29] MEDS: Ensure Enlive Strawberry 8oz Bottle PO SCH ×2 (08:00→18:00)
[2018-06-29] MEDS ORDERED: CLINDAMYCIN 600MG IV 50 ML IV ONE (09:18)
[2018-06-29] MEDS: DOCUSATE SOD 100 MG CAP PO SCH ×2 (09:36→21:40)
[2018-06-29] MEDS: SODIUM CHLOR 0.9% PF (SALINE LOCK) 10ML VIAL/SYR IV SCH ×2 (09:36→21:39)
[2018-06-29] MEDS: ENOXAPARIN SOD 30 MG/0.3 ML SYRINGE SC SCH (09:36)
[2018-06-29] MEDS: PANTOPRAZOLE 40 MG TAB PO SCH (09:36)
[2018-06-29] MEDS: ASPirin 81 mg TAB PO SCH (09:36)
[2018-06-29] MEDS ORDERED: fentaNYL CITRATE 5 ML ONE (09:59)
[2018-06-29] MEDS ORDERED: MIDAZOLAM HCL 1MG/1ML-2 ML VIAL ONE (09:59)
[2018-06-29] MEDS ORDERED: ETOMIDATE (2MG/ML) 20ML VIAL IV ONE (10:18)
[2018-06-29] MEDS ORDERED: ONDANSETRON HCL 4 MG/2 ML VIAL IV ONE (15:45)
[2018-06-29] MEDS ORDERED: hydrALAZINE HCL 20 MG/ML VL IV PRN (15:45)
[2018-06-29] MEDS ORDERED: ePHEDrine SULFATE 50 MG/ML AMP IV PRN (15:45)
[2018-06-29] MEDS ORDERED: HYDROmorphone HCL 2 MG/ML VL IV PRN (15:45)
[2018-06-29] MEDS: DOBUTamine 1000MCG/ML 250 ML IV SCH (20:02)
[2018-06-29 20:13] LABS: Basophils # (auto) 0 uL; Basophils % (auto) 0.2 % (0.0-2.0); Eosinophils # (auto) 0.3 uL; Eosinophils % (auto) 1.7 % (0.0-7.0); Hematocrit 32.4 % (36.0-46.0); Hemoglobin 10.7 g/dL (12.2-16.2); Lymphocytes % (auto) 5.9 % (10.0-50.0); Mean Corpuscular Hemoglobin 30.6 pg (28.0-32.0); Mean Corpuscular Hgb Conc. 33.2 g/dL (32.0-36.0); Mean Corpuscular Volume 92.3 fL (80.0-100.0); Monocytes # (auto) 1.4 uL; Monocytes % (auto) 8.9 % (0.0-12.0); Neutrophils # (auto) 13.6 uL; Neutrophils % (auto) 83.3 % (37.0-80.0); Platelet Count (auto) 260 10^3/uL (140-450); Red Blood Cells 3.51 10^6/uL (4.0-5.20); Red Cell Distribution Width 15.6 % (11.8-14.3); White Blood Cell 16.4 10^3/uL (4.4-10.8)
[2018-06-29 20:14] LABS: Albumin 2.4 g/dL (3.4-5.0); BUN/Creatinine Ratio 29.8; Bilirubin, Total 0.8 mg/dL (0.2-1.0); Calcium 7.6 mg/dL (8.5-10.1); Total Protein 6.3 g/dL (6.4-8.2)
[2018-06-29] MEDS: PIPERACILLIN-TAZOB 3.375GM 100 ML IV SCH (21:39)
[2018-06-29] MEDS: MILK OF MAGNESIA 30ML SUSP PO PRN (21:40)
[2018-06-29] MEDS: LIDOCAINE 5% TOPICAL PATCH TOP SCH (23:00)
[2018-06-30] VITALS (49 sets, daily range): BP systolic 89–142; BP diastolic 33–78
[2018-06-30] MEDS: HYDROmorphone HCL 2 MG/ML VL IV PRN ×2 (00:17→15:42)
[2018-06-30] MEDS ORDERED: POTASSIUM CHLORIDE 8 MEQ TAB PO ONE (05:55)
[2018-06-30] MEDS: POTASSIUM CHLORIDE 8 MEQ TAB PO SCH ×4 (06:05→22:36)
[2018-06-30] MEDS: PIPERACILLIN-TAZOB 3.375GM 100 ML IV SCH ×3 (06:05→22:35)
[2018-06-30] MEDS: ADEMPAS 2 MG PO SCH ×3 (06:10→22:45)
[2018-06-30] MEDS: FUROSEMIDE 40 MG/4 ML VIAL IV SCH ×2 (06:10→18:43)
[2018-06-30] MEDS: LEVOTHYROXINE SODIUM 50 MCG TAB PO SCH (06:38)
[2018-06-30] MEDS: ASPirin 81 mg TAB PO SCH (09:10)
[2018-06-30] MEDS: DOCUSATE SOD 100 MG CAP PO SCH ×2 (09:10→22:36)
[2018-06-30] MEDS: PANTOPRAZOLE 40 MG TAB PO SCH (09:10)
[2018-06-30] MEDS: ENOXAPARIN SOD 30 MG/0.3 ML SYRINGE SC SCH (09:10)
[2018-06-30] MEDS: HYDROcodone-ACET 10/325MG TAB PO PRN ×2 (09:11→22:59)
[2018-06-30] MEDS: Ensure Enlive Strawberry 8oz Bottle PO SCH ×2 (09:32→18:43)
[2018-06-30] MEDS: SODIUM CHLOR 0.9% PF (SALINE LOCK) 10ML VIAL/SYR IV SCH ×2 (12:35→22:35)
[2018-06-30] MEDS: DOBUTamine 1000MCG/ML 250 ML IV SCH (16:00)
[2018-06-30] MEDS: LIDOCAINE 5% TOPICAL PATCH TOP SCH (22:36)
[2018-07-01] MEDS: DOBUTamine 1000MCG/ML 250 ML IV SCH ×2 (02:56→07:17)
[2018-07-01] MEDS: ADEMPAS 2 MG PO SCH ×3 (05:08→22:08)
[2018-07-01] MEDS: PIPERACILLIN-TAZOB 3.375GM 100 ML IV SCH ×3 (05:08→22:08)
[2018-07-01] MEDS: FUROSEMIDE 40 MG/4 ML VIAL IV SCH ×2 (05:08→17:15)
[2018-07-01] MEDS: POTASSIUM CHLORIDE 8 MEQ TAB PO SCH ×4 (05:09→22:09)
[2018-07-01] MEDS: HYDROcodone-ACET 10/325MG TAB PO PRN ×3 (05:09→19:22)
[2018-07-01 05:52] VITALS: BP 123/54
[2018-07-01] MEDS: LEVOTHYROXINE SODIUM 50 MCG TAB PO SCH (06:42)
[2018-07-01] MEDS: Ensure Enlive Strawberry 8oz Bottle PO SCH ×2 (07:08→17:15)
[2018-07-01 08:00] VITALS: BP 109/44
[2018-07-01] MEDS: ASPirin 81 mg TAB PO SCH (10:15)
[2018-07-01] MEDS: PANTOPRAZOLE 40 MG TAB PO SCH (10:15)
[2018-07-01] MEDS: ENOXAPARIN SOD 30 MG/0.3 ML SYRINGE SC SCH (10:15)
[2018-07-01] MEDS: SODIUM CHLOR 0.9% PF (SALINE LOCK) 10ML VIAL/SYR IV SCH ×2 (10:15→22:09)
[2018-07-01] MEDS: DOCUSATE SOD 100 MG CAP PO SCH ×2 (10:15→22:09)
[2018-07-01] MEDS: fentaNYL 100MCG/HR 100 MCG/HR PAT TD SCH (10:16)
[2018-07-01 12:00] VITALS: BP 98/45
[2018-07-01 16:00] VITALS: BP 105/37
[2018-07-01 22:00] VITALS: BP 118/39
[2018-07-01] MEDS: LIDOCAINE 5% TOPICAL PATCH TOP SCH (22:09)
[2018-07-01 22:30] VITALS: BP 113/56
[2018-07-02] MEDS: DOBUTamine 1000MCG/ML 250 ML IV SCH ×2 (01:10→15:00)
[2018-07-02] MEDS: HYDROcodone-ACET 10/325MG TAB PO PRN ×2 (02:45→20:40)
[2018-07-02 05:26] VITALS: BP 113/42
[2018-07-02] MEDS: FUROSEMIDE 40 MG/4 ML VIAL IV SCH ×2 (06:20→17:50)
[2018-07-02] MEDS: ADEMPAS 2 MG PO SCH ×3 (06:20→22:20)
[2018-07-02] MEDS: PIPERACILLIN-TAZOB 3.375GM 100 ML IV SCH ×3 (06:21→22:20)
[2018-07-02] MEDS: POTASSIUM CHLORIDE 8 MEQ TAB PO SCH ×4 (06:21→22:19)
[2018-07-02] MEDS: LEVOTHYROXINE SODIUM 50 MCG TAB PO SCH (06:30)
[2018-07-02] MEDS: Ensure Enlive Strawberry 8oz Bottle PO SCH ×2 (07:19→17:51)
[2018-07-02 08:00] VITALS: BP 114/52
[2018-07-02] MEDS: DOCUSATE SOD 100 MG CAP PO SCH ×2 (10:28→22:19)
[2018-07-02] MEDS: PANTOPRAZOLE 40 MG TAB PO SCH (10:28)
[2018-07-02] MEDS: ASPirin 81 mg TAB PO SCH (10:28)
[2018-07-02] MEDS: ENOXAPARIN SOD 30 MG/0.3 ML SYRINGE SC SCH (10:28)
[2018-07-02] MEDS: SODIUM CHLOR 0.9% PF (SALINE LOCK) 10ML VIAL/SYR IV SCH ×2 (10:28→22:20)
[2018-07-02 12:40] VITALS: BP 106/44
[2018-07-02 16:58] VITALS: BP 113/51
[2018-07-02] MEDS ORDERED: LACTULOSE 20Gm/30ML SOLN PO PRN (17:00)
[2018-07-02] MEDS ORDERED: IPRATROPIUM BROM 0.5 MG/2.5ML INH SOL NEB PRN (17:00)
[2018-07-02] MEDS ORDERED: TESTOSTERONE CYPIONATE 200 MG/ML 1ML VIAL IM ONE (17:15)
[2018-07-02] MEDS: MILK OF MAGNESIA 30ML SUSP PO PRN (17:51)
[2018-07-02 22:00] VITALS: BP 114/54
[2018-07-02] MEDS: LIDOCAINE 5% TOPICAL PATCH TOP SCH (22:20)
[2018-07-03] VITALS (12 sets, daily range): BP systolic 110–124; BP diastolic 42–73
[2018-07-03] MEDS: POTASSIUM CHLORIDE 8 MEQ TAB PO SCH ×4 (05:58→22:00)
[2018-07-03] MEDS: PIPERACILLIN-TAZOB 3.375GM 100 ML IV SCH ×3 (05:58→22:00)
[2018-07-03] MEDS: FUROSEMIDE 40 MG/4 ML VIAL IV SCH ×2 (05:58→18:00)
[2018-07-03] MEDS: ADEMPAS 2 MG PO SCH ×3 (05:58→22:00)
[2018-07-03] MEDS: LEVOTHYROXINE SODIUM 50 MCG TAB PO SCH (05:59)
[2018-07-03 06:50] LABS: Basophils # (auto) 0.1 uL; Basophils % (auto) 0.5 % (0.0-2.0); Eosinophils # (auto) 0.4 uL; Hematocrit 24.9 % (36.0-46.0); Lymphocytes # (auto) 1.5 uL; Neutrophils # (auto) 9.7 uL; Neutrophils % (auto) 73.8 % (37.0-80.0); Nucleated Red Blood Cells % 0.1 %
[2018-07-03 06:51] LABS: Eosinophils % (auto) 3.1 % (0.0-7.0); Hemoglobin 8.4 g/dL (12.2-16.2); Lymphocytes % (auto) 11.5 % (10.0-50.0); Mean Corpuscular Hemoglobin 30.6 pg (28.0-32.0); Mean Corpuscular Hgb Conc. 33.6 g/dL (32.0-36.0); Mean Corpuscular Volume 91.1 fL (80.0-100.0); Monocytes # (auto) 1.5 uL; Monocytes % (auto) 11.1 % (0.0-12.0); Platelet Count (auto) 333 10^3/uL (140-450); Red Blood Cells 2.73 10^6/uL (4.0-5.20); Red Cell Distribution Width 15.6 % (11.8-14.3); White Blood Cell 13.2 10^3/uL (4.4-10.8)
[2018-07-03 07:08] LABS: Calcium 7.8 mg/dL (8.5-10.1); Potassium 3.9 mmol/L (3.5-5.1)
[2018-07-03] MEDS: HYDROcodone-ACET 10/325MG TAB PO PRN ×2 (07:24→23:18)
[2018-07-03] MEDS: Ensure Enlive Strawberry 8oz Bottle PO SCH ×2 (10:05→18:00)
[2018-07-03] MEDS: ASPirin 81 mg TAB PO SCH (10:06)
[2018-07-03] MEDS: SODIUM CHLOR 0.9% PF (SALINE LOCK) 10ML VIAL/SYR IV SCH ×2 (10:06→22:00)
[2018-07-03] MEDS: DOCUSATE SOD 100 MG CAP PO SCH ×2 (10:06→22:00)
[2018-07-03] MEDS: PANTOPRAZOLE 40 MG TAB PO SCH (10:06)
[2018-07-03] MEDS: ENOXAPARIN SOD 30 MG/0.3 ML SYRINGE SC SCH (10:06)
[2018-07-03 20:18] LABS: Hematocrit 33.5 % (36.0-46.0); Hemoglobin 11.2 g/dL (12.2-16.2)
[2018-07-03] MEDS: LIDOCAINE 5% TOPICAL PATCH TOP SCH ×2 (22:00→22:30)
[2018-07-04] MEDS: DOBUTamine 1000MCG/ML 250 ML IV SCH ×2 (00:54→17:35)
[2018-07-04 05:00] VITALS: BP 110/44
[2018-07-04] MEDS: PIPERACILLIN-TAZOB 3.375GM 100 ML IV SCH ×3 (05:26→22:14)
[2018-07-04] MEDS: POTASSIUM CHLORIDE 8 MEQ TAB PO SCH ×4 (05:27→22:15)
[2018-07-04] MEDS: ADEMPAS 2 MG PO SCH ×3 (05:27→22:15)
[2018-07-04] MEDS: FUROSEMIDE 40 MG/4 ML VIAL IV SCH ×2 (05:28→17:36)
[2018-07-04] MEDS: LEVOTHYROXINE SODIUM 50 MCG TAB PO SCH (06:16)
[2018-07-04 06:18] LABS: Basophils # (auto) 0.1 uL; Basophils % (auto) 0.9 % (0.0-2.0); Eosinophils # (auto) 0.4 uL; Eosinophils % (auto) 3.5 % (0.0-7.0); Hematocrit 32.1 % (36.0-46.0); Hemoglobin 10.9 g/dL (12.2-16.2); Lymphocytes # (auto) 1.6 uL; Lymphocytes % (auto) 15.4 % (10.0-50.0); Mean Corpuscular Hemoglobin 30.4 pg (28.0-32.0); Mean Corpuscular Volume 89.4 fL (80.0-100.0); Monocytes # (auto) 1.1 uL; Monocytes % (auto) 10.8 % (0.0-12.0); Neutrophils # (auto) 7.1 uL; Neutrophils % (auto) 69.4 % (37.0-80.0); Nucleated Red Blood Cells % 0.1 %; Platelet Count (auto) 360 10^3/uL (140-450); Red Blood Cells 3.58 10^6/uL (4.0-5.20); Red Cell Distribution Width 16.1 % (11.8-14.3); White Blood Cell 10.3 10^3/uL (4.4-10.8)
[2018-07-04 06:37] LABS: BUN/Creatinine Ratio 20.3; Calcium 7.9 mg/dL (8.5-10.1); Potassium 3.7 mmol/L (3.5-5.1)
[2018-07-04 09:00] VITALS: BP 127/53
[2018-07-04] MEDS: ENOXAPARIN SOD 30 MG/0.3 ML SYRINGE SC SCH (09:19)
[2018-07-04] MEDS: ASPirin 81 mg TAB PO SCH (09:20)
[2018-07-04] MEDS: DOCUSATE SOD 100 MG CAP PO SCH ×3 (09:20→22:15)
[2018-07-04] MEDS: SODIUM CHLOR 0.9% PF (SALINE LOCK) 10ML VIAL/SYR IV SCH ×2 (09:20→22:14)
[2018-07-04] MEDS: PANTOPRAZOLE 40 MG TAB PO SCH (09:20)
[2018-07-04] MEDS: Ensure Enlive Strawberry 8oz Bottle PO SCH ×2 (09:21→17:36)
[2018-07-04] MEDS: fentaNYL 100MCG/HR 100 MCG/HR PAT TD SCH (10:39)
[2018-07-04] MEDS: HYDROcodone-ACET 10/325MG TAB PO PRN (12:38)
[2018-07-04 13:23] VITALS: BP 114/52
[2018-07-04 17:00] VITALS: BP 110/53
[2018-07-04 22:00] VITALS: BP 127/52
[2018-07-04] MEDS: LIDOCAINE 5% TOPICAL PATCH TOP SCH (22:16)
[2018-07-05] MEDS: HYDROcodone-ACET 10/325MG TAB PO PRN (02:46)
[2018-07-05 05:00] VITALS: BP 117/59
[2018-07-05] MEDS: PIPERACILLIN-TAZOB 3.375GM 100 ML IV SCH ×3 (06:13→21:26)
[2018-07-05] MEDS: ADEMPAS 2 MG PO SCH ×3 (06:13→21:27)
[2018-07-05] MEDS: POTASSIUM CHLORIDE 8 MEQ TAB PO SCH ×4 (06:13→21:27)
[2018-07-05] MEDS: FUROSEMIDE 40 MG/4 ML VIAL IV SCH ×2 (06:13→18:07)
[2018-07-05] MEDS: LEVOTHYROXINE SODIUM 50 MCG TAB PO SCH (06:14)
[2018-07-05 08:42] LABS: Hemoglobin 11.4 g/dL (12.2-16.2)
[2018-07-05 09:00] VITALS: BP 120/51
[2018-07-05] MEDS: ASPirin 81 mg TAB PO SCH (09:51)
[2018-07-05] MEDS: PANTOPRAZOLE 40 MG TAB PO SCH (09:51)
[2018-07-05] MEDS: ENOXAPARIN SOD 30 MG/0.3 ML SYRINGE SC SCH (09:51)
[2018-07-05] MEDS: DOCUSATE SOD 100 MG CAP PO SCH ×2 (09:54→21:27)
[2018-07-05] MEDS: SODIUM CHLOR 0.9% PF (SALINE LOCK) 10ML VIAL/SYR IV SCH ×2 (10:04→21:26)
[2018-07-05] MEDS: Ensure Enlive Strawberry 8oz Bottle PO SCH ×2 (10:04→18:08)
[2018-07-05] MEDS: DOBUTamine 1000MCG/ML 250 ML IV SCH (11:37)
[2018-07-05 12:00] VITALS: BP 119/52
[2018-07-05] MEDS: LOPERAMIDE HCL 2 MG CAP PO PRN (15:32)
[2018-07-05 16:28] VITALS: BP 118/62
[2018-07-05] MEDS: LIDOCAINE 5% TOPICAL PATCH TOP SCH (21:28)
[2018-07-05 22:00] VITALS: BP 117/49
[2018-07-06] MEDS: DOBUTamine 1000MCG/ML 250 ML IV SCH ×2 (04:11→22:16)
[2018-07-06] MEDS: POTASSIUM CHLORIDE 8 MEQ TAB PO SCH ×4 (05:16→22:17)
[2018-07-06] MEDS: ADEMPAS 2 MG PO SCH ×3 (05:16→22:16)
[2018-07-06] MEDS: PIPERACILLIN-TAZOB 3.375GM 100 ML IV SCH ×3 (05:16→22:15)
[2018-07-06 05:45] VITALS: BP 96/63
[2018-07-06] MEDS: LEVOTHYROXINE SODIUM 50 MCG TAB PO SCH (06:16)
[2018-07-06] MEDS: FUROSEMIDE 40 MG/4 ML VIAL IV SCH ×2 (06:16→17:21)
[2018-07-06] MEDS: Ensure Enlive Strawberry 8oz Bottle PO SCH ×2 (08:00→17:30)
[2018-07-06 09:00] VITALS: BP 113/49
[2018-07-06] MEDS: PANTOPRAZOLE 40 MG TAB PO SCH (09:09)
[2018-07-06] MEDS: SODIUM CHLOR 0.9% PF (SALINE LOCK) 10ML VIAL/SYR IV SCH ×2 (09:12→22:16)
[2018-07-06] MEDS: ASPirin 81 mg TAB PO SCH (09:13)
[2018-07-06] MEDS: DOCUSATE SOD 100 MG CAP PO SCH ×2 (09:13→22:00)
[2018-07-06] MEDS: ENOXAPARIN SOD 30 MG/0.3 ML SYRINGE SC SCH (09:15)
[2018-07-06] MEDS: LOPERAMIDE HCL 2 MG CAP PO PRN ×3 (11:34→23:06)
[2018-07-06 13:00] VITALS: BP 100/38
[2018-07-06 17:00] VITALS: BP 107/43
[2018-07-06] MEDS: HYDROcodone-ACET 10/325MG TAB PO PRN (20:25)
[2018-07-06 22:02] VITALS: BP 114/50
[2018-07-06] MEDS: LIDOCAINE 5% TOPICAL PATCH TOP SCH (22:53)
[2018-07-07 05:13] VITALS: BP 108/42
[2018-07-07] MEDS: FUROSEMIDE 40 MG/4 ML VIAL IV SCH ×2 (06:12→18:00)
[2018-07-07] MEDS: POTASSIUM CHLORIDE 8 MEQ TAB PO SCH ×3 (06:13→18:00)
[2018-07-07] MEDS: PIPERACILLIN-TAZOB 3.375GM 100 ML IV SCH ×2 (06:13→14:30)
[2018-07-07] MEDS: ADEMPAS 2 MG PO SCH ×2 (06:13→14:30)
[2018-07-07] MEDS: LEVOTHYROXINE SODIUM 50 MCG TAB PO SCH (06:14)
[2018-07-07 09:00] VITALS: BP 113/59
[2018-07-07] MEDS: DOCUSATE SOD 100 MG CAP PO SCH (10:00)
[2018-07-07] MEDS: PANTOPRAZOLE 40 MG TAB PO SCH (10:22)
[2018-07-07] MEDS: ASPirin 81 mg TAB PO SCH (10:22)
[2018-07-07] MEDS: SODIUM CHLOR 0.9% PF (SALINE LOCK) 10ML VIAL/SYR IV SCH (10:23)
[2018-07-07] MEDS: Ensure Enlive Strawberry 8oz Bottle PO SCH ×2 (10:23→18:57)
[2018-07-07] MEDS: LOPERAMIDE HCL 2 MG CAP PO PRN ×2 (10:29→20:17)
[2018-07-07 13:03] VITALS: BP 116/60
[2018-07-07] MEDS: DOBUTamine 1000MCG/ML 250 ML IV SCH (15:14)
[2018-07-07 17:00] VITALS: BP 120/62
== END 2018-07-07 21:28 | DRG 469 ==
LOC: WEST WING 01:39 → ICU WEST 06-29 15:17 → TELE-CENTR 06-30 18:35
PROVIDERS: ADMIT Internal Medicine Cardiovascular Disease; ATTEND Internal Medicine Cardiovascular Disease
PROC: 0LS30ZZ Reposition Right Upper Arm Tendon, Open Approach (ICD-10-PCS; 2018-06-29)
PROC: 0MBL0ZZ Excision of Right Hip Bursa and Ligament, Open Approach (ICD-10-PCS; 2018-06-29)
PROC: 0RRJ0J6 Replacement of Right Shoulder Joint with Synthetic Substitute, Humeral Surface, Open Approach (ICD-10-PCS; principal; 2018-06-29 09:41)
PROC: 0SRR0JA Replacement of Right Hip Joint, Femoral Surface with Synthetic Substitute, Uncemented, Open Approach (ICD-10-PCS; 2018-06-29 09:41)
PROC: 30233N1 Transfusion of Nonautologous Red Blood Cells into Peripheral Vein, Percutaneous Approach (ICD-10-PCS; 2018-07-03)
DX: S72.001A Fracture of unspecified part of neck of right femur, initial encounter for closed fracture (principal); E43 Unspecified severe protein-calorie malnutrition; S42.201A Unspecified fracture of upper end of right humerus, initial encounter for closed fracture; M48.50XA Collapsed vertebra, not elsewhere classified, site unspecified, initial encounter for fracture; I50.32 Chronic diastolic (congestive) heart failure; I11.0 Hypertensive heart disease with heart failure; M81.0 Age-related osteoporosis without current pathological fracture; D64.9 Anemia, unspecified; I25.10 Atherosclerotic heart disease of native coronary artery without angina pectoris; I27.20 Pulmonary hypertension, unspecified; I48.0 Paroxysmal atrial fibrillation; M75.21 Bicipital tendinitis, right shoulder; I27.21 Secondary pulmonary arterial hypertension; M75.101 Unspecified rotator cuff tear or rupture of right shoulder, not specified as traumatic; M19.90 Unspecified osteoarthritis, unspecified site; M41.9 Scoliosis, unspecified; Z68.22 Body mass index [BMI] 22.0-22.9, adult; Z95.5 Presence of coronary angioplasty implant and graft; Z95.1 Presence of aortocoronary bypass graft; Z88.8 Allergy status to other drugs, medicaments and biological substances
CPT/HCPCS: 36415; 71045; 73020; 73501; 80048; 80053; 81001; 85014; 85018; 85025; 85610; 86850; 86900; 86901; 86920; 87081; 92610; 93005; 93306; 94640; 97110; 97116; 97163; 97530; A6257; C1713; C1776; J0885; J1071; J2250; J2543; J3490

== ENCOUNTER → 2018-12-06 | Outpatient (CLI) | payer MEDICARE, OTHER ==
[~2018-12-06] MED LIST changes: +FUROSEMIDE 20 MG/2 ML VIAL ONE; +FUROSEMIDE 40 MG/4 ML VIAL IV ONE; +FUROSEMIDE INJECTION 10 ML ONE; +POTASSIUM CHL 10 Meq TABLET PO ONE; +POTASSIUM CHL 20 Meq TABLET PO ONE
[2018-12-06 11:30] VITALS: BP 104/42
[2018-12-06 12:15] VITALS: BP 113/44
--- NOTE | 2018-12-06 12:15 | NUR ---
IN TO CLINIC AFTER SEEING DR CESPEDES WITH ORDERS. WHEEL CHAIR BOUND BUT ABLE TO DO INDEPENDENT TRANSFER TO CHAIR. SIGNIFICANT EDEMA TO BILATERAL LOWER EXTREMITIES, LEFT IS GREATER THAN RIGHT. VS WNL PER PATIENT. DAUGHTER IN ATTENDANCE. MEDICATED PER ORDER WITH BUTTERFLY INSERTION. TOLERATED WELL. POST INJECTION VITALS OBTAINED. WNL. Discharge Instructions See e-MAR for any mediations given with this visit. Patient education given on disease process. Patient verbalized understanding. Previous labs reviewed. Patient discharged in stable condition with after care instructions and follow up appointment. MEDICATION ADMINISTRATION LASIX 120 MG IVP AT 1200 POTASSIUM 30 MEQ PO AT 1205
== END | disposition home or self-care (01) ==
LOC: CHF HDHVI 11:33
PROVIDERS: ATTEND Internal Medicine Cardiovascular Disease
DX: I13.0 Hypertensive heart and chronic kidney disease with heart failure and stage 1 through stage 4 chronic kidney disease, or unspecified chronic kidney disease (principal); I50.42 Chronic combined systolic (congestive) and diastolic (congestive) heart failure; N18.3 Chronic kidney disease, stage 3 (moderate); I27.21 Secondary pulmonary arterial hypertension; R60.0 Localized edema; I25.10 Atherosclerotic heart disease of native coronary artery without angina pectoris; I48.0 Paroxysmal atrial fibrillation; I25.2 Old myocardial infarction; M81.0 Age-related osteoporosis without current pathological fracture; E43 Unspecified severe protein-calorie malnutrition; G89.29 Other chronic pain; J44.9 Chronic obstructive pulmonary disease, unspecified; E78.5 Hyperlipidemia, unspecified; E03.9 Hypothyroidism, unspecified; E78.00 Pure hypercholesterolemia, unspecified; M19.071 Primary osteoarthritis, right ankle and foot; M17.11 Unilateral primary osteoarthritis, right knee; M10.9 Gout, unspecified; M48.02 Spinal stenosis, cervical region; F41.9 Anxiety disorder, unspecified; Z95.5 Presence of coronary angioplasty implant and graft; Z79.01 Long term (current) use of anticoagulants; Z79.899 Other long term (current) drug therapy; Z95.810 Presence of automatic (implantable) cardiac defibrillator; Z79.82 Long term (current) use of aspirin; Z86.73 Personal history of transient ischemic attack (TIA), and cerebral infarction without residual deficits
CPT/HCPCS: 96374; G0463; J1940

== ENCOUNTER → 2019-01-17 | Outpatient (CLI) | payer MEDICARE, OTHER ==
[~2019-01-17] MED LIST changes: -FUROSEMIDE 20 MG/2 ML VIAL ONE; -FUROSEMIDE 40 MG/4 ML VIAL IV ONE; -FUROSEMIDE INJECTION 10 ML ONE; -POTASSIUM CHL 10 Meq TABLET PO ONE; -POTASSIUM CHL 20 Meq TABLET PO ONE
[2019-01-17 16:29] LABS: Potassium 3.9 mmol/L (3.5-5.1); Urine Blood Negative /uL (Negative); Urine Specific Gravity 1.016 (1.001-1.035)
[2019-01-17 16:35] LABS: Basophils # (auto) 0.1 uL; Eosinophils # (auto) 0.1 uL; Hematocrit 40.5 % (36.0-46.0); Hemoglobin 13.2 g/dL (12.2-16.2); Lymphocytes # (auto) 1.2 uL; Lymphocytes % (auto) 17.7 % (10.0-50.0); Mean Corpuscular Hemoglobin 31.4 pg (28.0-32.0); Mean Corpuscular Hgb Conc. 32.6 g/dL (32.0-36.0); Mean Corpuscular Volume 96.6 fL (80.0-100.0); Monocytes # (auto) 0.6 uL; Monocytes % (auto) 8.4 % (0.0-12.0); Neutrophils # (auto) 4.9 uL; Neutrophils % (auto) 70.9 % (37.0-80.0); Nucleated Red Blood Cells % 0.3 %; Platelet Count (auto) 232 10^3/uL (140-450); Red Cell Distribution Width 13.4 % (11.8-14.3)
[2019-01-17 16:38] LABS: BUN/Creatinine Ratio 15.4; Calcium 9.2 mg/dL (8.5-10.1)
== END | disposition home or self-care (01) ==
LOC: CHF HDHVI 12:09
PROVIDERS: ATTEND Internal Medicine Cardiovascular Disease
DX: N39.0 Urinary tract infection, site not specified (principal); D64.9 Anemia, unspecified; I11.0 Hypertensive heart disease with heart failure; I50.9 Heart failure, unspecified
CPT/HCPCS: 36415; 80048; 81003; 85025; 87086; 87088; 87186

== ENCOUNTER → 2019-01-20 | Outpatient (CLI) | payer MEDICARE, OTHER | END | disposition home or self-care (01) | LOC: Rad HDHVI 12:50 | PROVIDERS: ATTEND Internal Medicine Cardiovascular Disease | DX: I07.1 Rheumatic tricuspid insufficiency (principal); I50.23 Acute on chronic systolic (congestive) heart failure; I25.5 Ischemic cardiomyopathy | CPT/HCPCS: 93306 ==

== ENCOUNTER → 2019-02-02 | Outpatient (CLI) | payer MEDICARE, OTHER ==
[2019-02-02 16:14] LABS: Urine Blood Negative /uL (Negative); Urine Specific Gravity 1.015 (1.001-1.035)
== END | disposition home or self-care (01) ==
LOC: LAB 11:22
PROVIDERS: ATTEND Internal Medicine Cardiovascular Disease
DX: N39.0 Urinary tract infection, site not specified (principal)
CPT/HCPCS: 81003

== ENCOUNTER → 2019-03-16 | Outpatient (CLI) | payer MEDICARE, OTHER ==
[2019-03-16 16:06] LABS: Potassium 4.1 mmol/L (3.5-5.1)
[2019-03-16 16:11] LABS: Albumin 4.2 g/dL (3.4-5.0); BUN/Creatinine Ratio 21.9; Bilirubin, Total 0.6 mg/dL (0.2-1.0); Calcium 9.1 mg/dL (8.5-10.1); Total Protein 8.2 g/dL (6.4-8.2)
== END | disposition home or self-care (01) ==
LOC: LAB 11:13
PROVIDERS: ATTEND Internal Medicine Cardiovascular Disease
DX: I11.0 Hypertensive heart disease with heart failure (principal); I50.23 Acute on chronic systolic (congestive) heart failure
CPT/HCPCS: 36415; 80053; 83880

== ENCOUNTER → 2019-09-14 | Outpatient (CLI) | payer MEDICARE, OTHER ==
[~2019-09-14] MED LIST changes: +ASPI-404 PO; -ASPI81TA27 PO; -HYDR-4683 PO; +HYDR-4833 PO; +POTA-220 PO; -POTA20TA53 PO
[2019-09-14 12:11] LABS: Basophils # (auto) 0.1 uL; Basophils % (auto) 0.9 % (0.0-2.0); Eosinophils # (auto) 0.1 uL; Eosinophils % (auto) 1.9 % (0.0-7.0); Hematocrit 41.4 % (36.0-46.0); Hemoglobin 13.8 g/dL (12.2-16.2); Lymphocytes # (auto) 1.3 uL; Lymphocytes % (auto) 19.1 % (10.0-50.0); Mean Corpuscular Hemoglobin 31.2 pg (28.0-32.0); Mean Corpuscular Hgb Conc. 33.3 g/dL (32.0-36.0); Mean Corpuscular Volume 93.8 fL (80.0-100.0); Monocytes # (auto) 0.5 uL; Monocytes % (auto) 7.4 % (0.0-12.0); Neutrophils # (auto) 4.9 uL; Neutrophils % (auto) 70.7 % (37.0-80.0); Platelet Count (auto) 187 10^3/uL (140-450); Red Blood Cells 4.41 10^6/uL (4.0-5.20); Red Cell Distribution Width 13.7 % (11.8-14.3)
[2019-09-14 12:16] LABS: Urine Blood Negative /uL (Negative); Urine Specific Gravity 1.014 (1.001-1.035)
[2019-09-14 12:38] LABS: Albumin 4.2 g/dL (3.4-5.0); BUN/Creatinine Ratio 20.1; Bilirubin, Total 0.6 mg/dL (0.2-1.0); Calcium 8.9 mg/dL (8.5-10.1); Total Protein 8.3 g/dL (6.4-8.2)
[2019-09-14 12:40] LABS: Free T4 (Free Thyroxine) 1.94 ng/dL (0.89-1.76)
== END | disposition home or self-care (01) ==
LOC: LAB 10:31
PROVIDERS: ATTEND Internal Medicine Cardiovascular Disease
DX: E03.9 Hypothyroidism, unspecified (principal); K90.9 Intestinal malabsorption, unspecified; Z79.899 Other long term (current) drug therapy; N39.0 Urinary tract infection, site not specified; D51.9 Vitamin B12 deficiency anemia, unspecified
CPT/HCPCS: 36415; 80053; 80061; 81003; 82306; 82607; 83036; 84439; 84443; 85025

== ENCOUNTER → 2019-11-08 | Outpatient (CLI) | payer MEDICARE, OTHER ==
[~2019-11-08] VITALS: Ht 30.5 cm; Wt 47.3 kg
[~2019-11-08] MED LIST changes: +CYANOCOBALAMIN (B-12) 1000 MCG/1 ML VIAL IM ONE; +CYANOCOBALAMIN (B-12) 1000 MCG/1 ML VIAL ONE; +KETOROLAC TROMETH 15 mg/ml 1ML VL IM ONE; +KETOROLAC TROMETH 60MG/2ML VIAL ONE
[2019-11-08 10:38] VITALS: BP 121/40
[2019-11-08 11:15] VITALS: BP 126/63
--- NOTE | 2019-11-08 11:15 | NUR ---
[facility] Discharge Instructions See e-MAR for any mediations given with this visit. Patient education given on disease process. Patient verbalized understanding. Previous labs reviewed. Patient discharged in stable condition with after care instructions and follow up appointment. NOTE B12 IM L DELTOID ADMIN BY AARON NIEVES. TORADOL IM L GLUTE ADMIN BY AARON NIEVES.
== END | disposition home or self-care (01) ==
LOC: CHF HDHVI 10:43
PROVIDERS: ATTEND Internal Medicine Cardiovascular Disease
DX: I27.21 Secondary pulmonary arterial hypertension (principal); M81.0 Age-related osteoporosis without current pathological fracture; R53.1 Weakness; M54.9 Dorsalgia, unspecified; I11.0 Hypertensive heart disease with heart failure; I50.9 Heart failure, unspecified; E78.5 Hyperlipidemia, unspecified; Z79.899 Other long term (current) drug therapy; Z95.1 Presence of aortocoronary bypass graft
CPT/HCPCS: 72070; 96372; G0463; J1885; J3420

== ENCOUNTER 2019-11-12 21:34 | Emergency (ER) | payer MEDICARE, OTHER ==
[~2019-11-12] VITALS: Ht 160 cm; Wt 49.9 kg
[~2019-11-12 21:34] MED LIST changes: -CYANOCOBALAMIN (B-12) 1000 MCG/1 ML VIAL IM ONE; -CYANOCOBALAMIN (B-12) 1000 MCG/1 ML VIAL ONE; -KETOROLAC TROMETH 15 mg/ml 1ML VL IM ONE; -KETOROLAC TROMETH 60MG/2ML VIAL ONE
[2019-11-12 22:35] LABS: Basophils # (auto) 0.1 uL; Basophils % (auto) 1.1 % (0.0-2.0); Eosinophils # (auto) 0.4 uL; Hematocrit 35.5 % (36.0-46.0); Hemoglobin 12.2 g/dL (12.2-16.2); Lymphocytes # (auto) 1.1 uL; Lymphocytes % (auto) 11.2 % (10.0-50.0); Mean Corpuscular Hemoglobin 31.4 pg (28.0-32.0); Mean Corpuscular Hgb Conc. 34.2 g/dL (32.0-36.0); Mean Corpuscular Volume 91.8 fL (80.0-100.0); Monocytes % (auto) 10.3 % (0.0-12.0); Neutrophils % (auto) 73.4 % (37.0-80.0); Platelet Count (auto) 215 10^3/uL (140-450); Red Blood Cells 3.87 10^6/uL (4.0-5.20); Red Cell Distribution Width 13.3 % (11.8-14.3); White Blood Cell 9.5 10^3/uL (4.4-10.8)
[2019-11-12 22:51] LABS: Urine Bacteria NONE SEEN /hpf (None Seen); Urine Blood Negative /uL (Negative); Urine Hyaline Cast MANY /lpf (0 - 2); Urine Specific Gravity 1.009 (1.001-1.035); Urine WBC <1 /hpf (0 - 5)
[2019-11-12 22:57] LABS: Acetaminophen 11.3 ug/mL (10-30); Alanine Aminotransferase 30 U/L (13-56); Albumin 3.8 g/dL (3.4-5.0); Anion Gap 6 (5-15); Blood Alcohol < 3.0 mg/dL (0-5); Blood Urea Nitrogen 32 mg/dL (7-18); Carbon Dioxide 27 mmol/L (21-32); Chloride 106 mmol/L (98-107); Glucose 122 mg/dL (74-106); Magnesium 3.1 mg/dL (1.6-2.6); Potassium 4.2 mmol/L (3.5-5.1); Salicylate < 1.7 mg/dL (2.8-20.0); Sodium 139 mmol/L (136-145)
[2019-11-12 23:00] LABS: Alkaline Phosphatase 149 U/L (45-117); Aspartate Aminotransferase 26 U/L (15-37); BUN/Creatinine Ratio 20.8; Bilirubin, Total 0.5 mg/dL (0.2-1.0); GFR African American 41 mL/min; GFR Non-African American 34 mL/min; Total Protein 7.7 g/dL (6.4-8.2)
[2019-11-12 23:12] LABS: Alcohol, Urine < 3.0 mg/dL (0-5); Amphetamine Screen, Urine NEGATIVE (NEGATIVE); Barbiturate Scree,Urine NEGATIVE (NEGATIVE); Benzodiazephine Screen, Urine NEGATIVE (NEGATIVE); Cocaine Screen, Urine NEGATIVE (NEGATIVE); Opiate Scree,Urine POSITIVE (NEGATIVE); Phencyclidine Screen, Urine NEGATIVE (NEGATIVE)
[2019-11-12 23:20] LABS: Cannabinoid Screen, Urine POSITIVE (NEGATIVE)
[2019-11-13 01:21] VITALS: BP 123/41
== END 2019-11-13 01:21 | disposition home or self-care (01) ==
LOC: EDBD 21:34 → ER 21:37
DX: T42.1X1A Poisoning by iminostilbenes, accidental (unintentional), initial encounter (principal); M54.9 Dorsalgia, unspecified; I11.0 Hypertensive heart disease with heart failure; I50.9 Heart failure, unspecified; E78.5 Hyperlipidemia, unspecified; Z98.61 Coronary angioplasty status; Z95.1 Presence of aortocoronary bypass graft; Z88.1 Allergy status to other antibiotic agents; Z88.6 Allergy status to analgesic agent; Z88.8 Allergy status to other drugs, medicaments and biological substances; Z79.899 Other long term (current) drug therapy; Y92.89 Other specified places as the place of occurrence of the external cause
CPT/HCPCS: 36415; 71045; 80053; 80307; 80320; 80329; 81001; 83735; 85025; 93005

== ENCOUNTER → 2019-11-16 | Outpatient (CLI) | payer MEDICARE, OTHER ==
[~2019-11-16] MED LIST changes: +IOHEXOL 350 MG/ML 100ML IJ ONE; +SODIUM CHLORIDE 0.9% 500 ML IV ONE
[2019-11-16 16:35] VITALS: BP 147/56
--- NOTE | 2019-11-16 16:35 | NUR ---
[facility] PT ARRIVED FROM THE BACK OFFICE FOR CTA OF THE CHEST. BUN CREA ELEVATED HYDRATION ORDERED. PT VSS 0 DISTRESS, A/O X 4
--- NOTE | 2019-11-16 17:00 | NUR ---
IV insertion IV access obtained, via clean sterile technique by inserting 20 gauge catheter at after attempt(s). IV secured properly. No trauma to site. Patient tolerated procedure well.
[2019-11-16 18:20] VITALS: BP 140/38
--- NOTE | 2019-11-16 18:21 | NUR ---
IV removal IV DC'd with sterile technique, catheter fully intact. Pressure dressing applied to site. Patient tolerated procedure well. Discharged with aftercare instructions per MD. NOTE: BY AARON NIEVES
--- NOTE | 2019-11-16 18:25 | NUR ---
Discharge Instructions See e-MAR for any mediations given with this visit. Patient education given on disease process. Patient verbalized understanding. Previous labs reviewed. Patient discharged in stable condition with after care instructions and follow up appointment. MEDICATIONS NS 500 ML IV [id number] PATIENT HYDRATED AFTER CTA OF THE CHEST ENCOURAGED WATER PT VERBALIZED UNDERSTANDING
== END | disposition home or self-care (01) ==
LOC: Rad HDHVI 16:31
PROVIDERS: ATTEND Internal Medicine Cardiovascular Disease
DX: I27.21 Secondary pulmonary arterial hypertension (principal); I25.10 Atherosclerotic heart disease of native coronary artery without angina pectoris; E86.0 Dehydration; R06.02 Shortness of breath; I11.0 Hypertensive heart disease with heart failure; I50.9 Heart failure, unspecified; E78.5 Hyperlipidemia, unspecified; M81.0 Age-related osteoporosis without current pathological fracture; Z79.899 Other long term (current) drug therapy; Z95.1 Presence of aortocoronary bypass graft
CPT/HCPCS: 71275; 96360; G0463; J7040; Q9967

== ENCOUNTER → 2019-12-09 | Outpatient (CLI) | payer MEDICARE, OTHER ==
[~2019-12-09] MED LIST changes: +BUMETANIDE 1mg/4ml VIAL (0.25mg/ml) ONE; +BUMETANIDE 2.5mg/10ml (0.25 mg/ml) INJ IV ONE; -IOHEXOL 350 MG/ML 100ML IJ ONE; -SODIUM CHLORIDE 0.9% 500 ML IV ONE
[2019-12-09 11:55] VITALS: BP 126/51
[2019-12-09 12:10] VITALS: BP 130/52
[2019-12-09 15:56] LABS: Magnesium 2.9 mg/dL (1.6-2.6); Potassium 4.3 mmol/L (3.5-5.1)
== END | disposition home or self-care (01) ==
LOC: Rad HDHVI 11:47
PROVIDERS: ATTEND Internal Medicine Cardiovascular Disease
DX: I70.0 Atherosclerosis of aorta (principal); I51.7 Cardiomegaly; R94.4 Abnormal results of kidney function studies; E83.40 Disorders of magnesium metabolism, unspecified; R06.02 Shortness of breath
CPT/HCPCS: 36415; 71046; 82565; 83735; 84132; 84520; 96374; G0463; J3490

== ENCOUNTER → 2020-05-10 | Outpatient (CLI) | payer MEDICARE, OTHER ==
[~2020-05-10] VITALS: Ht 162.6 cm; Wt 44.5 kg
[~2020-05-10] MED LIST changes: +ADENOSINE 37 MG in GIVE UN-DILUTED 0 ML IV ONE; +ADENOSINE 90 MG/30 ML INJ IV ONE; -ASPI-404 PO; +ASPI-543 PO; -BUMETANIDE 1mg/4ml VIAL (0.25mg/ml) ONE; -BUMETANIDE 2.5mg/10ml (0.25 mg/ml) INJ IV ONE
== END | disposition home or self-care (01) ==
LOC: Rad HDHVI 13:10
PROVIDERS: ATTEND Internal Medicine Cardiovascular Disease
DX: I11.0 Hypertensive heart disease with heart failure (principal); I50.23 Acute on chronic systolic (congestive) heart failure; I25.5 Ischemic cardiomyopathy; E78.5 Hyperlipidemia, unspecified; I25.10 Atherosclerotic heart disease of native coronary artery without angina pectoris; Z95.1 Presence of aortocoronary bypass graft; E78.00 Pure hypercholesterolemia, unspecified; Z82.49 Family history of ischemic heart disease and other diseases of the circulatory system
CPT/HCPCS: 78452; 93005; 93306; 96374; 96375; A9500; J0153

== ENCOUNTER → 2020-08-27 | Outpatient (CLI) | payer MEDICARE, OTHER ==
[~2020-08-27] MED LIST changes: -ADENOSINE 37 MG in GIVE UN-DILUTED 0 ML IV ONE; -ADENOSINE 90 MG/30 ML INJ IV ONE
[2020-08-27 12:31] LABS: Albumin 4.3 g/dL (3.4-5.0); Potassium 3.5 mmol/L (3.5-5.1)
[2020-08-27 12:40] LABS: Basophils # (auto) 0.1 10 ^3/uL (0-0.2); Basophils % (auto) 1.2 % (0.0-2.0); Eosinophils # (auto) 0.1 10 ^3/uL (0-0.8); Eosinophils % (auto) 1.4 % (0.0-7.0); Hematocrit 39.7 % (36.0-46.0); Hemoglobin 13.3 g/dL (12.2-16.2); Lymphocytes # (auto) 1.6 10 ^3/uL (0.4-5.4); Lymphocytes % (auto) 25.1 % (10.0-50.0); Mean Corpuscular Hemoglobin 31.3 pg (28.0-32.0); Mean Corpuscular Hgb Conc. 33.4 g/dL (32.0-36.0); Mean Corpuscular Volume 93.7 fL (80.0-100.0); Monocytes # (auto) 0.6 10 ^3/uL (0-1.3); Monocytes % (auto) 9.2 % (0.0-12.0); Neutrophils % (auto) 63.1 % (37.0-80.0); Nucleated Red Blood Cells % 0.2 %; Platelet Count (auto) 165 10^3/uL (140-450); Red Blood Cells 4.24 10^6/uL (4.0-5.20); White Blood Cell 6.3 10^3/uL (4.4-10.8)
[2020-08-27 12:41] LABS: BUN/Creatinine Ratio 15.9; Bilirubin, Total 0.8 mg/dL (0.2-1.0); Calcium 8.8 mg/dL (8.5-10.1); Total Protein 8.3 g/dL (6.4-8.2)
[2020-08-27 12:48] LABS: Free T4 (Free Thyroxine) 1.52 ng/dL (0.89-1.76)
[2020-08-27 12:51] LABS: Urine Blood Negative /uL (Negative); Urine Specific Gravity 1.016 (1.001-1.035)
== END | disposition home or self-care (01) ==
LOC: LAB 09:54
PROVIDERS: ATTEND Internal Medicine Cardiovascular Disease
DX: D51.3 Other dietary vitamin B12 deficiency anemia (principal); I10 Essential (primary) hypertension; E11.9 Type 2 diabetes mellitus without complications; E55.9 Vitamin D deficiency, unspecified; D64.9 Anemia, unspecified; R00.2 Palpitations; R53.1 Weakness; R30.0 Dysuria
CPT/HCPCS: 36415; 80053; 80061; 81003; 82306; 82607; 83036; 84439; 84443; 85025

== ENCOUNTER → 2020-09-24 | Outpatient (CLI) | payer MEDICARE, OTHER ==
[~2020-09-24] MED LIST changes: +CYANOCOBALAMIN (B-12) 1000 MCG/1 ML VIAL IM ONE; +CYANOCOBALAMIN (B-12) 1000 MCG/1 ML VIAL ONE; +FUROSEMIDE 100 MG/10ML VIAL IV ONE; +FUROSEMIDE 40 MG/4 ML VIAL ONE
[2020-09-24 14:56] VITALS: BP 154/71
[2020-09-24 15:40] VITALS: BP 142/71
[2020-09-24 16:14] LABS: Basophils # (auto) 0.1 10 ^3/uL (0-0.2); Basophils % (auto) 0.9 % (0.0-2.0); Eosinophils # (auto) 0.1 10 ^3/uL (0-0.8); Eosinophils % (auto) 1.6 % (0.0-7.0); Hematocrit 38.5 % (36.0-46.0); Lymphocytes # (auto) 1.3 10 ^3/uL (0.4-5.4); Lymphocytes % (auto) 20.8 % (10.0-50.0); Mean Corpuscular Hemoglobin 31.3 pg (28.0-32.0); Mean Corpuscular Hgb Conc. 33.6 g/dL (32.0-36.0); Mean Corpuscular Volume 93.2 fL (80.0-100.0); Monocytes # (auto) 0.5 10 ^3/uL (0-1.3); Monocytes % (auto) 7.9 % (0.0-12.0); Neutrophils # (auto) 4.3 10 ^3/uL (1.6-8.6); Neutrophils % (auto) 68.8 % (37.0-80.0); Nucleated Red Blood Cells % 0.1 %; Platelet Count (auto) 175 10^3/uL (140-450); Red Blood Cells 4.13 10^6/uL (4.0-5.20); Red Cell Distribution Width 14.6 % (11.8-14.3); White Blood Cell 6.3 10^3/uL (4.4-10.8)
[2020-09-24 16:41] LABS: Albumin 4.1 g/dL (3.4-5.0); Calcium 8.5 mg/dL (8.5-10.1); Magnesium 3.1 mg/dL (1.6-2.6); Potassium 3.9 mmol/L (3.5-5.1)
[2020-09-24 16:45] LABS: BUN/Creatinine Ratio 13.8; Bilirubin, Total 0.6 mg/dL (0.2-1.0); Total Protein 7.8 g/dL (6.4-8.2)
== END | disposition home or self-care (01) ==
LOC: Rad HDHVI 13:40
PROVIDERS: ATTEND Internal Medicine Cardiovascular Disease
DX: I27.0 Primary pulmonary hypertension (principal); D64.9 Anemia, unspecified; E55.9 Vitamin D deficiency, unspecified; I25.10 Atherosclerotic heart disease of native coronary artery without angina pectoris; I50.23 Acute on chronic systolic (congestive) heart failure; E11.9 Type 2 diabetes mellitus without complications
CPT/HCPCS: 36415; 80053; 82306; 83735; 83880; 85025; 93306; 96372; 96374; G0463; J1940; J3420

== ENCOUNTER → 2020-10-02 | Outpatient (CLI) | payer MEDICARE, OTHER ==
[~2020-10-02] MED LIST changes: -CYANOCOBALAMIN (B-12) 1000 MCG/1 ML VIAL IM ONE; -CYANOCOBALAMIN (B-12) 1000 MCG/1 ML VIAL ONE; -FUROSEMIDE 100 MG/10ML VIAL IV ONE; -FUROSEMIDE 40 MG/4 ML VIAL ONE; +KETOROLAC TROMETH 30 MG/ML 1ML VIAL IV ONE; +KETOROLAC TROMETH 60MG/2ML VIAL IM ONE; +KETOROLAC TROMETH 60MG/2ML VIAL ONE
--- NOTE | 2020-10-02 10:38 | NUR ---
PT ARRIVED TO [facility] FOR EVAL & TX. AMBULATING WITH WALKER. PT STATES PAIN IN LOWER BACK 07/21. WT DECREASED 4.4 LBS.
[2020-10-02 11:00] VITALS: BP 137/63
--- NOTE | 2020-10-02 11:00 | NUR ---
DR CESPEDES ADVISED OF PATIENT'S STATUS, XRAY ORDERS RECEIVED AND CARRIED OUT.
--- NOTE | 2020-10-02 11:30 | NUR ---
PATIENT TO AND FROM XRAY VIA WALKER, TOLERATED DIAGNOSTICS WELL. RESTING WITH NO FURTHER COMPLAINTS.
--- NOTE | 2020-10-02 12:30 | NUR ---
NEW MD ORDERS RECEIVED BY DR CESPEDES FOR BACK PAIN AND CARRIED OUT.
--- NOTE | 2020-10-02 12:40 | NUR ---
MEDICATION: PT MEDICATED WITH TORADOL 30 MG IM LEFT GLUTEAL PAIN 10/10.
--- NOTE | 2020-10-02 12:45 | NUR ---
MEDICATION PT MEDICATION WITH TORADOL 30 MG SLOW IVP PER MD ORDER. TOLERATED WELL.
[2020-10-02 13:00] VITALS: BP 143/65
--- NOTE | 2020-10-02 13:00 | NUR ---
Discharge Instructions See e-MAR for any mediations given with this visit. Patient education given on disease process. Patient verbalized understanding. Previous labs reviewed. Patient discharged in stable condition, ambulatory via walker, with DAUGHTER after care instructions and follow up appointment given. RTC OCTOBER 2020. PENDING XRAY RESULTS FOR DR. CESPEDES TO REVIEW. NOTE MEDICATION GIVEN FOR PAIN: TORADOL 30 MG IM GIVEN BY AARON NIEVES TO LEFT GLUTE. TORADOL 30 MG IVP GIVEN BY MANUELA ANTHONY TO RFA. PT STATED DECREASE IN PAIN AFTER MEDICATION ADMINISTRATION.
== END | disposition home or self-care (01) ==
LOC: CHF HDHVI 10:39
PROVIDERS: ATTEND Internal Medicine Cardiovascular Disease
DX: S22.080A Wedge compression fracture of T11-T12 vertebra, initial encounter for closed fracture (principal); S32.010A Wedge compression fracture of first lumbar vertebra, initial encounter for closed fracture; S32.020A Wedge compression fracture of second lumbar vertebra, initial encounter for closed fracture; S32.030A Wedge compression fracture of third lumbar vertebra, initial encounter for closed fracture; S32.040A Wedge compression fracture of fourth lumbar vertebra, initial encounter for closed fracture; S32.050A Wedge compression fracture of fifth lumbar vertebra, initial encounter for closed fracture; M80.08XA Age-related osteoporosis with current pathological fracture, vertebra(e), initial encounter for fracture; M54.5 Low back pain; G89.29 Other chronic pain; I10 Essential (primary) hypertension; E11.9 Type 2 diabetes mellitus without complications
CPT/HCPCS: 72070; 72100; 96372; 96374; G0463; J1885

== ENCOUNTER → 2020-10-15 | Outpatient (CLI) | payer MEDICARE, OTHER ==
[~2020-10-15] MED LIST changes: +BUMETANIDE 1mg/4ml VIAL (0.25mg/ml) ONE; +BUMETANIDE 2.5mg/10ml (0.25 mg/ml) INJ IV ONE; -KETOROLAC TROMETH 30 MG/ML 1ML VIAL IV ONE; -KETOROLAC TROMETH 60MG/2ML VIAL IM ONE; -KETOROLAC TROMETH 60MG/2ML VIAL ONE; +POTASSIUM CHL 10 Meq TABLET PO ONE
[2020-10-15 11:30] VITALS: BP 139/67
[2020-10-15 13:45] VITALS: BP 136/50
[2020-10-15 16:30] LABS: Potassium 4.4 mmol/L (3.5-5.1)
== END | disposition home or self-care (01) ==
LOC: CHF HDHVI 11:18
PROVIDERS: ATTEND Internal Medicine Cardiovascular Disease
DX: E87.6 Hypokalemia (principal); R94.4 Abnormal results of kidney function studies; R60.0 Localized edema; I11.0 Hypertensive heart disease with heart failure; I50.22 Chronic systolic (congestive) heart failure; I25.10 Atherosclerotic heart disease of native coronary artery without angina pectoris; M81.0 Age-related osteoporosis without current pathological fracture; G89.29 Other chronic pain
CPT/HCPCS: 36415; 82565; 84132; 84520; 96374; G0463; J3490

== ENCOUNTER → 2020-10-26 | Outpatient (CLI) | payer MEDICARE, OTHER ==
[~2020-10-26] VITALS: Ht 30.5 cm; Wt 0.5 kg
[~2020-10-26] MED LIST changes: +POTASSIUM CHL 20 Meq TABLET PO ONE
[2020-10-26 13:51] VITALS: BP 132/56
[2020-10-26 14:25] VITALS: BP 143/64
== END | disposition home or self-care (01) ==
LOC: CHF HDHVI 13:53
PROVIDERS: ATTEND Internal Medicine Cardiovascular Disease
DX: I27.21 Secondary pulmonary arterial hypertension (principal); I11.0 Hypertensive heart disease with heart failure; I50.22 Chronic systolic (congestive) heart failure; M81.0 Age-related osteoporosis without current pathological fracture; I25.10 Atherosclerotic heart disease of native coronary artery without angina pectoris; G89.29 Other chronic pain; E11.9 Type 2 diabetes mellitus without complications
CPT/HCPCS: 96374; G0463; J3490

== ENCOUNTER → 2020-10-29 | Outpatient (CLI) | payer MEDICARE, OTHER ==
[~2020-10-29] VITALS: Ht 30.5 cm; Wt 0.0 kg
[~2020-10-29] MED LIST changes: +AMOX250C3 PO; +CALCTAB78 PO; +CYANOCOBALAMIN (B-12) 1000 MCG/1 ML VIAL IM ONE; +CYANOCOBALAMIN (B-12) 1000 MCG/1 ML VIAL ONE; +HYDR-4798 PO; +LEVO125T PO; -LEVO125T66 PO; +LOSA25TA2 PO; -LOSA25TA8 PO; +MAGN400S25 PO; +MULT-688 PO; +POLYSOL7 EACHEYE; +POTA8TAB2 PO; +RIOC1TAB13 PO; +RIOC1TAB14 PO; +SPIR25TA PO
[2020-10-29 11:15] VITALS: BP 151/49
[2020-10-29 12:16] VITALS: BP 131/58
[2020-10-29 15:43] LABS: BUN/Creatinine Ratio 21.3; Calcium 8.6 mg/dL (8.5-10.1); Magnesium 3.3 mg/dL (1.6-2.6); Potassium 4.3 mmol/L (3.5-5.1)
== END | disposition home or self-care (01) ==
LOC: CHF HDHVI 11:08
PROVIDERS: ATTEND Internal Medicine Cardiovascular Disease
DX: I27.21 Secondary pulmonary arterial hypertension (principal); R53.83 Other fatigue; E87.5 Hyperkalemia; I11.0 Hypertensive heart disease with heart failure; I50.23 Acute on chronic systolic (congestive) heart failure; M81.0 Age-related osteoporosis without current pathological fracture; I25.10 Atherosclerotic heart disease of native coronary artery without angina pectoris; G89.29 Other chronic pain; E11.9 Type 2 diabetes mellitus without complications
CPT/HCPCS: 36415; 80048; 83735; 83880; 96372; 96374; G0463; J3420; J3490

== ENCOUNTER → 2020-11-14 | Outpatient (CLI) | payer MEDICARE, OTHER ==
[~2020-11-14] MED LIST changes: -AMOX250C3 PO; -BUMETANIDE 1mg/4ml VIAL (0.25mg/ml) ONE; -BUMETANIDE 2.5mg/10ml (0.25 mg/ml) INJ IV ONE; -CALCTAB78 PO; -CYANOCOBALAMIN (B-12) 1000 MCG/1 ML VIAL IM ONE; -CYANOCOBALAMIN (B-12) 1000 MCG/1 ML VIAL ONE; +FUROSEMIDE 20 MG/2 ML VIAL IV ONE; +FUROSEMIDE 20 MG/2 ML VIAL ONE; +FUROSEMIDE 40 MG/4 ML VIAL ONE; -HYDR-4798 PO; -MAGN400S25 PO; -MULT-688 PO; -POLYSOL7 EACHEYE; -POTA8TAB2 PO; -RIOC1TAB13 PO; -RIOC1TAB14 PO; -SPIR25TA PO; +metOLazone 5 MG TAB ONE; +metOLazone 5 MG TAB PO ONE
[2020-11-14 14:34] VITALS: BP 118/58
[2020-11-14 15:54] LABS: Magnesium 3.4 mg/dL (1.6-2.6); Potassium 5.4 mmol/L (3.5-5.1)
[2020-11-14 16:30] VITALS: BP 136/61
== END | disposition home or self-care (01) ==
LOC: CHF HDHVI 14:31
PROVIDERS: ATTEND Internal Medicine Cardiovascular Disease
DX: J81.1 Chronic pulmonary edema (principal); I50.23 Acute on chronic systolic (congestive) heart failure; I51.7 Cardiomegaly; R09.89 Other specified symptoms and signs involving the circulatory and respiratory systems; I87.8 Other specified disorders of veins; R06.02 Shortness of breath; M48.54XA Collapsed vertebra, not elsewhere classified, thoracic region, initial encounter for fracture; M40.294 Other kyphosis, thoracic region
CPT/HCPCS: 36415; 71046; 82565; 83735; 84132; 84520; 93005; 96374; G0463; J1940

== ENCOUNTER → 2020-11-20 | Outpatient (CLI) | payer MEDICARE, OTHER ==
[~2020-11-20] VITALS: Ht 30.5 cm; Wt 45.6 kg
[~2020-11-20] MED LIST changes: -FUROSEMIDE 20 MG/2 ML VIAL IV ONE; -FUROSEMIDE 20 MG/2 ML VIAL ONE; -FUROSEMIDE 40 MG/4 ML VIAL ONE; -metOLazone 5 MG TAB ONE; -metOLazone 5 MG TAB PO ONE
[2020-11-20 11:30] VITALS: BP 137/62
[2020-11-20 13:21] LABS: Potassium 3.1 mmol/L (3.5-5.1)
[2020-11-20 13:29] LABS: Magnesium 3.8 mg/dL (1.6-2.6)
[2020-11-20 13:55] VITALS: BP 144/67
== END | disposition home or self-care (01) ==
LOC: CHF HDHVI 11:37
PROVIDERS: ATTEND Internal Medicine Cardiovascular Disease
DX: I27.21 Secondary pulmonary arterial hypertension (principal); E87.6 Hypokalemia; R94.4 Abnormal results of kidney function studies; R60.0 Localized edema; M79.662 Pain in left lower leg; M79.661 Pain in right lower leg
CPT/HCPCS: 36415; 82565; 83735; 84132; 84520; G0463

== ENCOUNTER 2020-11-26 17:29 | Inpatient (IN) | payer MEDICARE, OTHER ==
[~2020-11-26] VITALS: Ht 165.1 cm; Wt 43.0 kg
[~2020-11-26 17:29] MED LIST changes: -POTASSIUM CHL 10 Meq TABLET PO ONE; -POTASSIUM CHL 20 Meq TABLET PO ONE
[2020-11-26] MEDS ORDERED: ONDANSETRON HCL 4 MG/2 ML VIAL IV ONE (18:00)
[2020-11-26] MEDS ORDERED: MORPHINE SULFATE 4 MG/ML SYR/VIAL IV ONE ×2 (18:00→19:30)
[2020-11-26 19:23] LABS: Basophils # (auto) 0.1 10 ^3/uL (0-0.2); Basophils % (auto) 0.6 % (0.0-2.0); Eosinophils # (auto) 0.2 10 ^3/uL (0-0.8); Eosinophils % (auto) 1.6 % (0.0-7.0); Hematocrit 36.6 % (36.0-46.0); Hemoglobin 12.1 g/dL (12.2-16.2); Lymphocytes % (auto) 8.8 % (10.0-50.0); Mean Corpuscular Hemoglobin 30.4 pg (28.0-32.0); Mean Corpuscular Hgb Conc. 33.1 g/dL (32.0-36.0); Mean Corpuscular Volume 91.8 fL (80.0-100.0); Monocytes # (auto) 1.1 10 ^3/uL (0-1.3); Monocytes % (auto) 9.3 % (0.0-12.0); Neutrophils # (auto) 9.4 10 ^3/uL (1.6-8.6); Neutrophils % (auto) 79.7 % (37.0-80.0); Platelet Count (auto) 212 10^3/uL (140-450); Red Blood Cells 3.99 10^6/uL (4.0-5.20); Red Cell Distribution Width 13.9 % (11.8-14.3); White Blood Cell 11.8 10^3/uL (4.4-10.8)
[2020-11-26 19:50] LABS: Albumin 3.6 g/dL (3.4-5.0); Calcium 8.5 mg/dL (8.5-10.1); Magnesium 3.2 mg/dL (1.6-2.6); Potassium 4.4 mmol/L (3.5-5.1)
[2020-11-26 19:53] LABS: BUN/Creatinine Ratio 29.2
[2020-11-26 19:58] LABS: Bilirubin, Total 0.4 mg/dL (0.2-1.0); Total Protein 7.5 g/dL (6.4-8.2)
[2020-11-26] MEDS ORDERED: MORPHINE SULF INJ 2 MG/ML SYRINGE 1ML IV PRN (22:30)
[2020-11-26] MEDS ORDERED: NITROGLYCERIN 0.4 MG SL TAB SL PRN (22:30)
[2020-11-27] MEDS: LEVOTHYROXINE SODIUM 112 MCG TAB PO SCH ×2 (06:08→10:28)
[2020-11-27] MEDS: POTASSIUM CHLORIDE 8 MEQ TAB PO SCH ×4 (06:08→22:21)
[2020-11-27] MEDS: KETOROLAC TROMETH 30 MG/ML 1ML VIAL IV PRN ×2 (08:18→22:20)
[2020-11-27] MEDS ORDERED: LEVOTHYROXINE SODIUM 112 MCG TAB PO SCH (10:00)
[2020-11-27] MEDS ORDERED: TORSEMIDE 20 MG TAB PO ONE (10:00)
[2020-11-27] MEDS ORDERED: CLOPIDOGREL BISULFATE 75 MG TAB PO ONE (10:00)
[2020-11-27] MEDS ORDERED: ENOXAPARIN SOD 60 MG/0.6 ML SYRINGE SC ONE (10:00)
[2020-11-27] MEDS ORDERED: POTA8TAB2 PO (14:16)
[2020-11-27] MEDS ORDERED: HYDR-4798 PO (14:17)
[2020-11-27] MEDS ORDERED: RIOC1TAB13 PO (14:19)
[2020-11-27] MEDS ORDERED: RIOC1TAB14 PO (14:19)
[2020-11-27] MEDS ORDERED: MULT-688 PO (14:20)
[2020-11-27] MEDS ORDERED: POLYSOL7 EACHEYE (14:20)
[2020-11-27] MEDS ORDERED: SPIR25TA PO (14:21)
[2020-11-27] MEDS ORDERED: MAGN400S25 PO (14:23)
[2020-11-27] MEDS ORDERED: CALCTAB78 PO (14:24)
[2020-11-27 22:00] VITALS: BP 108/50
[2020-11-27] MEDS ORDERED: LEVOTHYROXINE SODIUM 25 MCG TAB PO ONE (22:00)
[2020-11-27] MEDS: TORSEMIDE 20 MG TAB PO SCH (22:20)
[2020-11-28 05:00] VITALS: BP 119/59
[2020-11-28] MEDS: POTASSIUM CHLORIDE 8 MEQ TAB PO SCH ×4 (05:50→21:55)
[2020-11-28] MEDS: KETOROLAC TROMETH 30 MG/ML 1ML VIAL IV PRN ×2 (06:05→17:17)
[2020-11-28 09:00] VITALS: BP 123/67
[2020-11-28] MEDS: TORSEMIDE 20 MG TAB PO SCH ×2 (11:34→21:56)
[2020-11-28 13:00] VITALS: BP 111/53
[2020-11-28 16:57] VITALS: BP 103/49
[2020-11-28] MEDS: ADEMPAS 1.5 MG PO SCH (17:13)
[2020-11-28 22:00] VITALS: BP 119/56
[2020-11-29] MEDS: ADEMPAS 1.5 MG PO SCH ×3 (00:22→17:14)
[2020-11-29 05:00] VITALS: BP 125/65
[2020-11-29 07:33] LABS: Basophils # (auto) 0.1 10 ^3/uL (0-0.2); Basophils % (auto) 0.6 % (0.0-2.0); Eosinophils # (auto) 0.2 10 ^3/uL (0-0.8); Eosinophils % (auto) 1.6 % (0.0-7.0); Hematocrit 38.7 % (36.0-46.0); Hemoglobin 12.9 g/dL (12.2-16.2); Lymphocytes # (auto) 1.1 10 ^3/uL (0.4-5.4); Lymphocytes % (auto) 9.5 % (10.0-50.0); Mean Corpuscular Hemoglobin 30.5 pg (28.0-32.0); Mean Corpuscular Hgb Conc. 33.4 g/dL (32.0-36.0); Mean Corpuscular Volume 91.4 fL (80.0-100.0); Monocytes # (auto) 0.9 10 ^3/uL (0-1.3); Monocytes % (auto) 8.1 % (0.0-12.0); Neutrophils # (auto) 9.4 10 ^3/uL (1.6-8.6); Neutrophils % (auto) 80.2 % (37.0-80.0); Platelet Count (auto) 203 10^3/uL (140-450); Red Blood Cells 4.24 10^6/uL (4.0-5.20); Red Cell Distribution Width 14.1 % (11.8-14.3); White Blood Cell 11.7 10^3/uL (4.4-10.8)
[2020-11-29 07:49] LABS: Potassium 4.2 mmol/L (3.5-5.1)
[2020-11-29 07:53] LABS: INR 1.04 (0.9-1.15); Partial Thromboplastin Time 30.5 sec (23.0-31.2)
[2020-11-29] MEDS: POTASSIUM CHLORIDE 8 MEQ TAB PO SCH ×4 (08:35→22:25)
[2020-11-29 09:00] VITALS: BP 90/57
[2020-11-29] MEDS ORDERED: fentaNYL CITRATE 100 MCG/2 ML VL ONE (09:59)
[2020-11-29] MEDS ORDERED: MIDAZOLAM HCL 1MG/1ML-2 ML VIAL ONE (09:59)
[2020-11-29] MEDS ORDERED: IOHEXOL 350 MG/ML 100ML IJ ONE (10:12)
[2020-11-29] MEDS ORDERED: LIDOCAINE 2%HCL (LOCAL ANESTH.) INJ 20ML MDV ONE (10:12)
[2020-11-29] MEDS ORDERED: SODIUM CHL 0.9% 50 ML ONE (10:38)
[2020-11-29] MEDS ORDERED: ANGIOMAX 250 MG VIAL IV ONE (10:38)
[2020-11-29] MEDS ORDERED: CLOPIDOGREL 300 MG TAB ONE (11:22)
[2020-11-29 13:00] VITALS: BP 147/69
[2020-11-29] MEDS: TORSEMIDE 20 MG TAB PO SCH ×2 (13:08→22:24)
[2020-11-29] MEDS: KETOROLAC TROMETH 30 MG/ML 1ML VIAL IV PRN (14:55)
[2020-11-29 17:00] VITALS: BP 127/58
[2020-11-29] MEDS: LEVOTHYROXINE SODIUM 25 MCG TAB PO SCH (17:14)
[2020-11-29] MEDS: LEVOTHYROXINE SODIUM 100 MCG TAB PO SCH (17:14)
[2020-11-29 22:00] VITALS: BP 112/50
[2020-11-30] VITALS (7 sets, daily range): BP systolic 108–129; BP diastolic 49–67
[2020-11-30] MEDS: ADEMPAS 1.5 MG PO SCH ×3 (00:15→18:07)
[2020-11-30] MEDS: POTASSIUM CHLORIDE 8 MEQ TAB PO SCH ×4 (06:46→22:59)
[2020-11-30] MEDS: LEVOTHYROXINE SODIUM 100 MCG TAB PO SCH (06:47)
[2020-11-30] MEDS: LEVOTHYROXINE SODIUM 25 MCG TAB PO SCH (06:47)
[2020-11-30] MEDS ORDERED: ALPRAZolam 0.25 MG TAB PO PRN (08:45)
[2020-11-30] MEDS: TORSEMIDE 20 MG TAB PO SCH ×2 (09:52→22:58)
[2020-11-30] MEDS ORDERED: CLOPIDOGREL BISULFATE 75 MG TAB PO SCH (10:00)
[2020-12-01] MEDS: ADEMPAS 1.5 MG PO SCH ×2 (01:25→09:02)
[2020-12-01] MEDS: KETOROLAC TROMETH 30 MG/ML 1ML VIAL IV PRN (01:26)
[2020-12-01 05:00] VITALS: BP 97/59
[2020-12-01] MEDS: LEVOTHYROXINE SODIUM 100 MCG TAB PO SCH (06:53)
[2020-12-01] MEDS: LEVOTHYROXINE SODIUM 25 MCG TAB PO SCH (06:53)
[2020-12-01] MEDS: POTASSIUM CHLORIDE 8 MEQ TAB PO SCH ×2 (06:53→11:47)
[2020-12-01 08:36] VITALS: BP 105/51
[2020-12-01] MEDS: TORSEMIDE 20 MG TAB PO SCH (09:01)
[2020-12-01 13:00] VITALS: BP 124/61
== END 2020-12-01 12:30 | disposition home or self-care (01) | DRG 247 ==
LOC: EDBD 17:29 → ER 17:33 → TELE 17:34 → TELE-EAST 11-27 18:32
PROVIDERS: ADMIT Internal Medicine Cardiovascular Disease; ATTEND Internal Medicine Cardiovascular Disease
PROC: 027034Z Dilation of Coronary Artery, One Artery with Drug-eluting Intraluminal Device, Percutaneous Approach (ICD-10-PCS; principal; 2020-11-29)
PROC: X2C0361 Extirpation of Matter from Coronary Artery, One Artery using Orbital Atherectomy Technology, Percutaneous Approach, New Technology Group 1 (ICD-10-PCS; 2020-11-29)
PROC: 4A023N7 Measurement of Cardiac Sampling and Pressure, Left Heart, Percutaneous Approach (ICD-10-PCS; 2020-11-29)
PROC: B2111ZZ Fluoroscopy of Multiple Coronary Arteries using Low Osmolar Contrast (ICD-10-PCS; 2020-11-29)
PROC: B21F1ZZ Fluoroscopy of Other Bypass Graft using Low Osmolar Contrast (ICD-10-PCS; 2020-11-29)
DX: I21.4 Non-ST elevation (NSTEMI) myocardial infarction (principal); I24.9 Acute ischemic heart disease, unspecified; D64.9 Anemia, unspecified; D72.829 Elevated white blood cell count, unspecified; N28.9 Disorder of kidney and ureter, unspecified; Z20.822 Contact with and (suspected) exposure to COVID-19; I50.9 Heart failure, unspecified; I11.0 Hypertensive heart disease with heart failure; M81.0 Age-related osteoporosis without current pathological fracture; I27.21 Secondary pulmonary arterial hypertension; I25.10 Atherosclerotic heart disease of native coronary artery without angina pectoris; Z86.73 Personal history of transient ischemic attack (TIA), and cerebral infarction without residual deficits; Z88.8 Allergy status to other drugs, medicaments and biological substances; Z95.1 Presence of aortocoronary bypass graft; Z82.49 Family history of ischemic heart disease and other diseases of the circulatory system; Z82.3 Family history of stroke; Z82.61 Family history of arthritis; Z95.5 Presence of coronary angioplasty implant and graft; Z83.6 Family history of other diseases of the respiratory system; Z82.0 Family history of epilepsy and other diseases of the nervous system; E86.0 Dehydration
CPT/HCPCS: 36415; 71045; 80048; 80053; 83735; 83880; 84484; 85025; 85379; 85610; 85730; 86850; 86900; 86901; 87426; 92933; 93005; 93459; 96374; 96375; 96376; 97163; 99152; 99153; 99291; C1724; C1769; C1874; C1887; G0378; J1885; J2250; J2405

== ENCOUNTER → 2020-12-20 | Outpatient (CLI) | payer MEDICARE, OTHER ==
[~2020-12-20] MED LIST changes: -ALPR0.25 PO; +CALCTAB78 PO; -FURO20TA3 PO; +HYDR-4798 PO; -HYDR-4833 PO; -LOSA25TA2 PO; +MAGN400S25 PO; +MULT-688 PO; -MULT-902 OR; +POLYSOL7 EACHEYE; -POTA-220 PO; +POTA8TAB2 PO; +RIOC1TAB13 PO; +RIOC1TAB14 PO; +SPIR25TA PO; -TRAV0.00 EACHEYE; -UBIQ100C3 PO
[2020-12-20 11:51] LABS: Potassium 4.6 mmol/L (3.5-5.1)
== END | disposition home or self-care (01) ==
LOC: LAB 09:00
PROVIDERS: ATTEND Internal Medicine Cardiovascular Disease
DX: I27.21 Secondary pulmonary arterial hypertension (principal)
CPT/HCPCS: 36415; 82565; 84132; 84520

== ENCOUNTER → 2020-12-25 | Outpatient (CLI) | payer MEDICARE, OTHER ==
[~2020-12-25] MED LIST changes: +FUROSEMIDE 20 MG/2 ML VIAL IV ONE; +FUROSEMIDE 20 MG/2 ML VIAL ONE; +FUROSEMIDE 40 MG/4 ML VIAL ONE; +POTASSIUM CHL 20 Meq TABLET PO ONE; +metOLazone 5 MG TAB ONE; +metOLazone 5 MG TAB PO ONE
[2020-12-25 14:00] VITALS: BP 133/75
[2020-12-25 15:30] VITALS: BP 124/79
[2020-12-25 15:44] LABS: Potassium 4.2 mmol/L (3.5-5.1)
== END | disposition home or self-care (01) ==
LOC: Rad HDHVI 13:01
PROVIDERS: ATTEND Internal Medicine Cardiovascular Disease
DX: I50.23 Acute on chronic systolic (congestive) heart failure (principal); I27.0 Primary pulmonary hypertension
CPT/HCPCS: 36415; 82565; 83880; 84132; 84520; 93306; 96374; G0463; J1940

== ENCOUNTER → 2021-01-07 | Outpatient (CLI) | payer MEDICARE, OTHER ==
[~2021-01-07] VITALS: Ht 30.5 cm; Wt 0.5 kg
[~2021-01-07] MED LIST changes: +BUMETANIDE 1mg/4ml VIAL (0.25mg/ml) ONE; +BUMETANIDE 2.5mg/10ml (0.25 mg/ml) INJ IV ONE; -FUROSEMIDE 20 MG/2 ML VIAL IV ONE; -FUROSEMIDE 20 MG/2 ML VIAL ONE; -FUROSEMIDE 40 MG/4 ML VIAL ONE; +POTASSIUM CHL 10 Meq TABLET PO ONE; -metOLazone 5 MG TAB ONE; -metOLazone 5 MG TAB PO ONE
[2021-01-07 10:58] VITALS: BP 129/67
[2021-01-07 12:32] LABS: Basophils # (auto) 0.1 10 ^3/uL (0-0.2); Basophils % (auto) 1.1 % (0.0-2.0); Eosinophils # (auto) 0.2 10 ^3/uL (0-0.8); Eosinophils % (auto) 2.5 % (0.0-7.0); Hematocrit 36.2 % (36.0-46.0); Hemoglobin 12.1 g/dL (12.2-16.2); Lymphocytes # (auto) 1.4 10 ^3/uL (0.4-5.4); Lymphocytes % (auto) 19.1 % (10.0-50.0); Mean Corpuscular Hemoglobin 30.7 pg (28.0-32.0); Mean Corpuscular Hgb Conc. 33.5 g/dL (32.0-36.0); Mean Corpuscular Volume 91.8 fL (80.0-100.0); Monocytes # (auto) 0.9 10 ^3/uL (0-1.3); Monocytes % (auto) 11.9 % (0.0-12.0); Neutrophils # (auto) 4.9 10 ^3/uL (1.6-8.6); Neutrophils % (auto) 65.4 % (37.0-80.0); Platelet Count (auto) 213 10^3/uL (140-450); Red Blood Cells 3.94 10^6/uL (4.0-5.20); Red Cell Distribution Width 15.3 % (11.8-14.3); White Blood Cell 7.5 10^3/uL (4.4-10.8)
[2021-01-07 13:23] LABS: Albumin 3.6 g/dL (3.4-5.0); Calcium 8.6 mg/dL (8.5-10.1); Potassium 4.3 mmol/L (3.5-5.1)
[2021-01-07 13:28] LABS: Bilirubin, Total 0.4 mg/dL (0.2-1.0); Total Protein 7.3 g/dL (6.4-8.2)
[2021-01-07 14:45] VITALS: BP 136/59
== END | disposition home or self-care (01) ==
LOC: CHF HDHVI 11:14
PROVIDERS: ATTEND Internal Medicine Cardiovascular Disease
DX: I11.0 Hypertensive heart disease with heart failure (principal); I50.22 Chronic systolic (congestive) heart failure; I25.10 Atherosclerotic heart disease of native coronary artery without angina pectoris; I25.2 Old myocardial infarction; E11.9 Type 2 diabetes mellitus without complications; Z86.73 Personal history of transient ischemic attack (TIA), and cerebral infarction without residual deficits; Z95.5 Presence of coronary angioplasty implant and graft
CPT/HCPCS: 36415; 80053; 83735; 83880; 85025; 96374; G0463; J3490

== ENCOUNTER → 2021-01-11 | Outpatient (CLI) | payer MEDICARE, OTHER ==
[~2021-01-11] MED LIST changes: +AMOX250C3 PO; +BUMETANIDE INJECTION 20 ML ONE; -POTASSIUM CHL 10 Meq TABLET PO ONE; -POTASSIUM CHL 20 Meq TABLET PO ONE; +metOLazone 5 MG TAB ONE; +metOLazone 5 MG TAB PO ONE
[2021-01-11 12:15] VITALS: BP 140/64
[2021-01-11 13:50] VITALS: BP 106/43
[2021-01-11 14:52] LABS: Potassium 4.3 mmol/L (3.5-5.1)
== END | disposition home or self-care (01) ==
LOC: CHF HDHVI 12:12
PROVIDERS: ATTEND Internal Medicine Cardiovascular Disease
DX: I27.21 Secondary pulmonary arterial hypertension (principal); I11.0 Hypertensive heart disease with heart failure; I50.22 Chronic systolic (congestive) heart failure; I25.10 Atherosclerotic heart disease of native coronary artery without angina pectoris; I25.2 Old myocardial infarction; E11.9 Type 2 diabetes mellitus without complications; M81.0 Age-related osteoporosis without current pathological fracture; Z95.5 Presence of coronary angioplasty implant and graft; Z86.73 Personal history of transient ischemic attack (TIA), and cerebral infarction without residual deficits; Z95.1 Presence of aortocoronary bypass graft
CPT/HCPCS: 36415; 82565; 84132; 84520; 96374; G0463

== ENCOUNTER 2021-01-14 11:18 | Inpatient (IN) | payer MEDICARE, OTHER ==
[~2021-01-14] VITALS: Ht 162.6 cm; Wt 51.5 kg
[~2021-01-14 11:18] MED LIST changes: -AMOX250C3 PO; -BUMETANIDE 1mg/4ml VIAL (0.25mg/ml) ONE; -BUMETANIDE 2.5mg/10ml (0.25 mg/ml) INJ IV ONE; -BUMETANIDE INJECTION 20 ML ONE; -metOLazone 5 MG TAB ONE; -metOLazone 5 MG TAB PO ONE
[2021-01-14 14:00] VITALS: BP 132/64
[2021-01-14] MEDS ORDERED: MORPHINE SULF INJ 2 MG/ML SYRINGE 1ML IV PRN (14:15)
[2021-01-14] MEDS ORDERED: NITROGLYCERIN 0.4 MG SL TAB SL PRN (14:15)
[2021-01-14] MEDS ORDERED: MILRINONE 20MG/100ML 100 ML IV SCH (14:15)
[2021-01-14 17:00] VITALS: BP 117/55
[2021-01-14 17:21] LABS: Albumin 3.6 g/dL (3.4-5.0); Calcium 9.5 mg/dL (8.5-10.1)
[2021-01-14 17:25] LABS: Bilirubin, Total 0.6 mg/dL (0.2-1.0)
[2021-01-14 17:31] LABS: Potassium 2.7 mmol/L (3.5-5.1)
[2021-01-14] MEDS: MILRINONE 20MG/100ML 100 ML IV SCH (17:59)
[2021-01-14] MEDS: FUROSEMIDE INJECTION 100 MG in SODIUM CHL 0.9% 100 ML IV SCH (18:00)
[2021-01-14] MEDS ORDERED: POTASSIUM CHL 20 Meq TABLET PO ONE (18:30)
[2021-01-14 19:44] LABS: Basophils # (auto) 0.1 10 ^3/uL (0-0.2); Basophils % (auto) 1.3 % (0.0-2.0); Eosinophils # (auto) 0.1 10 ^3/uL (0-0.8); Eosinophils % (auto) 0.8 % (0.0-7.0); Hematocrit 34.3 % (36.0-46.0); Hemoglobin 11.6 g/dL (12.2-16.2); Lymphocytes # (auto) 1.1 10 ^3/uL (0.4-5.4); Mean Corpuscular Hemoglobin 31.2 pg (28.0-32.0); Mean Corpuscular Hgb Conc. 33.9 g/dL (32.0-36.0); Mean Corpuscular Volume 91.8 fL (80.0-100.0); Monocytes # (auto) 0.8 10 ^3/uL (0-1.3); Monocytes % (auto) 9.9 % (0.0-12.0); Neutrophils # (auto) 6.2 10 ^3/uL (1.6-8.6); Nucleated Red Blood Cells % 0.2 %; Platelet Count (auto) 198 10^3/uL (140-450); Red Blood Cells 3.73 10^6/uL (4.0-5.20); Red Cell Distribution Width 14.7 % (11.8-14.3); White Blood Cell 8.3 10^3/uL (4.4-10.8)
[2021-01-14 20:00] VITALS: BP 104/44
[2021-01-14 21:22] LABS: Urine Bacteria NONE SEEN /hpf (None Seen); Urine Blood Negative /uL (Negative); Urine Hyaline Cast MOD /lpf (0 - 2); Urine Specific Gravity 1.008 (1.001-1.035); Urine WBC 2 /hpf (0 - 5)
[2021-01-14 22:01] VITALS: BP 104/44
[2021-01-14] MEDS: POTASSIUM CHL 20 Meq TABLET PO SCH (22:26)
[2021-01-15] MEDS: FUROSEMIDE INJECTION 100 MG in SODIUM CHL 0.9% 100 ML IV SCH ×3 (00:53→21:41)
[2021-01-15] MEDS ORDERED: RIOC1TAB13 PO (02:45)
[2021-01-15] MEDS ORDERED: AMOX250C3 PO (02:45)
[2021-01-15] MEDS: HYDROcodone-ACET 10/325MG TAB PO PRN (04:09)
[2021-01-15 05:00] VITALS: BP 115/61
[2021-01-15] MEDS: LEVOTHYROXINE SODIUM 50 MCG TAB PO SCH (06:12)
[2021-01-15 06:30] LABS: BUN/Creatinine Ratio 25.4; Calcium 8.8 mg/dL (8.5-10.1); Potassium 3.2 mmol/L (3.5-5.1)
[2021-01-15 09:00] VITALS: BP 99/42
[2021-01-15] MEDS: POTASSIUM CHL 20 Meq TABLET PO SCH ×2 (09:05→21:22)
[2021-01-15] MEDS: MILRINONE 20MG/100ML 100 ML IV SCH ×2 (09:16→21:44)
[2021-01-15 13:00] VITALS: BP 118/59
[2021-01-15] MEDS ORDERED: AMOXICILLIN TRIHYDRATE 250 MG CAP PO SCH (14:36)
[2021-01-15 16:36] VITALS: BP 119/49
[2021-01-15] MEDS: AMOXICILLIN TRIHYDRATE 250 MG CAP PO SCH (21:22)
[2021-01-15 22:00] VITALS: BP 122/58
[2021-01-16 05:00] VITALS: BP 117/56
[2021-01-16] MEDS: LEVOTHYROXINE SODIUM 50 MCG TAB PO SCH (06:14)
[2021-01-16] MEDS: FUROSEMIDE INJECTION 100 MG in SODIUM CHL 0.9% 100 ML IV SCH ×2 (06:50→18:11)
[2021-01-16 07:49] LABS: BUN/Creatinine Ratio 24.8; Calcium 8.8 mg/dL (8.5-10.1)
[2021-01-16 07:52] LABS: Potassium 2.7 mmol/L (3.5-5.1)
[2021-01-16 08:00] VITALS: BP 115/55
[2021-01-16] MEDS ORDERED: POTASSIUM CHL 20 Meq TABLET PO ONE (08:45)
[2021-01-16] MEDS: AMOXICILLIN TRIHYDRATE 250 MG CAP PO SCH ×2 (09:29→21:31)
[2021-01-16] MEDS: POTASSIUM CHL 20 Meq TABLET PO SCH ×2 (09:31→21:32)
[2021-01-16] MEDS: HYDROcodone-ACET 10/325MG TAB PO PRN (09:46)
[2021-01-16 12:30] VITALS: BP 108/43
[2021-01-16 17:00] VITALS: BP 106/49
[2021-01-16] MEDS: MILRINONE 20MG/100ML 100 ML IV SCH (17:22)
[2021-01-16 22:00] VITALS: BP 110/50
[2021-01-17] MEDS: DOCUSATE SOD 100 MG CAP PO PRN (01:49)
[2021-01-17] MEDS: HYDROcodone-ACET 10/325MG TAB PO PRN ×2 (01:49→23:40)
[2021-01-17 05:00] VITALS: BP 105/51
[2021-01-17] MEDS: MILRINONE 20MG/100ML 100 ML IV SCH ×2 (05:40→22:20)
[2021-01-17] MEDS: LEVOTHYROXINE SODIUM 50 MCG TAB PO SCH (05:40)
[2021-01-17] MEDS: FUROSEMIDE INJECTION 100 MG in SODIUM CHL 0.9% 100 ML IV SCH ×3 (05:40→22:30)
[2021-01-17 07:10] LABS: BUN/Creatinine Ratio 30.3; Calcium 8.9 mg/dL (8.5-10.1)
[2021-01-17 07:35] LABS: Potassium 2.9 mmol/L (3.5-5.1)
[2021-01-17] MEDS ORDERED: POTASSIUM CHL 20 Meq TABLET PO ONE (07:45)
[2021-01-17 09:00] VITALS: BP 105/56
[2021-01-17] MEDS: AMOXICILLIN TRIHYDRATE 250 MG CAP PO SCH ×2 (09:41→21:20)
[2021-01-17 13:00] VITALS: BP 122/60
[2021-01-17] MEDS: POTASSIUM CHL 20 Meq TABLET PO SCH ×2 (14:12→21:20)
[2021-01-17 17:00] VITALS: BP 115/54
[2021-01-17 22:00] VITALS: BP 125/63
[2021-01-18] MEDS: MILRINONE 20MG/100ML 100 ML IV SCH (04:17)
[2021-01-18 05:00] VITALS: BP 99/46
[2021-01-18] MEDS: LEVOTHYROXINE SODIUM 50 MCG TAB PO SCH (06:17)
[2021-01-18 07:03] LABS: BUN/Creatinine Ratio 31.8; Calcium 8.5 mg/dL (8.5-10.1); Potassium 3.7 mmol/L (3.5-5.1)
[2021-01-18] MEDS: FUROSEMIDE INJECTION 100 MG in SODIUM CHL 0.9% 100 ML IV SCH ×2 (08:24→17:54)
[2021-01-18 09:00] VITALS: BP 108/53
[2021-01-18] MEDS: AMOXICILLIN TRIHYDRATE 250 MG CAP PO SCH ×2 (09:42→21:41)
[2021-01-18] MEDS: POTASSIUM CHL 20 Meq TABLET PO SCH ×2 (09:42→21:41)
[2021-01-18] MEDS ORDERED: AMOXICILLIN TRIHYDRATE 250 MG CAP PO SCH (10:00)
[2021-01-18 13:00] VITALS: BP 162/87
[2021-01-18 17:00] VITALS: BP 113/56
[2021-01-18 22:00] VITALS: BP 108/55
[2021-01-18] MEDS: HYDROcodone-ACET 10/325MG TAB PO PRN (23:13)
[2021-01-19] MEDS: DOCUSATE SOD 100 MG CAP PO PRN (01:02)
[2021-01-19] MEDS: MILRINONE 20MG/100ML 100 ML IV SCH ×2 (01:02→13:58)
[2021-01-19] MEDS: FUROSEMIDE INJECTION 100 MG in SODIUM CHL 0.9% 100 ML IV SCH ×2 (03:38→14:30)
[2021-01-19 05:00] VITALS: BP 100/41
[2021-01-19] MEDS: LEVOTHYROXINE SODIUM 50 MCG TAB PO SCH (06:46)
[2021-01-19 09:00] VITALS: BP 109/56
[2021-01-19] MEDS: POTASSIUM CHL 20 Meq TABLET PO SCH ×2 (09:41→21:57)
[2021-01-19] MEDS: AMOXICILLIN TRIHYDRATE 250 MG CAP PO SCH ×2 (09:41→21:57)
[2021-01-19 13:00] VITALS: BP 126/55
[2021-01-19 17:00] VITALS: BP 117/51
[2021-01-19 22:00] VITALS: BP 122/59
[2021-01-20] MEDS: FUROSEMIDE INJECTION 100 MG in SODIUM CHL 0.9% 100 ML IV SCH ×2 (00:15→10:04)
[2021-01-20] MEDS: DOCUSATE SOD 100 MG CAP PO PRN (00:44)
[2021-01-20] MEDS: HYDROcodone-ACET 10/325MG TAB PO PRN (02:41)
[2021-01-20 05:00] VITALS: BP 119/56
[2021-01-20] MEDS: LEVOTHYROXINE SODIUM 50 MCG TAB PO SCH (06:37)
[2021-01-20] MEDS: MILRINONE 20MG/100ML 100 ML IV SCH (07:53)
[2021-01-20 09:00] VITALS: BP 107/43
[2021-01-20] MEDS: POTASSIUM CHL 20 Meq TABLET PO SCH ×2 (09:30→21:24)
[2021-01-20] MEDS: AMOXICILLIN TRIHYDRATE 250 MG CAP PO SCH ×2 (09:30→21:24)
[2021-01-20] MEDS ORDERED: SPIRONOLACTONE 25 MG TAB PO ONE (12:15)
[2021-01-20] MEDS ORDERED: TORSEMIDE 20 MG TAB PO ONE (12:15)
[2021-01-20] MEDS ORDERED: POTASSIUM CHL 20 Meq TABLET PO ONE (12:15)
[2021-01-20] MEDS ORDERED: LACTULOSE 20Gm/30ML SOLN PO PRN (12:30)
[2021-01-20 13:00] VITALS: BP 121/58
[2021-01-20 15:05] LABS: Basophils # (auto) 0.1 10 ^3/uL (0-0.2); Basophils % (auto) 1.5 % (0.0-2.0); Eosinophils # (auto) 0.4 10 ^3/uL (0-0.8); Hemoglobin 13.2 g/dL (12.2-16.2); Lymphocytes # (auto) 1.6 10 ^3/uL (0.4-5.4); Lymphocytes % (auto) 17.6 % (10.0-50.0); Mean Corpuscular Hemoglobin 31.2 pg (28.0-32.0); Mean Corpuscular Hgb Conc. 33.8 g/dL (32.0-36.0); Mean Corpuscular Volume 92.4 fL (80.0-100.0); Monocytes # (auto) 0.7 10 ^3/uL (0-1.3); Monocytes % (auto) 7.9 % (0.0-12.0); Neutrophils # (auto) 6.1 10 ^3/uL (1.6-8.6); Nucleated Red Blood Cells % 0.2 %; Platelet Count (auto) 247 10^3/uL (140-450); Red Blood Cells 4.23 10^6/uL (4.0-5.20); White Blood Cell 8.8 10^3/uL (4.4-10.8)
[2021-01-20 15:34] LABS: BUN/Creatinine Ratio 32.7; Calcium 9.5 mg/dL (8.5-10.1); Potassium 4.5 mmol/L (3.5-5.1)
[2021-01-20 17:00] VITALS: BP 123/62
[2021-01-20] MEDS: TORSEMIDE 20 MG TAB PO SCH (21:31)
[2021-01-20 22:00] VITALS: BP 137/60
[2021-01-20] MEDS ORDERED: LACTULOSE 20Gm/30ML SOLN PO ONE (22:00)
[2021-01-21] MEDS: HYDROcodone-ACET 10/325MG TAB PO PRN (02:18)
[2021-01-21 05:30] VITALS: BP 117/62
[2021-01-21] MEDS: LEVOTHYROXINE SODIUM 50 MCG TAB PO SCH (06:30)
[2021-01-21 08:00] VITALS: BP 137/60
[2021-01-21 08:44] VITALS: BP 103/58
[2021-01-21] MEDS ORDERED: SPIRONOLACTONE 25 MG TAB PO SCH (10:00)
[2021-01-21] MEDS: POTASSIUM CHL 20 Meq TABLET PO SCH (10:50)
[2021-01-21] MEDS: TORSEMIDE 20 MG TAB PO SCH (10:50)
[2021-01-21] MEDS: AMOXICILLIN TRIHYDRATE 250 MG CAP PO SCH (10:50)
[2021-01-21 12:33] VITALS: BP 100/40
[2021-01-21 16:48] VITALS: BP 133/67
[2021-01-21 17:48] VITALS: BP 133/67
== END 2021-01-21 18:50 | disposition home health service (06) | DRG 291 ==
LOC: TELE-WESTW 13:30
PROVIDERS: ADMIT Internal Medicine Cardiovascular Disease; ATTEND Internal Medicine Cardiovascular Disease
DX: I11.0 Hypertensive heart disease with heart failure (principal); I50.31 Acute diastolic (congestive) heart failure; Z20.822 Contact with and (suspected) exposure to COVID-19; I25.10 Atherosclerotic heart disease of native coronary artery without angina pectoris; I25.5 Ischemic cardiomyopathy; M81.0 Age-related osteoporosis without current pathological fracture; M19.90 Unspecified osteoarthritis, unspecified site; D64.9 Anemia, unspecified; E87.6 Hypokalemia; I27.21 Secondary pulmonary arterial hypertension; Z87.310 Personal history of (healed) osteoporosis fracture; Z88.8 Allergy status to other drugs, medicaments and biological substances; Z82.0 Family history of epilepsy and other diseases of the nervous system; Z82.3 Family history of stroke; Z82.49 Family history of ischemic heart disease and other diseases of the circulatory system; Z82.61 Family history of arthritis; Z86.73 Personal history of transient ischemic attack (TIA), and cerebral infarction without residual deficits; Z95.1 Presence of aortocoronary bypass graft; Z95.5 Presence of coronary angioplasty implant and graft
CPT/HCPCS: 36415; 71045; 80048; 80053; 81001; 83540; 83880; 84443; 85025; 87081; 97110; 97116; 97530; G0378

== ENCOUNTER → 2021-02-11 | Outpatient (CLI) | payer MEDICARE, OTHER ==
[~2021-02-11] MED LIST changes: +AMOX250C3 PO; +FUROSEMIDE 20 MG/2 ML VIAL IV ONE; +FUROSEMIDE 20 MG/2 ML VIAL ONE; +POTASSIUM CHL 10 Meq TABLET PO ONE; +POTASSIUM CHL 20 Meq TABLET PO ONE; -RIOC1TAB14 PO
[2021-02-11 10:28] VITALS: BP 123/62
[2021-02-11 12:10] LABS: Basophils # (auto) 0.1 10 ^3/uL (0-0.2); Basophils % (auto) 0.9 % (0.0-2.0); Eosinophils # (auto) 0.1 10 ^3/uL (0-0.8); Eosinophils % (auto) 1.8 % (0.0-7.0); Hematocrit 34.8 % (36.0-46.0); Hemoglobin 11.8 g/dL (12.2-16.2); Lymphocytes # (auto) 1.1 10 ^3/uL (0.4-5.4); Lymphocytes % (auto) 18.1 % (10.0-50.0); Mean Corpuscular Hemoglobin 31.3 pg (28.0-32.0); Mean Corpuscular Hgb Conc. 33.9 g/dL (32.0-36.0); Mean Corpuscular Volume 92.4 fL (80.0-100.0); Monocytes # (auto) 0.7 10 ^3/uL (0-1.3); Monocytes % (auto) 11.6 % (0.0-12.0); Neutrophils # (auto) 4.1 10 ^3/uL (1.6-8.6); Neutrophils % (auto) 67.6 % (37.0-80.0); Nucleated Red Blood Cells % 0.1 %; Platelet Count (auto) 164 10^3/uL (140-450); Red Blood Cells 3.77 10^6/uL (4.0-5.20); Red Cell Distribution Width 14.4 % (11.8-14.3); White Blood Cell 6.1 10^3/uL (4.4-10.8)
[2021-02-11 12:32] LABS: Albumin 3.6 g/dL (3.4-5.0); Calcium 8.6 mg/dL (8.5-10.1); Potassium 3.8 mmol/L (3.5-5.1)
[2021-02-11 12:35] LABS: BUN/Creatinine Ratio 17.7; Bilirubin, Total 0.4 mg/dL (0.2-1.0); Total Protein 7.2 g/dL (6.4-8.2)
[2021-02-11 13:17] VITALS: BP 138/60
== END | disposition home or self-care (01) ==
LOC: CHF HDHVI 10:26
PROVIDERS: ATTEND Internal Medicine Cardiovascular Disease
DX: I27.21 Secondary pulmonary arterial hypertension (principal); R22.43 Localized swelling, mass and lump, lower limb, bilateral; I11.0 Hypertensive heart disease with heart failure; I50.23 Acute on chronic systolic (congestive) heart failure; I25.10 Atherosclerotic heart disease of native coronary artery without angina pectoris; I25.2 Old myocardial infarction; E11.9 Type 2 diabetes mellitus without complications; M81.0 Age-related osteoporosis without current pathological fracture; M19.90 Unspecified osteoarthritis, unspecified site; Z95.5 Presence of coronary angioplasty implant and graft; Z86.73 Personal history of transient ischemic attack (TIA), and cerebral infarction without residual deficits
CPT/HCPCS: 36415; 80053; 83735; 83880; 85025; 96374; G0463; J1940

== ENCOUNTER → 2021-02-21 | Outpatient (CLI) | payer MEDICARE, OTHER ==
[~2021-02-21] VITALS: Ht 30.5 cm; Wt 0.5 kg
[~2021-02-21] MED LIST changes: +CYANOCOBALAMIN (B-12) 1000 MCG/1 ML VIAL IM ONE; +CYANOCOBALAMIN (B-12) 1000 MCG/1 ML VIAL ONE; -FUROSEMIDE 20 MG/2 ML VIAL IV ONE; -FUROSEMIDE 20 MG/2 ML VIAL ONE; -POTASSIUM CHL 10 Meq TABLET PO ONE; -POTASSIUM CHL 20 Meq TABLET PO ONE
[2021-02-21 11:30] VITALS: BP 140/67
[2021-02-21 11:55] VITALS: BP 122/62
[2021-02-21 15:27] LABS: Potassium 4.2 mmol/L (3.5-5.1)
== END | disposition home or self-care (01) ==
LOC: CHF HDHVI 11:40
PROVIDERS: ATTEND Internal Medicine Cardiovascular Disease
DX: I27.21 Secondary pulmonary arterial hypertension (principal); R53.83 Other fatigue; R60.0 Localized edema; I11.0 Hypertensive heart disease with heart failure; I50.22 Chronic systolic (congestive) heart failure; I25.10 Atherosclerotic heart disease of native coronary artery without angina pectoris; I25.2 Old myocardial infarction; I42.8 Other cardiomyopathies; E11.9 Type 2 diabetes mellitus without complications; M19.90 Unspecified osteoarthritis, unspecified site; M81.0 Age-related osteoporosis without current pathological fracture; Z86.73 Personal history of transient ischemic attack (TIA), and cerebral infarction without residual deficits; Z95.5 Presence of coronary angioplasty implant and graft
CPT/HCPCS: 36415; 82565; 83880; 84132; 84520; 96372; G0463; J3420

== ENCOUNTER → 2021-02-26 | Outpatient (CLI) | payer MEDICARE, OTHER ==
[~2021-02-26] VITALS: Ht 162.6 cm; Wt 48.1 kg
[~2021-02-26] MED LIST changes: +ADENOSINE 40 MG in GIVE UN-DILUTED 0 ML IV ONE; +ADENOSINE 90 MG/30 ML INJ IV ONE; -CYANOCOBALAMIN (B-12) 1000 MCG/1 ML VIAL IM ONE; -CYANOCOBALAMIN (B-12) 1000 MCG/1 ML VIAL ONE
== END | disposition home or self-care (01) ==
LOC: Rad HDHVI 13:23
PROVIDERS: ATTEND Internal Medicine Cardiovascular Disease
DX: I25.10 Atherosclerotic heart disease of native coronary artery without angina pectoris (principal); I50.43 Acute on chronic combined systolic (congestive) and diastolic (congestive) heart failure; I25.5 Ischemic cardiomyopathy; I27.21 Secondary pulmonary arterial hypertension; M77.8 Other enthesopathies, not elsewhere classified; M25.461 Effusion, right knee; R07.89 Other chest pain; Z82.49 Family history of ischemic heart disease and other diseases of the circulatory system
CPT/HCPCS: 78452; 93005; 96374; 96375; A9500; J0153

== ENCOUNTER → 2021-02-28 | Outpatient (CLI) | payer MEDICARE, OTHER ==
[~2021-02-28] VITALS: Ht 30.5 cm; Wt 0.5 kg
[~2021-02-28] MED LIST changes: -ADENOSINE 40 MG in GIVE UN-DILUTED 0 ML IV ONE; -ADENOSINE 90 MG/30 ML INJ IV ONE; +KETOROLAC TROMETH 30 MG/ML 1ML VIAL IV ONE; +KETOROLAC TROMETH 60MG/2ML VIAL ONE
[2021-02-28 11:19] VITALS: BP 117/61
[2021-02-28 12:18] VITALS: BP 131/59
[2021-02-28 15:49] LABS: Basophils # (auto) 0.1 10 ^3/uL (0-0.2); Basophils % (auto) 0.9 % (0.0-2.0); Eosinophils # (auto) 0.1 10 ^3/uL (0-0.8); Eosinophils % (auto) 1.7 % (0.0-7.0); Hematocrit 34.9 % (36.0-46.0); Hemoglobin 11.8 g/dL (12.2-16.2); Lymphocytes % (auto) 16.4 % (10.0-50.0); Mean Corpuscular Hemoglobin 31.6 pg (28.0-32.0); Mean Corpuscular Hgb Conc. 33.9 g/dL (32.0-36.0); Mean Corpuscular Volume 93.2 fL (80.0-100.0); Monocytes # (auto) 0.6 10 ^3/uL (0-1.3); Neutrophils # (auto) 4.5 10 ^3/uL (1.6-8.6); Nucleated Red Blood Cells % 0.1 %; Platelet Count (auto) 192 10^3/uL (140-450); Red Blood Cells 3.74 10^6/uL (4.0-5.20); Red Cell Distribution Width 14.4 % (11.8-14.3); White Blood Cell 6.4 10^3/uL (4.4-10.8)
[2021-02-28 15:56] LABS: Albumin 3.6 g/dL (3.4-5.0); Calcium 8.8 mg/dL (8.5-10.1)
[2021-02-28 16:02] LABS: BUN/Creatinine Ratio 22.6; Bilirubin, Total 0.4 mg/dL (0.2-1.0)
== END | disposition home or self-care (01) ==
LOC: CHF HDHVI 11:22
PROVIDERS: ATTEND Internal Medicine Cardiovascular Disease
DX: R07.81 Pleurodynia (principal); I50.23 Acute on chronic systolic (congestive) heart failure; I27.0 Primary pulmonary hypertension; I25.10 Atherosclerotic heart disease of native coronary artery without angina pectoris; M81.0 Age-related osteoporosis without current pathological fracture; I25.2 Old myocardial infarction; E11.9 Type 2 diabetes mellitus without complications; M19.90 Unspecified osteoarthritis, unspecified site; Z95.5 Presence of coronary angioplasty implant and graft; Z86.73 Personal history of transient ischemic attack (TIA), and cerebral infarction without residual deficits
CPT/HCPCS: 36415; 80053; 85025; 96372; G0463; J1885

== ENCOUNTER → 2021-03-05 | Outpatient (CLI) | payer MEDICARE, OTHER ==
[~2021-03-05] MED LIST changes: +CYANOCOBALAMIN (B-12) 1000 MCG/1 ML VIAL IM ONE; +CYANOCOBALAMIN (B-12) 1000 MCG/1 ML VIAL ONE; +FUROSEMIDE 100 MG/10ML VIAL IV ONE; +FUROSEMIDE 40 MG/4 ML VIAL ONE; -KETOROLAC TROMETH 30 MG/ML 1ML VIAL IV ONE; -KETOROLAC TROMETH 60MG/2ML VIAL ONE; +POTASSIUM CHL 10 Meq TABLET PO ONE; +VANCOMYCIN 1GM/250ML 250 ML IV ONE
[2021-03-05 12:30] VITALS: BP 141/70
[2021-03-05 15:43] LABS: Potassium 3.9 mmol/L (3.5-5.1)
== END | disposition home or self-care (01) ==
LOC: CHF HDHVI 11:25
PROVIDERS: ATTEND Internal Medicine Cardiovascular Disease
DX: I27.21 Secondary pulmonary arterial hypertension (principal); R53.83 Other fatigue; I11.0 Hypertensive heart disease with heart failure; I50.42 Chronic combined systolic (congestive) and diastolic (congestive) heart failure; I25.10 Atherosclerotic heart disease of native coronary artery without angina pectoris; I25.2 Old myocardial infarction; E11.9 Type 2 diabetes mellitus without complications; M81.0 Age-related osteoporosis without current pathological fracture; M19.90 Unspecified osteoarthritis, unspecified site; Z95.5 Presence of coronary angioplasty implant and graft; Z86.73 Personal history of transient ischemic attack (TIA), and cerebral infarction without residual deficits
CPT/HCPCS: 36415; 82565; 84132; 84520; 96372; 96374; G0463; J1940; J3420

== ENCOUNTER 2021-03-08 13:34 | Inpatient (IN) | payer MEDICARE, OTHER ==
[~2021-03-08] VITALS: Ht 157.5 cm; Wt 39.0 kg
[~2021-03-08 13:34] MED LIST changes: -CYANOCOBALAMIN (B-12) 1000 MCG/1 ML VIAL IM ONE; -CYANOCOBALAMIN (B-12) 1000 MCG/1 ML VIAL ONE; -FUROSEMIDE 100 MG/10ML VIAL IV ONE; -FUROSEMIDE 40 MG/4 ML VIAL ONE; -POTASSIUM CHL 10 Meq TABLET PO ONE; -VANCOMYCIN 1GM/250ML 250 ML IV ONE
[2021-03-08] MEDS ORDERED: MORPHINE SULF INJ 2 MG/ML SYRINGE 1ML IV PRN (15:15)
[2021-03-08] MEDS ORDERED: NITROGLYCERIN 0.4 MG SL TAB SL PRN (15:15)
[2021-03-08] MEDS ORDERED: DOBUTamine 1000MCG/ML 250 ML IV SCH (16:45)
[2021-03-08 17:00] VITALS: BP 115/51
[2021-03-08 18:21] VITALS: BP 112/59
[2021-03-08] MEDS: DOBUTamine 1000MCG/ML 250 ML IV SCH (21:27)
[2021-03-08] MEDS: FUROSEMIDE INJECTION 100 MG in SODIUM CHL 0.9% 100 ML IV SCH ×2 (21:30→21:45)
[2021-03-08] MEDS: ADEMPAS 1.5 MG PO SCH (21:43)
[2021-03-08] MEDS: HYDROcodone-ACET 10/325MG TAB PO PRN (21:44)
[2021-03-08 22:00] VITALS: BP 111/52
[2021-03-09] MEDS: FUROSEMIDE INJECTION 100 MG in SODIUM CHL 0.9% 100 ML IV SCH ×5 (01:48→22:34)
[2021-03-09 05:00] VITALS: BP 114/49
[2021-03-09 05:58] LABS: Basophils # (auto) 0.1 10 ^3/uL (0-0.2); Basophils % (auto) 1.3 % (0.0-2.0); Eosinophils # (auto) 0.1 10 ^3/uL (0-0.8); Eosinophils % (auto) 1.8 % (0.0-7.0); Hematocrit 33.9 % (36.0-46.0); Hemoglobin 11.7 g/dL (12.2-16.2); Lymphocytes # (auto) 1.8 10 ^3/uL (0.4-5.4); Lymphocytes % (auto) 28.3 % (10.0-50.0); Mean Corpuscular Hemoglobin 31.9 pg (28.0-32.0); Mean Corpuscular Hgb Conc. 34.5 g/dL (32.0-36.0); Mean Corpuscular Volume 92.4 fL (80.0-100.0); Monocytes # (auto) 0.7 10 ^3/uL (0-1.3); Monocytes % (auto) 10.5 % (0.0-12.0); Neutrophils # (auto) 3.6 10 ^3/uL (1.6-8.6); Neutrophils % (auto) 58.1 % (37.0-80.0); Nucleated Red Blood Cells % 0.1 %; Platelet Count (auto) 177 10^3/uL (140-450); Red Blood Cells 3.67 10^6/uL (4.0-5.20); Red Cell Distribution Width 14.2 % (11.8-14.3); White Blood Cell 6.3 10^3/uL (4.4-10.8)
[2021-03-09 06:20] LABS: Calcium 8.4 mg/dL (8.5-10.1); Potassium 3.2 mmol/L (3.5-5.1)
[2021-03-09] MEDS: LEVOTHYROXINE SODIUM 50 MCG TAB PO SCH (06:20)
[2021-03-09] MEDS: ADEMPAS 1.5 MG PO SCH ×3 (06:20→21:52)
[2021-03-09 06:23] LABS: BUN/Creatinine Ratio 25.8
[2021-03-09] MEDS: HYDROcodone-ACET 10/325MG TAB PO PRN ×2 (08:24→22:02)
[2021-03-09 09:00] VITALS: BP 102/42
[2021-03-09] MEDS: PANTOPRAZOLE 40 MG TAB PO SCH (09:59)
[2021-03-09] MEDS: SPIRONOLACTONE 25 MG TAB PO SCH (09:59)
[2021-03-09] MEDS: CLOPIDOGREL BISULFATE 75 MG TAB PO SCH (09:59)
[2021-03-09] MEDS ORDERED: PANTOPRAZOLE 40 MG TAB PO SCH (10:00)
[2021-03-09 13:00] VITALS: BP 103/54
[2021-03-09 16:47] VITALS: BP 105/55
[2021-03-09 22:00] VITALS: BP 119/47
[2021-03-09] MEDS: DOBUTamine 1000MCG/ML 250 ML IV SCH (22:03)
[2021-03-10] MEDS: FUROSEMIDE INJECTION 100 MG in SODIUM CHL 0.9% 100 ML IV SCH ×5 (04:51→21:21)
[2021-03-10 05:00] VITALS: BP 113/53
[2021-03-10 05:59] LABS: Basophils # (auto) 0.1 10 ^3/uL (0-0.2); Basophils % (auto) 0.9 % (0.0-2.0); Eosinophils # (auto) 0.2 10 ^3/uL (0-0.8); Eosinophils % (auto) 3.3 % (0.0-7.0); Hematocrit 37.4 % (36.0-46.0); Hemoglobin 12.9 g/dL (12.2-16.2); Lymphocytes # (auto) 1.8 10 ^3/uL (0.4-5.4); Mean Corpuscular Hgb Conc. 34.6 g/dL (32.0-36.0); Mean Corpuscular Volume 92.5 fL (80.0-100.0); Monocytes # (auto) 0.7 10 ^3/uL (0-1.3); Monocytes % (auto) 10.2 % (0.0-12.0); Neutrophils # (auto) 3.8 10 ^3/uL (1.6-8.6); Neutrophils % (auto) 58.6 % (37.0-80.0); Nucleated Red Blood Cells % 0.1 %; Platelet Count (auto) 178 10^3/uL (140-450); Red Blood Cells 4.04 10^6/uL (4.0-5.20); Red Cell Distribution Width 13.9 % (11.8-14.3); White Blood Cell 6.5 10^3/uL (4.4-10.8)
[2021-03-10 06:13] LABS: BUN/Creatinine Ratio 22.8; Calcium 7.8 mg/dL (8.5-10.1)
[2021-03-10] MEDS: LEVOTHYROXINE SODIUM 50 MCG TAB PO SCH (06:38)
[2021-03-10] MEDS: ADEMPAS 1.5 MG PO SCH ×3 (06:38→21:21)
[2021-03-10 08:55] VITALS: BP 97/48
[2021-03-10] MEDS: PANTOPRAZOLE 40 MG TAB PO SCH (10:13)
[2021-03-10] MEDS: CLOPIDOGREL BISULFATE 75 MG TAB PO SCH (10:13)
[2021-03-10] MEDS: SPIRONOLACTONE 25 MG TAB PO SCH (10:13)
[2021-03-10] MEDS: MILK OF MAGNESIA 30ML SUSP PO PRN (10:17)
[2021-03-10] MEDS: POTASSIUM CHL 10 Meq TABLET PO SCH ×4 (12:10→18:28)
[2021-03-10 13:00] VITALS: BP 102/45
[2021-03-10 17:00] VITALS: BP 97/46
[2021-03-10] MEDS: DOBUTamine 1000MCG/ML 250 ML IV SCH (20:21)
[2021-03-10 21:23] VITALS: BP 119/53
[2021-03-11] MEDS: HYDROcodone-ACET 10/325MG TAB PO PRN ×2 (01:26→23:52)
[2021-03-11] MEDS: FUROSEMIDE INJECTION 100 MG in SODIUM CHL 0.9% 100 ML IV SCH ×4 (04:52→21:19)
[2021-03-11 05:21] LABS: Basophils # (auto) 0.1 10 ^3/uL (0-0.2); Basophils % (auto) 0.6 % (0.0-2.0); Eosinophils # (auto) 0.5 10 ^3/uL (0-0.8); Hematocrit 38.2 % (36.0-46.0); Lymphocytes # (auto) 1.8 10 ^3/uL (0.4-5.4); Lymphocytes % (auto) 19.2 % (10.0-50.0); Mean Corpuscular Hemoglobin 31.2 pg (28.0-32.0); Monocytes # (auto) 0.9 10 ^3/uL (0-1.3); Monocytes % (auto) 9.6 % (0.0-12.0); Neutrophils % (auto) 65.6 % (37.0-80.0); Platelet Count (auto) 201 10^3/uL (140-450); Red Blood Cells 4.15 10^6/uL (4.0-5.20); Red Cell Distribution Width 14.2 % (11.8-14.3); White Blood Cell 9.2 10^3/uL (4.4-10.8)
[2021-03-11 05:38] LABS: BUN/Creatinine Ratio 22.2; Calcium 9.1 mg/dL (8.5-10.1); Potassium 3.8 mmol/L (3.5-5.1)
[2021-03-11 05:45] VITALS: BP 99/45
[2021-03-11] MEDS: LEVOTHYROXINE SODIUM 50 MCG TAB PO SCH (07:00)
[2021-03-11 09:00] VITALS: BP 94/51
[2021-03-11] MEDS: PANTOPRAZOLE 40 MG TAB PO SCH (10:46)
[2021-03-11] MEDS: CLOPIDOGREL BISULFATE 75 MG TAB PO SCH (10:46)
[2021-03-11] MEDS: SPIRONOLACTONE 25 MG TAB PO SCH (10:46)
[2021-03-11 12:41] VITALS: BP 107/64
[2021-03-11] MEDS: ADEMPAS 1.5 MG PO SCH ×2 (13:47→21:20)
[2021-03-11 17:07] VITALS: BP 109/41
[2021-03-11 20:00] VITALS: BP 105/44
[2021-03-11] MEDS: DOBUTamine 1000MCG/ML 250 ML IV SCH (20:00)
[2021-03-11] MEDS: MILK OF MAGNESIA 30ML SUSP PO PRN (21:29)
[2021-03-12] MEDS: FUROSEMIDE INJECTION 100 MG in SODIUM CHL 0.9% 100 ML IV SCH ×3 (01:35→11:26)
[2021-03-12 05:00] VITALS: BP 107/59
[2021-03-12] MEDS: ADEMPAS 1.5 MG PO SCH ×3 (05:49→21:38)
[2021-03-12] MEDS: LEVOTHYROXINE SODIUM 50 MCG TAB PO SCH (06:02)
[2021-03-12 06:05] LABS: Basophils # (auto) 0.1 10 ^3/uL (0-0.2); Basophils % (auto) 0.9 % (0.0-2.0); Eosinophils # (auto) 0.4 10 ^3/uL (0-0.8); Hematocrit 36.6 % (36.0-46.0); Hemoglobin 12.8 g/dL (12.2-16.2); Lymphocytes # (auto) 1.6 10 ^3/uL (0.4-5.4); Lymphocytes % (auto) 18.3 % (10.0-50.0); Mean Corpuscular Volume 91.5 fL (80.0-100.0); Monocytes # (auto) 0.8 10 ^3/uL (0-1.3); Monocytes % (auto) 9.9 % (0.0-12.0); Neutrophils # (auto) 5.6 10 ^3/uL (1.6-8.6); Neutrophils % (auto) 65.9 % (37.0-80.0); Nucleated Red Blood Cells % 0.1 %; Platelet Count (auto) 199 10^3/uL (140-450); Red Blood Cells 4.01 10^6/uL (4.0-5.20); Red Cell Distribution Width 13.9 % (11.8-14.3); White Blood Cell 8.5 10^3/uL (4.4-10.8)
[2021-03-12 06:29] LABS: Calcium 8.8 mg/dL (8.5-10.1); Potassium 3.5 mmol/L (3.5-5.1)
[2021-03-12 06:32] LABS: BUN/Creatinine Ratio 25.2
[2021-03-12] MEDS ORDERED: MAGNESIUM SULFATE 1GM/100ML 100 ML IV SCH (08:00)
[2021-03-12 09:00] VITALS: BP 110/47
[2021-03-12] MEDS: CLOPIDOGREL BISULFATE 75 MG TAB PO SCH (10:07)
[2021-03-12] MEDS: PANTOPRAZOLE 40 MG TAB PO SCH (10:07)
[2021-03-12] MEDS: SPIRONOLACTONE 25 MG TAB PO SCH (10:07)
[2021-03-12] MEDS: MAGNESIUM SULFATE 1GM/100ML 100 ML IV SCH ×2 (10:08→11:27)
[2021-03-12 13:00] VITALS: BP 137/91
[2021-03-12 17:00] VITALS: BP 128/63
[2021-03-12] MEDS: MILK OF MAGNESIA 30ML SUSP PO PRN (18:02)
[2021-03-12 22:00] VITALS: BP 110/62
[2021-03-13 05:00] VITALS: BP 104/55
[2021-03-13] MEDS: ADEMPAS 1.5 MG PO SCH ×3 (05:33→22:04)
[2021-03-13 05:51] LABS: Basophils # (auto) 0 10 ^3/uL (0-0.2); Basophils % (auto) 0.2 % (0.0-2.0); Eosinophils # (auto) 0 10 ^3/uL (0-0.8); Hematocrit 40.3 % (36.0-46.0); Hemoglobin 13.8 g/dL (12.2-16.2); Lymphocytes # (auto) 1.2 10 ^3/uL (0.4-5.4); Lymphocytes % (auto) 7.4 % (10.0-50.0); Mean Corpuscular Hemoglobin 31.4 pg (28.0-32.0); Mean Corpuscular Hgb Conc. 34.2 g/dL (32.0-36.0); Mean Corpuscular Volume 92.1 fL (80.0-100.0); Monocytes # (auto) 0.9 10 ^3/uL (0-1.3); Monocytes % (auto) 5.6 % (0.0-12.0); Neutrophils # (auto) 13.5 10 ^3/uL (1.6-8.6); Neutrophils % (auto) 86.8 % (37.0-80.0); Platelet Count (auto) 233 10^3/uL (140-450); Red Blood Cells 4.38 10^6/uL (4.0-5.20); Red Cell Distribution Width 14.1 % (11.8-14.3); White Blood Cell 15.5 10^3/uL (4.4-10.8)
[2021-03-13 06:11] LABS: Calcium 8.9 mg/dL (8.5-10.1); Potassium 3.6 mmol/L (3.5-5.1)
[2021-03-13 06:12] LABS: BUN/Creatinine Ratio 22.4
[2021-03-13] MEDS: LEVOTHYROXINE SODIUM 50 MCG TAB PO SCH (06:37)
[2021-03-13 08:42] VITALS: BP 116/64
[2021-03-13] MEDS: PANTOPRAZOLE 40 MG TAB PO SCH (10:47)
[2021-03-13] MEDS: CLOPIDOGREL BISULFATE 75 MG TAB PO SCH (10:47)
[2021-03-13] MEDS: SPIRONOLACTONE 25 MG TAB PO SCH (10:47)
[2021-03-13 13:00] VITALS: BP 133/58
[2021-03-13 16:43] VITALS: BP 109/65
[2021-03-13 22:00] VITALS: BP 119/69
[2021-03-13] MEDS: MILK OF MAGNESIA 30ML SUSP PO PRN (22:04)
[2021-03-14 05:00] VITALS: BP 110/58
[2021-03-14] MEDS: ADEMPAS 1.5 MG PO SCH ×3 (06:00→22:12)
[2021-03-14] MEDS: LEVOTHYROXINE SODIUM 50 MCG TAB PO SCH (07:00)
[2021-03-14 08:37] VITALS: BP 98/51
[2021-03-14] MEDS: PANTOPRAZOLE 40 MG TAB PO SCH (09:13)
[2021-03-14] MEDS: CLOPIDOGREL BISULFATE 75 MG TAB PO SCH (09:13)
[2021-03-14] MEDS: SPIRONOLACTONE 25 MG TAB PO SCH (09:13)
[2021-03-14 13:12] VITALS: BP 120/70
[2021-03-14] MEDS ORDERED: LACTULOSE 20Gm/30ML SOLN PO ONE (15:00)
[2021-03-14 16:21] VITALS: BP 114/67
[2021-03-14 16:34] LABS: Urine Bacteria FEW /hpf (None Seen); Urine Blood Negative /uL (Negative); Urine Mucus FEW (None Seen); Urine Specific Gravity 1.015 (1.001-1.035); Urine WBC 23 /hpf (0 - 5)
[2021-03-14] MEDS ORDERED: LACTULOSE 20Gm/30ML SOLN PO PRN (22:00)
[2021-03-14] MEDS ORDERED: METOCLOPRAMIDE HCL 5MG/ml INJ 2ml VIAL IV PRN (22:00)
[2021-03-14 22:01] VITALS: BP 102/57
[2021-03-15 05:24] VITALS: BP 105/58
[2021-03-15] MEDS: ADEMPAS 1.5 MG PO SCH ×2 (06:06→14:00)
[2021-03-15] MEDS: LEVOTHYROXINE SODIUM 50 MCG TAB PO SCH (06:21)
[2021-03-15] MEDS: SPIRONOLACTONE 25 MG TAB PO SCH (08:31)
[2021-03-15] MEDS: CLOPIDOGREL BISULFATE 75 MG TAB PO SCH (08:32)
[2021-03-15] MEDS: PANTOPRAZOLE 40 MG TAB PO SCH ×2 (08:32→08:40)
[2021-03-15 09:00] VITALS: BP 112/58
[2021-03-15] MEDS ORDERED: levoFLOXacin 500MG 100 ML IV SCH (11:00)
[2021-03-15 12:21] LABS: Basophils # (auto) 0 10 ^3/uL (0-0.2); Basophils % (auto) 0.1 % (0.0-2.0); Eosinophils # (auto) 0.1 10 ^3/uL (0-0.8); Eosinophils % (auto) 0.4 % (0.0-7.0); Hematocrit 37.2 % (36.0-46.0); Hemoglobin 12.9 g/dL (12.2-16.2); Lymphocytes # (auto) 1.1 10 ^3/uL (0.4-5.4); Lymphocytes % (auto) 9.3 % (10.0-50.0); Mean Corpuscular Hemoglobin 31.6 pg (28.0-32.0); Mean Corpuscular Hgb Conc. 34.7 g/dL (32.0-36.0); Monocytes # (auto) 1.1 10 ^3/uL (0-1.3); Monocytes % (auto) 9.5 % (0.0-12.0); Neutrophils # (auto) 9.1 10 ^3/uL (1.6-8.6); Neutrophils % (auto) 80.7 % (37.0-80.0); Nucleated Red Blood Cells % 0.1 %; Platelet Count (auto) 250 10^3/uL (140-450); Red Blood Cells 4.09 10^6/uL (4.0-5.20); Red Cell Distribution Width 13.6 % (11.8-14.3); White Blood Cell 11.3 10^3/uL (4.4-10.8)
[2021-03-15 13:00] VITALS: BP 102/53
[2021-03-15 17:01] VITALS: BP 98/51
[2021-03-15 17:17] VITALS: BP 110/47
== END 2021-03-15 20:05 | disposition home health service (06) | DRG 291 ==
LOC: TELE-WESTW 13:58
PROVIDERS: ADMIT Internal Medicine Cardiovascular Disease; ATTEND Internal Medicine Cardiovascular Disease
DX: I11.0 Hypertensive heart disease with heart failure (principal); I50.31 Acute diastolic (congestive) heart failure; M48.50XA Collapsed vertebra, not elsewhere classified, site unspecified, initial encounter for fracture; I25.5 Ischemic cardiomyopathy; M81.0 Age-related osteoporosis without current pathological fracture; I25.10 Atherosclerotic heart disease of native coronary artery without angina pectoris; D64.9 Anemia, unspecified; Z20.822 Contact with and (suspected) exposure to COVID-19; R29.6 Repeated falls; I27.21 Secondary pulmonary arterial hypertension; D72.829 Elevated white blood cell count, unspecified; E87.6 Hypokalemia; G25.3 Myoclonus; Z82.3 Family history of stroke; Z82.0 Family history of epilepsy and other diseases of the nervous system; Z82.49 Family history of ischemic heart disease and other diseases of the circulatory system; Z82.61 Family history of arthritis; Z86.73 Personal history of transient ischemic attack (TIA), and cerebral infarction without residual deficits; Z95.1 Presence of aortocoronary bypass graft; Z95.5 Presence of coronary angioplasty implant and graft; Z88.8 Allergy status to other drugs, medicaments and biological substances
CPT/HCPCS: 36415; 71045; 80048; 81001; 82330; 83735; 83880; 85025; 87086; 87088; 87186; 87426; 97110; 97116; 97530; G0378; J1956

== ENCOUNTER → 2021-03-25 | Outpatient (CLI) | payer MEDICARE, OTHER ==
[2021-03-25 09:30] VITALS: BP 131/53
[2021-03-25 11:54] VITALS: BP 129/65
[2021-03-25 12:51] LABS: Basophils # (auto) 0.1 10 ^3/uL (0-0.2); Basophils % (auto) 0.9 % (0.0-2.0); Eosinophils # (auto) 0.2 10 ^3/uL (0-0.8); Eosinophils % (auto) 1.5 % (0.0-7.0); Hematocrit 35.7 % (36.0-46.0); Hemoglobin 11.8 g/dL (12.2-16.2); Lymphocytes # (auto) 1.6 10 ^3/uL (0.4-5.4); Lymphocytes % (auto) 13.9 % (10.0-50.0); Mean Corpuscular Hemoglobin 30.8 pg (28.0-32.0); Mean Corpuscular Volume 93.5 fL (80.0-100.0); Monocytes # (auto) 0.8 10 ^3/uL (0-1.3); Monocytes % (auto) 7.4 % (0.0-12.0); Neutrophils # (auto) 8.6 10 ^3/uL (1.6-8.6); Neutrophils % (auto) 76.3 % (37.0-80.0); Platelet Count (auto) 289 10^3/uL (140-450); Red Blood Cells 3.82 10^6/uL (4.0-5.20); Red Cell Distribution Width 14.5 % (11.8-14.3); White Blood Cell 11.3 10^3/uL (4.4-10.8)
[2021-03-25 13:17] LABS: BUN/Creatinine Ratio 24.7; Calcium 8.7 mg/dL (8.5-10.1); Potassium 5.4 mmol/L (3.5-5.1)
== END | disposition home or self-care (01) ==
LOC: CHF HDHVI 10:07
PROVIDERS: ATTEND Internal Medicine Cardiovascular Disease
DX: Z01.812 Encounter for preprocedural laboratory examination (principal); I50.9 Heart failure, unspecified; I48.91 Unspecified atrial fibrillation; I27.21 Secondary pulmonary arterial hypertension; R94.31 Abnormal electrocardiogram [ECG] [EKG]
CPT/HCPCS: 36415; 80048; 85025; 85610; 93005; G0463

== ENCOUNTER → 2021-03-26 | Outpatient (CLI) | payer MEDICARE, OTHER ==
[~2021-03-26] MED LIST changes: +LIDOCAINE 1% (LOCAL ANESTH.) PF 5ml SDV ID ONE; +SODIUM CHLOR 0.9% PF (SALINE LOCK) 10ML VIAL/SYR IV SCH
== END | disposition home or self-care (01) ==
LOC: XYW 10:32
PROVIDERS: ATTEND Internal Medicine Cardiovascular Disease
DX: Z45.2 Encounter for adjustment and management of vascular access device (principal); F41.9 Anxiety disorder, unspecified; I25.810 Atherosclerosis of coronary artery bypass graft(s) without angina pectoris; M19.90 Unspecified osteoarthritis, unspecified site; M54.5 Low back pain; Z88.8 Allergy status to other drugs, medicaments and biological substances; Z88.1 Allergy status to other antibiotic agents; Z90.10 Acquired absence of unspecified breast and nipple; Z98.890 Other specified postprocedural states
CPT/HCPCS: 36569; 71045; C1751; J7050

== ENCOUNTER → 2021-03-28 | Outpatient (CLI) | payer MEDICARE, OTHER ==
[~2021-03-28] MED LIST changes: -LIDOCAINE 1% (LOCAL ANESTH.) PF 5ml SDV ID ONE; -SODIUM CHLOR 0.9% PF (SALINE LOCK) 10ML VIAL/SYR IV SCH
[2021-03-28 11:30] VITALS: BP 131/56
[2021-03-28 12:16] VITALS: BP 126/58
[2021-03-28 15:02] LABS: Potassium 4.8 mmol/L (3.5-5.1)
== END | disposition home or self-care (01) ==
LOC: CHF HDHVI 11:21
PROVIDERS: ATTEND Internal Medicine Cardiovascular Disease
DX: R94.4 Abnormal results of kidney function studies (principal)
CPT/HCPCS: 36415; 82565; 84132; 84520; G0463; J1642

== ENCOUNTER 2021-04-06 04:20 | Inpatient (IN) | payer MEDICARE, OTHER ==
[~2021-04-06] VITALS: Ht 160 cm; Wt 45.8 kg
[2021-04-06 06:22] LABS: Basophils # (auto) 0.1 10 ^3/uL (0-0.2); Basophils % (auto) 0.6 % (0.0-2.0); Eosinophils # (auto) 0.1 10 ^3/uL (0-0.8); Eosinophils % (auto) 1.2 % (0.0-7.0); Hematocrit 29.6 % (36.0-46.0); Hemoglobin 10.3 g/dL (12.2-16.2); Lymphocytes # (auto) 1.4 10 ^3/uL (0.4-5.4); Lymphocytes % (auto) 15.1 % (10.0-50.0); Mean Corpuscular Hgb Conc. 34.6 g/dL (32.0-36.0); Mean Corpuscular Volume 92.6 fL (80.0-100.0); Monocytes # (auto) 0.9 10 ^3/uL (0-1.3); Neutrophils % (auto) 74.1 % (37.0-80.0); Platelet Count (auto) 150 10^3/uL (140-450); Red Cell Distribution Width 14.8 % (11.8-14.3); White Blood Cell 9.4 10^3/uL (4.4-10.8)
[2021-04-06 06:37] LABS: Albumin 3.2 g/dL (3.4-5.0); Calcium 8.3 mg/dL (8.5-10.1); INR 1.07 (0.9-1.15); Partial Thromboplastin Time 41.5 sec (23.0-31.2); Potassium 4.8 mmol/L (3.5-5.1)
[2021-04-06 06:41] LABS: BUN/Creatinine Ratio 22.5; Bilirubin, Total 0.6 mg/dL (0.2-1.0); Total Protein 6.4 g/dL (6.4-8.2)
[2021-04-06 07:09] LABS: Urine Bacteria FEW /hpf (None Seen); Urine Blood Negative /uL (Negative); Urine Hyaline Cast FEW /lpf (0 - 2); Urine Specific Gravity 1.011 (1.001-1.035); Urine WBC 4 /hpf (0 - 5)
[2021-04-06] MEDS ORDERED: DOBUTamine 1000MCG/ML 250 ML IV SCH (15:00)
[2021-04-06] MEDS ORDERED: MORPHINE SULF INJ 2 MG/ML SYRINGE 1ML IV PRN (15:00)
[2021-04-06] MEDS ORDERED: cefTRIAXone 1GM/50ML D5W 50 ML IV ONE ×2 (15:15→15:45)
[2021-04-06] MEDS: DOBUTamine 1000MCG/ML 250 ML IV SCH (17:07)
[2021-04-06] MEDS: FUROSEMIDE INJECTION 100 MG in SODIUM CHL 0.9% 100 ML IV SCH (17:15)
[2021-04-06 19:00] VITALS: BP 128/59
[2021-04-06] MEDS ORDERED: FURO20TA3 PO (21:14)
[2021-04-06 21:43] VITALS: BP 121/55
[2021-04-06] MEDS: HYDROmorphone HCL 2 MG/ML VL IV PRN (21:50)
[2021-04-06] MEDS: POTASSIUM CHL 20 Meq TABLET PO SCH (22:11)
[2021-04-07] MEDS ORDERED: FUROSEMIDE INJECTION 10 ML ONE (01:37)
[2021-04-07] MEDS: FUROSEMIDE INJECTION 100 MG in SODIUM CHL 0.9% 100 ML IV SCH ×3 (01:44→21:49)
[2021-04-07 04:37] VITALS: BP 126/70
[2021-04-07] MEDS: POTASSIUM CHL 20 Meq TABLET PO SCH ×4 (05:44→21:50)
[2021-04-07 07:07] LABS: Potassium 3.5 mmol/L (3.5-5.1)
[2021-04-07 07:21] LABS: BUN/Creatinine Ratio 18.4; Calcium 7.4 mg/dL (8.5-10.1)
[2021-04-07 09:00] VITALS: BP_SYST 111; BP_SYST 147; BP_DIAS 55; BP_DIAS 74
[2021-04-07] MEDS: SPIRONOLACTONE 25 MG TAB PO SCH (09:33)
[2021-04-07] MEDS: DOBUTamine 1000MCG/ML 250 ML IV SCH (10:23)
[2021-04-07 13:00] VITALS: BP 130/92
[2021-04-07] MEDS: HYDROmorphone HCL 2 MG/ML VL IV PRN (15:57)
[2021-04-07 16:47] LABS: Potassium 3.6 mmol/L (3.5-5.1)
[2021-04-07 16:51] LABS: BUN/Creatinine Ratio 17.4; Calcium 7.6 mg/dL (8.5-10.1)
[2021-04-07 17:00] VITALS: BP 111/52
[2021-04-07 22:00] VITALS: BP 108/69
[2021-04-08] MEDS: HYDROmorphone HCL 2 MG/ML VL IV PRN ×2 (00:55→16:34)
[2021-04-08] MEDS: DOBUTamine 1000MCG/ML 250 ML IV SCH ×2 (01:48→19:48)
[2021-04-08 05:00] VITALS: BP 123/73
[2021-04-08] MEDS: MAGNESIUM SULFATE 1GM/100ML 100 ML IV SCH ×2 (05:47→06:56)
[2021-04-08] MEDS: POTASSIUM CHL 20MEQ/100ML 100 ML IV SCH ×3 (05:47→06:57)
[2021-04-08] MEDS: POTASSIUM CHL 20 Meq TABLET PO SCH ×5 (06:00→22:00)
[2021-04-08] MEDS: FUROSEMIDE INJECTION 100 MG in SODIUM CHL 0.9% 100 ML IV SCH ×2 (07:03→17:11)
[2021-04-08 08:03] LABS: Calcium 7.8 mg/dL (8.5-10.1); Potassium 3.4 mmol/L (3.5-5.1)
[2021-04-08 09:00] VITALS: BP 102/56
[2021-04-08] MEDS ORDERED: TPN PER PHARMACY 0 ML IV SCH (10:00)
[2021-04-08] MEDS ORDERED: POTASSIUM CHL 20MEQ/100ML 100 ML IV ONE (10:30)
[2021-04-08 10:47] LABS: Albumin 2.9 g/dL (3.4-5.0); Calcium 6.8 mg/dL (8.5-10.1); Potassium 3.5 mmol/L (3.5-5.1)
[2021-04-08] MEDS: CARISOPRODOL 350 MG TAB PO SCH ×2 (10:49→22:00)
[2021-04-08 10:50] LABS: BUN/Creatinine Ratio 12.6; Total Protein 6.1 g/dL (6.4-8.2)
[2021-04-08] MEDS: SPIRONOLACTONE 25 MG TAB PO SCH (10:55)
[2021-04-08] MEDS ORDERED: CARISOPRODOL 350 MG TAB PO ONE (11:30)
[2021-04-08] MEDS ORDERED: POTASSIUM EFFERVESENT TAB 25 MEQ GT ONE (11:45)
[2021-04-08 11:53] LABS: Phosphorus 2.7 mg/dL (2.5-4.90)
[2021-04-08 11:57] LABS: Pre Albumin 16.8 mg/dL (20.0-40.0)
[2021-04-08 13:00] VITALS: BP 107/53
[2021-04-08 17:12] VITALS: BP 96/48
[2021-04-08] MEDS ORDERED: DEXTROSE (50%) 50ML SYRG IV SCH (18:00)
[2021-04-08] MEDS: InsuLIN REG 1unit/0.01ml Soln (100units/ml) SC SCH (18:00)
[2021-04-08] MEDS: ACCU-CHEK COMFORT CURVE STRIP VI SCH (18:00)
[2021-04-08 20:00] VITALS: BP 119/50
[2021-04-08] MEDS: AMINO ACID INFUSION IN D10W 1,000 ML IV NR ×2 (20:00→20:49)
[2021-04-08 22:00] VITALS: BP 119/50
[2021-04-08] MEDS ORDERED: CARISOPRODOL 350 MG TAB PO PRN (22:00)
[2021-04-09] MEDS: FUROSEMIDE INJECTION 100 MG in SODIUM CHL 0.9% 100 ML IV SCH ×3 (03:00→23:28)
[2021-04-09 05:00] VITALS: BP 104/55
[2021-04-09] MEDS: InsuLIN REG 1unit/0.01ml Soln (100units/ml) SC SCH ×4 (06:00→18:00)
[2021-04-09] MEDS: ACCU-CHEK COMFORT CURVE STRIP VI SCH ×4 (06:00→18:48)
[2021-04-09 07:30] LABS: Calcium 7.4 mg/dL (8.5-10.1); Magnesium 2.5 mg/dL (1.6-2.6); Potassium 3.5 mmol/L (3.5-5.1)
[2021-04-09 07:33] LABS: BUN/Creatinine Ratio 20.8; Bilirubin, Total 1.1 mg/dL (0.2-1.0); Phosphorus 2.9 mg/dL (2.5-4.90); Total Protein 6.4 g/dL (6.4-8.2)
[2021-04-09 09:00] VITALS: BP 92/44
[2021-04-09] MEDS: CARISOPRODOL 350 MG TAB PO SCH ×2 (10:48→21:21)
[2021-04-09] MEDS: SPIRONOLACTONE 25 MG TAB PO SCH (10:49)
[2021-04-09] MEDS: POTASSIUM CHL 20 Meq TABLET PO SCH ×3 (12:00→21:21)
[2021-04-09] MEDS: DOBUTamine 1000MCG/ML 250 ML IV SCH (12:51)
[2021-04-09] MEDS: HYDROmorphone HCL 2 MG/ML VL IV PRN ×2 (12:53→21:28)
[2021-04-09 13:00] VITALS: BP 111/53
[2021-04-09] MEDS: LACTULOSE 20Gm/30ML SOLN PO PRN (13:08)
[2021-04-09] MEDS ORDERED: guaiFENesin-CODEINE Liq 5 ML UD PO PRN (14:00)
[2021-04-09 17:00] VITALS: BP 100/50
[2021-04-09] MEDS ORDERED: TPN PER PHARMACY IV NR ×11 (20:00)
[2021-04-09 21:00] VITALS: BP 121/54
[2021-04-10] MEDS: ACCU-CHEK COMFORT CURVE STRIP VI SCH ×5 (00:11→23:51)
[2021-04-10 05:00] VITALS: BP 143/77
[2021-04-10] MEDS: POTASSIUM CHL 20 Meq TABLET PO SCH ×4 (05:36→21:51)
[2021-04-10] MEDS: InsuLIN REG 1unit/0.01ml Soln (100units/ml) SC SCH ×5 (05:49→23:51)
[2021-04-10] MEDS: DOBUTamine 1000MCG/ML 250 ML IV SCH ×2 (06:09→23:36)
[2021-04-10 07:01] LABS: Albumin 2.9 g/dL (3.4-5.0); Calcium 7.8 mg/dL (8.5-10.1); Magnesium 2.3 mg/dL (1.6-2.6); Potassium 3.6 mmol/L (3.5-5.1)
[2021-04-10 07:04] LABS: Bilirubin, Total 0.9 mg/dL (0.2-1.0); Phosphorus 2.2 mg/dL (2.5-4.90); Total Protein 6.7 g/dL (6.4-8.2)
[2021-04-10 09:00] VITALS: BP 122/59
[2021-04-10] MEDS: CARISOPRODOL 350 MG TAB PO SCH ×2 (09:02→21:51)
[2021-04-10] MEDS: SPIRONOLACTONE 25 MG TAB PO SCH (09:03)
[2021-04-10] MEDS: FUROSEMIDE INJECTION 100 MG in SODIUM CHL 0.9% 100 ML IV SCH ×2 (10:24→17:54)
[2021-04-10] MEDS: HYDROmorphone HCL 2 MG/ML VL IV PRN (10:30)
[2021-04-10] MEDS ORDERED: SODIUM PHOSPHATES 20 MEQ in SODIUM CHL 0.9% 100 ML IV ONE (12:30)
[2021-04-10 13:00] VITALS: BP 119/57
[2021-04-10] MEDS: HYDROcodone-ACET 10/325MG TAB PO PRN (16:01)
[2021-04-10 17:00] VITALS: BP 106/50
[2021-04-10] MEDS: TPN PER PHARMACY IV NR ×11 (20:07)
[2021-04-10 22:08] VITALS: BP 120/63
[2021-04-11 05:00] VITALS: BP 151/64
[2021-04-11] MEDS: FUROSEMIDE INJECTION 100 MG in SODIUM CHL 0.9% 100 ML IV SCH ×2 (05:12→16:38)
[2021-04-11] MEDS: POTASSIUM CHL 20 Meq TABLET PO SCH ×4 (05:38→21:00)
[2021-04-11] MEDS: ACCU-CHEK COMFORT CURVE STRIP VI SCH ×4 (05:46→23:26)
[2021-04-11] MEDS: InsuLIN REG 1unit/0.01ml Soln (100units/ml) SC SCH ×4 (05:48→23:25)
[2021-04-11 06:26] LABS: Basophils # (auto) 0 10 ^3/uL (0-0.2); Basophils % (auto) 0.1 % (0.0-2.0); Eosinophils # (auto) 0.1 10 ^3/uL (0-0.8); Eosinophils % (auto) 1.3 % (0.0-7.0); Hematocrit 27.1 % (36.0-46.0); Hemoglobin 9.6 g/dL (12.2-16.2); Lymphocytes # (auto) 0.6 10 ^3/uL (0.4-5.4); Lymphocytes % (auto) 5.5 % (10.0-50.0); Mean Corpuscular Hemoglobin 32.6 pg (28.0-32.0); Mean Corpuscular Hgb Conc. 35.5 g/dL (32.0-36.0); Mean Corpuscular Volume 91.7 fL (80.0-100.0); Monocytes % (auto) 9.2 % (0.0-12.0); Neutrophils # (auto) 8.9 10 ^3/uL (1.6-8.6); Neutrophils % (auto) 83.9 % (37.0-80.0); Nucleated Red Blood Cells % 0.1 %; Platelet Count (auto) 188 10^3/uL (140-450); Red Blood Cells 2.96 10^6/uL (4.0-5.20); Red Cell Distribution Width 14.2 % (11.8-14.3); White Blood Cell 10.6 10^3/uL (4.4-10.8)
[2021-04-11 06:46] LABS: Potassium 3.6 mmol/L (3.5-5.1)
[2021-04-11 06:58] LABS: Albumin 2.9 g/dL (3.4-5.0); BUN/Creatinine Ratio 43.5; Bilirubin, Total 0.9 mg/dL (0.2-1.0); Calcium 7.9 mg/dL (8.5-10.1); Magnesium 2.3 mg/dL (1.6-2.6); Phosphorus 2.8 mg/dL (2.5-4.90); Total Protein 6.8 g/dL (6.4-8.2)
[2021-04-11 09:00] VITALS: BP 118/60
[2021-04-11] MEDS: SPIRONOLACTONE 25 MG TAB PO SCH (09:09)
[2021-04-11] MEDS: CARISOPRODOL 350 MG TAB PO SCH ×2 (09:09→21:00)
[2021-04-11 13:00] VITALS: BP 112/56
[2021-04-11] MEDS: HYDROmorphone HCL 2 MG/ML VL IV PRN (14:50)
[2021-04-11] MEDS ORDERED: PATIENTS OWN MEDICATION (EPOGEN 10,000 UNITS) SUBCUT ONE (15:15)
[2021-04-11] MEDS: DOBUTamine 1000MCG/ML 250 ML IV SCH (16:37)
[2021-04-11 16:44] VITALS: BP 119/58
[2021-04-11] MEDS: TPN PER PHARMACY IV NR ×11 (19:54)
[2021-04-11] MEDS: SODIUM CHLORIDE IV NR ×10 (20:01)
[2021-04-11] MEDS: FAT EMULSION IV NR ×10 (20:01)
[2021-04-11] MEDS: POTASSIUM CHLORIDE IV NR ×10 (20:01)
[2021-04-11] MEDS: [UNRECOGNIZED DRUG - OTHER] IV NR ×10 (20:01)
[2021-04-11] MEDS ORDERED: EPOETIN ALFA-EPBX 10,000 UNIT/1ML VIAL SC ONE (21:00)
[2021-04-11 22:20] VITALS: BP 129/59
[2021-04-12] MEDS: FUROSEMIDE INJECTION 100 MG in SODIUM CHL 0.9% 100 ML IV SCH ×3 (02:32→23:57)
[2021-04-12] MEDS: HYDROmorphone HCL 2 MG/ML VL IV PRN ×2 (02:35→18:15)
[2021-04-12 05:13] VITALS: BP 109/44
[2021-04-12] MEDS: HYDROcodone-ACET 10/325MG TAB PO PRN (05:58)
[2021-04-12] MEDS: InsuLIN REG 1unit/0.01ml Soln (100units/ml) SC SCH ×3 (06:00→18:07)
[2021-04-12] MEDS: POTASSIUM CHL 20 Meq TABLET PO SCH ×2 (06:14→12:15)
[2021-04-12] MEDS: ACCU-CHEK COMFORT CURVE STRIP VI SCH ×3 (06:14→18:08)
[2021-04-12 07:11] LABS: Calcium 8.3 mg/dL (8.5-10.1); Potassium 4.1 mmol/L (3.5-5.1)
[2021-04-12 07:28] LABS: BUN/Creatinine Ratio 45.9; Bilirubin, Total 0.7 mg/dL (0.2-1.0); Magnesium 2.4 mg/dL (1.6-2.6); Phosphorus 3.7 mg/dL (2.5-4.90)
[2021-04-12 08:15] VITALS: BP 108/55
[2021-04-12 09:00] VITALS: BP 108/55
[2021-04-12] MEDS: DOBUTamine 1000MCG/ML 250 ML IV SCH (09:14)
[2021-04-12] MEDS: SPIRONOLACTONE 25 MG TAB PO SCH (10:49)
[2021-04-12] MEDS: CARISOPRODOL 350 MG TAB PO SCH ×2 (10:49→22:51)
[2021-04-12 12:43] VITALS: BP 111/53
[2021-04-12 16:46] VITALS: BP 116/55
[2021-04-12] MEDS: [UNRECOGNIZED DRUG - OTHER] IV NR ×10 (19:56)
[2021-04-12] MEDS: POTASSIUM CHLORIDE IV NR ×10 (19:56)
[2021-04-12] MEDS: SODIUM CHLORIDE IV NR ×10 (19:56)
[2021-04-12] MEDS: FAT EMULSION IV NR ×10 (19:56)
[2021-04-12] MEDS: TPN PER PHARMACY IV NR ×18 (20:00→22:11)
[2021-04-12 22:10] VITALS: BP 112/56
[2021-04-12] MEDS: POTASSIUM EFFERVESENT TAB 25 MEQ PO SCH (22:47)
[2021-04-12] MEDS: ceFAZolin 1GM/50ML 50 ML IV SCH (22:47)
[2021-04-13] VITALS (7 sets, daily range): BP systolic 105–117; BP diastolic 43–62
[2021-04-13] MEDS: DOBUTamine 1000MCG/ML 250 ML IV SCH ×2 (00:54→18:03)
[2021-04-13] MEDS: ACCU-CHEK COMFORT CURVE STRIP VI SCH ×4 (01:00→18:04)
[2021-04-13] MEDS: InsuLIN REG 1unit/0.01ml Soln (100units/ml) SC SCH ×4 (01:00→18:00)
[2021-04-13] MEDS: HYDROcodone-ACET 10/325MG TAB PO PRN ×2 (02:23→21:36)
[2021-04-13 05:32] LABS: Potassium 3.9 mmol/L (3.5-5.1)
[2021-04-13 05:40] LABS: Albumin 2.8 g/dL (3.4-5.0); Bilirubin, Total 0.6 mg/dL (0.2-1.0); Calcium 8.3 mg/dL (8.5-10.1); Magnesium 2.4 mg/dL (1.6-2.6); Phosphorus 2.8 mg/dL (2.5-4.90); Total Protein 7.1 g/dL (6.4-8.2)
[2021-04-13] MEDS: ceFAZolin 1GM/50ML 50 ML IV SCH ×3 (06:40→22:00)
[2021-04-13] MEDS: FUROSEMIDE INJECTION 100 MG in SODIUM CHL 0.9% 100 ML IV SCH ×2 (06:43→17:02)
[2021-04-13] MEDS: SPIRONOLACTONE 25 MG TAB PO SCH (09:38)
[2021-04-13] MEDS: CARISOPRODOL 350 MG TAB PO SCH ×2 (09:38→22:00)
[2021-04-13] MEDS: POTASSIUM EFFERVESENT TAB 25 MEQ PO SCH ×2 (09:38→22:00)
[2021-04-13] MEDS: ADEMPAS 1.5 MG PO SCH ×2 (14:00→22:00)
[2021-04-13] MEDS: HYDROmorphone HCL 2 MG/ML VL IV PRN (15:50)
[2021-04-13] MEDS ORDERED: TPN PER PHARMACY IV NR ×10 (20:00)
[2021-04-14] VITALS (7 sets, daily range): BP systolic 96–121; BP diastolic 49–58
[2021-04-14] MEDS: HYDROmorphone HCL 2 MG/ML VL IV PRN ×2 (03:15→20:15)
[2021-04-14] MEDS: FUROSEMIDE INJECTION 100 MG in SODIUM CHL 0.9% 100 ML IV SCH ×3 (03:59→23:00)
[2021-04-14 05:36] LABS: Albumin 2.7 g/dL (3.4-5.0); Calcium 8.3 mg/dL (8.5-10.1); Potassium 4.6 mmol/L (3.5-5.1)
[2021-04-14 05:41] LABS: BUN/Creatinine Ratio 49.5; Bilirubin, Total 0.8 mg/dL (0.2-1.0); Magnesium 2.5 mg/dL (1.6-2.6); Phosphorus 2.7 mg/dL (2.5-4.90); Total Protein 6.9 g/dL (6.4-8.2)
[2021-04-14] MEDS: ceFAZolin 1GM/50ML 50 ML IV SCH ×3 (06:00→22:22)
[2021-04-14] MEDS: InsuLIN REG 1unit/0.01ml Soln (100units/ml) SC SCH ×4 (06:00→18:00)
[2021-04-14] MEDS: ACCU-CHEK COMFORT CURVE STRIP VI SCH ×4 (06:00→18:00)
[2021-04-14] MEDS: ADEMPAS 1.5 MG PO SCH ×3 (06:00→22:22)
[2021-04-14] MEDS: POTASSIUM EFFERVESENT TAB 25 MEQ PO SCH ×2 (11:05→22:22)
[2021-04-14] MEDS: SPIRONOLACTONE 25 MG TAB PO SCH (11:05)
[2021-04-14] MEDS: DOBUTamine 1000MCG/ML 250 ML IV SCH (11:05)
[2021-04-14] MEDS: CARISOPRODOL 350 MG TAB PO SCH ×2 (11:05→22:22)
[2021-04-14] MEDS: HYDROcodone-ACET 10/325MG TAB PO PRN ×2 (11:06→23:37)
[2021-04-14] MEDS ORDERED: TPN PER PHARMACY IV NR ×10 (20:00)
[2021-04-15] MEDS: ACCU-CHEK COMFORT CURVE STRIP VI SCH ×4 (00:21→17:54)
[2021-04-15] MEDS: InsuLIN REG 1unit/0.01ml Soln (100units/ml) SC SCH ×4 (00:21→17:53)
[2021-04-15] MEDS: DOBUTamine 1000MCG/ML 250 ML IV SCH ×2 (04:19→22:10)
[2021-04-15] MEDS: HYDROmorphone HCL 2 MG/ML VL IV PRN ×2 (04:53→19:05)
[2021-04-15] MEDS: FUROSEMIDE INJECTION 100 MG in SODIUM CHL 0.9% 100 ML IV SCH ×3 (05:00→18:33)
[2021-04-15 05:07] VITALS: BP 97/51
[2021-04-15 05:43] LABS: Potassium 4.4 mmol/L (3.5-5.1)
[2021-04-15 05:53] LABS: Albumin 2.7 g/dL (3.4-5.0); Bilirubin, Total 0.3 mg/dL (0.2-1.0); Calcium 8.3 mg/dL (8.5-10.1); Magnesium 2.6 mg/dL (1.6-2.6); Phosphorus 3.7 mg/dL (2.5-4.90); Total Protein 6.9 g/dL (6.4-8.2)
[2021-04-15 05:59] LABS: Pre Albumin 12.7 mg/dL (20.0-40.0)
[2021-04-15] MEDS: ceFAZolin 1GM/50ML 50 ML IV SCH ×3 (06:50→22:11)
[2021-04-15] MEDS: ADEMPAS 1.5 MG PO SCH ×3 (06:50→21:50)
[2021-04-15 08:15] VITALS: BP 101/58
[2021-04-15 08:15] LABS: Basophils # (auto) 0 10 ^3/uL (0-0.2); Basophils % (auto) 0.4 % (0.0-2.0); Eosinophils # (auto) 0.3 10 ^3/uL (0-0.8); Eosinophils % (auto) 2.8 % (0.0-7.0); Hematocrit 26.7 % (36.0-46.0); Hemoglobin 9.3 g/dL (12.2-16.2); Lymphocytes % (auto) 10.3 % (10.0-50.0); Mean Corpuscular Hgb Conc. 34.7 g/dL (32.0-36.0); Mean Corpuscular Volume 92.2 fL (80.0-100.0); Monocytes # (auto) 1.4 10 ^3/uL (0-1.3); Monocytes % (auto) 13.7 % (0.0-12.0); Neutrophils # (auto) 7.3 10 ^3/uL (1.6-8.6); Neutrophils % (auto) 72.8 % (37.0-80.0); Platelet Count (auto) 351 10^3/uL (140-450); Red Cell Distribution Width 14.4 % (11.8-14.3)
[2021-04-15 09:27] VITALS: BP 101/58
[2021-04-15] MEDS: CARISOPRODOL 350 MG TAB PO SCH ×2 (10:32→21:49)
[2021-04-15] MEDS: SPIRONOLACTONE 25 MG TAB PO SCH (10:32)
[2021-04-15] MEDS: POTASSIUM EFFERVESENT TAB 25 MEQ PO SCH ×2 (10:32→21:48)
[2021-04-15] MEDS: LACTULOSE 20Gm/30ML SOLN PO PRN (10:33)
[2021-04-15 13:00] VITALS: BP 108/62
[2021-04-15 17:00] VITALS: BP 110/56
[2021-04-15] MEDS ORDERED: FLEET ENEMA(ADULT) 135 ML PR ONE (17:45)
[2021-04-15] MEDS ORDERED: TPN PER PHARMACY IV NR ×10 (20:00)
[2021-04-15 22:00] VITALS: BP 97/50
[2021-04-15] MEDS: HYDROcodone-ACET 10/325MG TAB PO PRN (22:11)
[2021-04-16] MEDS: InsuLIN REG 1unit/0.01ml Soln (100units/ml) SC SCH ×4 (00:02→17:23)
[2021-04-16] MEDS: ACCU-CHEK COMFORT CURVE STRIP VI SCH ×4 (00:02→17:24)
[2021-04-16] MEDS: HYDROmorphone HCL 2 MG/ML VL IV PRN (03:17)
[2021-04-16 05:00] VITALS: BP 117/64
[2021-04-16] MEDS: FUROSEMIDE INJECTION 100 MG in SODIUM CHL 0.9% 100 ML IV SCH ×2 (05:07→15:00)
[2021-04-16] MEDS: ADEMPAS 1.5 MG PO SCH ×2 (06:14→14:00)
[2021-04-16] MEDS: ceFAZolin 1GM/50ML 50 ML IV SCH ×2 (06:14→14:00)
[2021-04-16 06:42] LABS: Albumin 2.7 g/dL (3.4-5.0); Calcium 8.4 mg/dL (8.5-10.1); Magnesium 2.8 mg/dL (1.6-2.6); Potassium 5.1 mmol/L (3.5-5.1)
[2021-04-16 06:46] LABS: BUN/Creatinine Ratio 39.9; Bilirubin, Total 0.4 mg/dL (0.2-1.0); Phosphorus 3.9 mg/dL (2.5-4.90); Total Protein 7.4 g/dL (6.4-8.2)
[2021-04-16 08:00] VITALS: BP 114/63
[2021-04-16] MEDS ORDERED: LORazepam 2MG/ML-1ML VIAL IV PRN (08:30)
[2021-04-16] MEDS ORDERED: HYDROmorphone HCL 2 MG/ML VL IV PRN (08:30)
[2021-04-16] MEDS: SPIRONOLACTONE 25 MG TAB PO SCH (10:00)
[2021-04-16] MEDS: CARISOPRODOL 350 MG TAB PO SCH (10:00)
[2021-04-16] MEDS: POTASSIUM EFFERVESENT TAB 25 MEQ PO SCH (10:00)
[2021-04-16] MEDS ORDERED: MORPHINE SUL PCA 50 ML IV SCH (10:45)
[2021-04-16 13:17] VITALS: BP 94/51
[2021-04-16] MEDS: DOBUTamine 1000MCG/ML 250 ML IV SCH (13:59)
[2021-04-16] MEDS ORDERED: TPN PER PHARMACY IV NR ×9 (20:00)
== END 2021-04-16 20:24 | DRG 604 ==
LOC: ER 04:20 → EDBD 04:20 → TELE 15:18 → TELE-CENTR 18:46
PROVIDERS: ADMIT Internal Medicine Cardiovascular Disease; ATTEND Internal Medicine Cardiovascular Disease
DX: S00.83XA Contusion of other part of head, initial encounter (principal); J96.90 Respiratory failure, unspecified, unspecified whether with hypoxia or hypercapnia; N17.9 Acute kidney failure, unspecified; I13.0 Hypertensive heart and chronic kidney disease with heart failure and stage 1 through stage 4 chronic kidney disease, or unspecified chronic kidney disease; E44.1 Mild protein-calorie malnutrition; L03.116 Cellulitis of left lower limb; Z68.1 Body mass index [BMI] 19.9 or less, adult; I50.30 Unspecified diastolic (congestive) heart failure; R64 Cachexia; Z20.822 Contact with and (suspected) exposure to COVID-19; Z66 Do not resuscitate; Z51.5 Encounter for palliative care; D63.1 Anemia in chronic kidney disease; S80.12XA Contusion of left lower leg, initial encounter; S80.01XA Contusion of right knee, initial encounter; Z96.642 Presence of left artificial hip joint; M81.0 Age-related osteoporosis without current pathological fracture; N18.32 Chronic kidney disease, stage 3b; I25.10 Atherosclerotic heart disease of native coronary artery without angina pectoris; I27.21 Secondary pulmonary arterial hypertension; M54.12 Radiculopathy, cervical region; I25.5 Ischemic cardiomyopathy; S80.02XA Contusion of left knee, initial encounter; W18.39XA Other fall on same level, initial encounter; Y93.89 Activity, other specified; Y92.89 Other specified places as the place of occurrence of the external cause; Y99.8 Other external cause status; Z88.8 Allergy status to other drugs, medicaments and biological substances; Z88.6 Allergy status to analgesic agent; Z86.73 Personal history of transient ischemic attack (TIA), and cerebral infarction without residual deficits; I25.2 Old myocardial infarction; Z95.1 Presence of aortocoronary bypass graft; Z95.5 Presence of coronary angioplasty implant and graft; Z82.61 Family history of arthritis; Z82.5 Family history of asthma and other chronic lower respiratory diseases; Z82.49 Family history of ischemic heart disease and other diseases of the circulatory system; Z82.0 Family history of epilepsy and other diseases of the nervous system; Z82.3 Family history of stroke
CPT/HCPCS: 36415; 36600; 70450; 70486; 71045; 71046; 72125; 73562; 73590; 80048; 80053; 81001; 82040; 82805; 82962; 83605; 83735; 83880; 84100; 84478; 85025; 85049; 85610; 85730; 87081; 87426; 93005; 93971; 96365; 96366; 96367; G0378; G0463; J0690; J0696; J1642; J1815; J3480; J7131